=== PATIENT | male | born 1945 | race American Indian/Alaskan Native ===

== ENCOUNTER 2018-11-25 14:45 | Emergency (ER) | payer OTHER ==
[~2018-11-25] VITALS: Ht 177.8 cm; Wt 77.1 kg
[~2018-11-25 14:45] MED LIST: KEFLEX500 MG PO; NORCO 5-325 TA1 EACH PO
== END 2018-11-25 17:00 | disposition home or self-care (01) ==
LOC: ED 14:45
PROC: 0HQ0XZZ Repair Scalp Skin, External Approach (ICD-10-PCS; principal; 2018-11-25)
DX: S01.01XA Laceration without foreign body of scalp, initial encounter (principal); V19.9XXA Pedal cyclist (driver) (passenger) injured in unspecified traffic accident, initial encounter
CPT/HCPCS: 12002; 99282-25

== ENCOUNTER 2018-12-11 15:29 | Emergency (ER) | payer OTHER ==
[~2018-12-11] VITALS: Ht 177.8 cm; Wt 79.4 kg
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
== END 2018-12-11 16:07 | disposition home or self-care (01) ==
LOC: ED 15:29
DX: S01.01XD Laceration without foreign body of scalp, subsequent encounter (principal); Z90.49 Acquired absence of other specified parts of digestive tract
CPT/HCPCS: 99281

== ENCOUNTER 2019-12-23 18:43 | Inpatient (IN) | payer MEDICARE, MEDICAID, OTHER ==
[~2019-12-23] VITALS: Ht 177.8 cm; Wt 85.9 kg
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
--- OUTSIDE RECORDS SUMMARY | ~2019-12-23 | XMS | Encounter Summary ---
Demographics + + + | Address | [address] | | | [place] [address] | + + + | Home Phone | | + + + | Preferred Language | Unknown | + + + | Marital Status | Single | + + + | Quaker Affiliation | 1041 | + + + | Race | Unknown | + + + | Ethnic Group | Unknown | + + + Author + + + | Author | [facility] | | | and [place] | + + + | Organization | [facility] | | | and [place] | + + + | Address | Unknown | + + + | Phone | Unavailable | + + + Support + + +---------+ + | Name | Relationship | Address | Phone | + + +---------+ + | Jyoti Fay | ECON | Unknown | | + + +---------+ + Care Team Providers + +------+ + | Care Fiscal Accounting Clerk Name | Role | Phone | + +------+ + | Tomasz Vu MD | PCP | | + +------+ + Reason for Visit +--------+ + | Reason | Comments | +--------+ + | Other | plan of care | +--------+ + Encounter Details +--------+ + + + + | Date | Type | Department | Care Team | Description | +--------+ + + + + | 12/06/ | Telephone | [facility] | Andrew Gamboa, | Other (plan of care) | | 2020 | | CARDIOLOGY [address] | MD [address] | | | | | [place], | [place], | | | | | [place] [address] | [place] [address] | | | | | [phone] | [phone] | | | | | | | | +--------+ + + + + Social History + +-------+ +--------+------+ | Tobacco Use | Types | Packs/Day | Years | Date | | | | | Used | | + +-------+ +--------+------+ | Smoker, Current | | | | | | Status Unknown | | | | | + +-------+ +--------+------+ + + + | Sex Assigned at | Date Recorded | | | | + + + | Male | | + + + + + + + | Job Start Date | Occupation | Industry | + + + + | Not on file | Not on file | Not on file | + + + + + + + + | Travel History | Travel Start | Travel End | + + + + + + | No recent travel history available. | + + documented as of this encounter Functional Status + + + + | Functional Status | Response | Date of Assessment | + + + + | Are you deaf or do you have serious | No | 12/04/2019 | | difficulty hearing? | | | + + + + | Are you blind or do you have serious | No | 12/04/2019 | | difficulty seeing, even when wearing | | | | glasses? | | | + + + + | Do you have serious difficulty walking or | No | 12/04/2019 | | climbing stairs? (5 years old or older) | | | + + + + | Do you have difficulty dressing or bathing? | No | 12/04/2019 | | (5 years old or older) | | | + + + + | Because of a physical, mental, or emotional | No | 12/04/2019 | | condition, do you have difficulty doing | | | | errands alone such as visiting a doctor's | | | | office or shopping? [15 years old or | | | | older)] | | | + + + + + + + + | Cognitive Status | Response | Date of Assessment | + + + + | Because of a physical, mental, or emotional | No | 12/04/2019 | | condition, do you have serious difficulty | | | | concentrating, remembering, or making | | | | decisions? (5 years old or older) | | | + + + + documented as of this encounter Plan of Treatment +--------+ + + + + | Date | Type | Specialty | Care Team | Description | +--------+ + + + + | 12/30/ | Hospital | Radiology | Colin Diallo, | Cardiomyopathy, | | 2019 | Encounter | | MD Nash [address] | unspecified type | | | | | [address] [place], | ([facility]); [place], | | | | | [place] [address] | unspecified syncope | | | | | [phone] | type; Atrial | | | | | | flutter, unspecified | | | | | | type ([facility]) | +--------+ + + + + | 12/30/ | Surgery | Radiology | Colin Diallo, | CV EP ABLATION AF | 2019 | | | MD Nash [address] | | | | | | [address] [place], | | | | | | [place] [address] | | | | | | [phone] | | | | | | | | +--------+ + + + + | 01/14/ | Virtual | Cardiology | Andrew Gamboa, | | | 2019 | Office | | MD Richie Leone | | | | Visit | | [place], | | | | | | [place] [address] | | | | | | [phone] | | | | | | | | +--------+ + + + + documented as of this encounter Visit Diagnoses Not on filedocumented in this encounter"
--- OUTSIDE RECORDS SUMMARY | ~2019-12-23 | XMS | Encounter Summary ---
Demographics + + + | Address | [address] | | | [place] [address] | + + + | Home Phone | | + + + | Preferred Language | Unknown | + + + | Marital Status | Single | + + + | Orthodox Affiliation | 1041 | + + + | Race | Unknown | + + + | Ethnic Group | Unknown | + + + Author + + + | Author | [facility] | | | and [place] | + + + | Organization | [facility] | | | and [place] [...] Team Providers + +------+ + | Care Steam Pressure Chamber Operator Name | Role | Phone | + +------+ + | Tomasz Vu MD | PCP | | + +------+ + Reason for Visit + + + | Reason | Comments | + + + | Appointment | Consent | + + + Encounter Details +--------+ + + + + | Date | Type | Department | Care Team | Description | +--------+ + + + + | 12/02/ | Telephone | [facility] | Colin Diallo, | Appointment | | 2019 | | [facility] | [address] | (Consent) | | | | [address] | [address] [place], | | | | | [address] [place] | [place] [address] | | | | | [address] | [phone] | | | | | [phone] | | | +--------+ + + + [...] | | 2019 | Encounter | | [address] | unspecified type | | | | | [address] [place], | ([facility]); [place], | | | | | [place] [address] | unspecified syncope | | | | | [phone] | type; Atrial | | | | | | flutter, unspecified | | | | | | type ([facility]) | +--------+ + + + + | 12/30/ | Surgery | Radiology | Colin Diallo, | CV EP ABLATION AF | | 2019 | | | [address] | | | | | | [address] [place], | | | | | | [place] [address] | | | | | | [phone] | | | | | | | | +--------+ + + + + | 01/14/ | Virtual | Cardiology | Andrew Gamboa, | | | 2019 | Office | | MD Richie Leone | | | | Visit | | [place], | | | | | | [place] [address] | | | | | | [phone] | | | | | | | | +--------+ + + + + documented as of this encounter Visit Diagnoses Not on filedocumented in this encounter"
--- OUTSIDE RECORDS SUMMARY | ~2019-12-23 | XMS | Encounter Summary ---
Demographics + + + | Address | [address] | | | [place] [address] | + + + | Home Phone | | + + + | Preferred Language | Unknown | + + + | Marital Status | Single | + + + | Presybeterian Affiliation | 1041 | + + + | Race | Unknown | + + + | Ethnic Group | Unknown | + + + Author + + + | Author | [facility] | | | and [place] | + + + | Organization | [facility] | | | and [place] [...] Team Providers + +------+ + | Care Supervisor Braiding Name | Role | Phone | + +------+ + | Tomasz Vu MD | PCP | | + +------+ + Reason for Visit +---------+ + | Reason | Comments | +---------+ + | Dysuria | | +---------+ + Encounter Details +--------+ + + + + | Date | Type | Department | Care Team | Description | +--------+ + + + + | 12/19/ | Telephone | [facility] | Karla Becerra M, | Dysuria | | 2019 | | [facility] | RADIO REPAIRER [address] | | | | | [address] | [address] | | | | | [place] [address] [facility] | [place] [address] | | | | | [place], [place] | [phone] | | | | | [address] | | | | | | [phone] | | | +--------+ + + + + Social History + + + +--------+------+ | Tobacco Use | Types | Packs/Day | Years | Date | | | | | Used | | + + + +--------+------+ | Never Smoker | Cigarettes | | | | + + + +--------+------+ + +---+---+---+ | Smokeless Tobacco: | | | | | Never Used | | | | + +---+---+---+ + + +---------+ + | Alcohol Use | Drinks/Week | oz/Week | Comments | + + +---------+ + | Not Currently | | | | + + +---------+ + + +--------+ + | Physical Activity | Answer | Date Recorded | + +--------+ + | On average, how many days per week do you | 0 days | 12/18/2019 | | engage in moderate to strenuous exercise | | | | (like walking fast, running, jogging, | | | | dancing, swimming, biking, or other | | | | activities that cause a light or heavy | | | | sweat)? | | | + +--------+ + | On average, how many minutes do you engage | 0 min | 12/18/2019 | | in exercise at this level? | | | + +--------+ + + + + | Sex Assigned at | Date Recorded | | | | + + + | Male | 12/16/2019 9:57 AM PDT | + + + + + + [...] | 2019 | Encounter | | [address] | unspecified type | | | | | [address] [place], | ([facility]); [place], | | | | | [place] [address] | unspecified syncope | | | | | [phone] | type; Atrial | | | | | | flutter, unspecified | | | | | | type ([facility]) | +--------+ + + + + | 12/30/ | Surgery | Radiology | Colin Diallo, | CV EP ABLATION AF | 2019 | | | [address] | | | | | | [address] [place], | | | | | | [place] [address] | | | | | | [phone] | | | | | | | | +--------+ + + + + | 01/14/ | Virtual | Cardiology | Andrew Gamboa, | | | 2019 | Office | | [address] | | | | Visit | | [place], | | | | | | [place] [address] | | | | | | [phone] | | | | | | | | +--------+ + + + + documented as of this encounter Visit Diagnoses Not on filedocumented in this encounter"
--- OUTSIDE RECORDS SUMMARY | ~2019-12-23 | XMS | Encounter Summary ---
Demographics + + + | Address | [address] | | | [place] [address] | + + + | Home Phone | | + + + | Preferred Language | Unknown | + + + | Marital Status | Single | + + + | Sabianism Affiliation | 1041 | + + + | Race | Unknown | + + + | Ethnic Group | Unknown | + + + Author + + + | Author | [facility] | | | and [place] | + + + | Organization | [facility] | | | and [place] [...] Team Providers + +------+ + | Care Audio Production Instructor Name | Role | Phone | + +------+ + | Tomasz Vu MD | PCP | | + +------+ + Reason for Referral Evaluate & Treat (Routine) +--------+ + + + + + | Status | Reason | Specialty | Diagnoses / | Referred By | Referred To | | | | | Procedures | Contact | Contact | +--------+ + + + + + | Closed | Specialty | Cardiology | Diagnoses | Bee, | Yoel, | | | Services | | Typical | MD Andrew | Colin Benitez MD | | | Required | | atrial | [address] | [address] | | | | | flutter | [address] | [address] | | | | | (HCC) | [place], | [address], | | | | | Procedures | [place] [address] | [place] [address] | | | | | 12/21> DOS | Phone: | Phone: | | | | | 12/17> PEND | [phone] | [phone] | | | | | [facility] - URGENT | Fax: | Fax: | | | | | REFERRAL TO | [phone] | [phone] | | | | | YOEL, | | | | | | | COLIN | | | | | | | ELECTROPHYSI | | | | | | | OLOGIST FOR | | | | | | | OV possible | | | | | | | ablation | | | +--------+ + + + + + Encounter Details +--------+ + + + + | Date | Type | Department | Care Team | Description | +--------+ + + + + | 12/01/ | Orders Only | [facility] [place] | Andrew Gamboa, | Typical atrial | | 2020 | | CARDIOLOGY [address] | MD [address] [place] | flutter (HCC) | | | | [place], | [place], | (Primary Dx) | | | | [place] [address] | [place] [address] | | | | | [phone] | | | | | | | [...] | 2019 | Encounter | | [address] | unspecified type | | | | | [address] [place], | ([facility]); [place], | | | | | [place] [address] | unspecified syncope | | | | | [phone] | type; Atrial | | | | | | flutter, unspecified | | | | | | type ([facility]) | +--------+ + + + + | 12/30/ | Surgery | Radiology | Colin Diallo, | CV EP ABLATION AF | 2019 | | | [address] | | | | | | [address] [place], | | | | | | [place] [address] | | | | | | [phone] | | | | | | | | +--------+ + + + + | 01/14/ | Virtual | Cardiology | Andrew Gamboa, | | 2019 | Office | | MD Richie Leone | | | | Visit | | [place], | | | | | | [place] [address] | | | | | | [phone] | | | | | | | | +--------+ + + + + + + +--------+ + + | Name | Type | Priori | Associated Diagnoses | Order Schedule | | | | ty | | | + + +--------+ + + | External Referral to | Outpatient | Routin | Typical atrial | Ordered: 12/02/2019 | | [facility] | Referral | e | flutter (HCC) | | | [place] | | | | | + + +--------+ + + documented as of this encounter Visit Diagnoses + + | Diagnosis | + + | Typical atrial flutter (HCC) - Primary Atrial flutter | + + documented in this encounter"
--- OUTSIDE RECORDS SUMMARY | ~2019-12-23 | XMS | Encounter Summary ---
Demographics + + + | Address | [address] | | | [place] [address] | + + + | Home Phone | | + + + | Preferred Language | Unknown | + + + | Marital Status | Single | + + + | Mosque Affiliation | 1041 | + + + | Race | Unknown | + + + | Ethnic Group | Unknown | + + + Author + + + | Author | [facility] | | | and [place] | + + + | Organization | [facility] | | | and [place] [...] Team Providers + +------+ + | Care Scaffold Worker Name | Role | Phone | + [...] + | 12/02/ | Telephone | [facility] | Colin Diallo, | Appointment | | 2019 | | [facility] | [address] | (Consent) | | | | [address] | [address] [place], | | | | | [address] [place] [place] | [place] [address] | | | | | [address] | [phone] | | | | | [phone] | | | +--------+ + + + [...] | | | | | [address] [place], | ([facility]); [place], | | | | | [place] [address] | unspecified syncope | | | | | [phone] | type; Atrial | | | | | | flutter, unspecified | | | | | | type ([facility]) | +--------+ + + + + | 12/30/ | Surgery | Radiology | Colin Diallo, | CV EP ABLATION AF | | 2019 | | | [address] | | | | | | [address] [place], | | | | | | [place] [address] | | | | | | [phone] | | | | | | | | +--------+ + + + + | 01/14/ | Virtual | Cardiology | Andrew Gamboa, | | | 2019 | Office | | MD Richie Leone | | | | Visit | | [place], | | | | | | [place] [address] | | | | | | [phone] | | | | | | | | +--------+ + + + + documented as of this encounter Visit Diagnoses Not on filedocumented in this encounter"
--- OUTSIDE RECORDS SUMMARY | ~2019-12-23 | XMS | Encounter Summary ---
Demographics + + + | Address | [address] | | | [place] [address] | + + + | Home Phone | | + + + | Preferred Language | Unknown | + + + | Marital Status | Single | + + + | Hoahaoism Affiliation | 1041 | + + + | Race | Unknown | + + + | Ethnic Group | Unknown | + + + Author + + + | Author | [facility] | | | and [place] | + + + | Organization | [facility] | | | and [place] | [...] Team Providers + +------+ + | Care Screen Writer Name | Role | Phone | + +------+ + | Tomasz Vu MD | PCP | | + +------+ + Encounter Details +--------+ + + + + | Date | Type | Department | Care Team | Description | +--------+ + + + + | 12/03/ | Imaging | [facility] | Provider, | | | 2019 | Exam | [facility] | MD [address] | | | | | IMAGING [address] | [address] | | | | | [address] | [place] [address] | | | | | [place] [address] | | | | | | [phone] | | | +--------+ + + + + Social History + +-------+ +--------+------+ | Tobacco Use | Types | Packs/Day | Years | Date | | | | | Used | | + +-------+ +--------+------+ | Never Assessed | | | | | + +-------+ [...] | Colin Diallo, | Cardiomyopathy, | | 2020 | Encounter | | [address] | unspecified type | | | | | [address] | ([facility]); [place], | | | | | [place] [address] | unspecified syncope | | | | | [phone] | type; Atrial | | | | | | flutter, unspecified | | | | | | type (HCC) | +--------+ + + + + | 12/30/ | Surgery | Radiology | Colin Diallo, | CV EP ABLATION AF | | 2019 | | | [address] | | | | | | [address] [place], | | | | | | [place] [address] | | | | | | [phone] | | | | | | | | +--------+ + + + + | 01/14/ | Virtual | Cardiology | Andrew Gamboa, | | | 2019 | Office | | [facility] | | | | Visit | | [place], | | | | | | [place] [address] | | | | | | [phone] | | | | | | | | +--------+ + + + + documented as of this encounter Procedures + +--------+ + + + | Procedure Name | Priori | Date/Time | Associated Diagnosis | Comments | | | ty | | | | + +--------+ + + + | XR CHEST 1 VIEW | Routin | 12/01/2019 | | Results for this | | | e | 1:30 PM | | procedure are in the | | | | PDT | | results section. | + +--------+ + + + documented in this encounter Results XR Chest 1 Vw (12/01/2019 1:30 PM PDT) + + | Specimen | + + | | + + + + + | Narrative | Performed At | + + + | External films for comparison only | [facility] | | | | | No results will be in the chart. | | + + + + +---------+ + + | Performing | Address | City/State/Zipcode | Phone Number | | Organization | | | | + +---------+ + + | [facility] | | | | + +---------+ + + documented in this encounter Visit Diagnoses Not on filedocumented in this encounter"
--- OUTSIDE RECORDS SUMMARY | ~2019-12-23 | XMS | Encounter Summary ---
Demographics + + + | Address | [address] | | | [place] [address] | + + + | Home Phone | | + + + | Preferred Language | Unknown | + + + | Marital Status | Single | + + + | Adventist Affiliation | 1041 | + + + | Race | Unknown | + + + | Ethnic Group | Unknown | + + + Author + + + | Author | [facility] | | | and [place] | + + + | Organization | [facility] | | | and [place] [...] Team Providers + +------+ + | Care Recruitment Assistant Name | Role | Phone | + +------+ + | Tomasz Vu MD | PCP | | + +------+ + Encounter Details +--------+ + + + + | Date | Type | Department | Care Team | Description | +--------+ + + + + | 12/03/ | [facility] | [facility] | Stephanie Ashby, PT | | | 2020 | Encounter | MED CTR ACUTE | | | | | | PHYSICAL THERAPY | | | | | | [address] | | | | | | [place] [address] | | | | | | [phone] | | | +--------+ + + + [...] + + documented as of this encounter Medications at Time of Discharge + + + +---------+ + + | Medication | Sig | Dispensed | Refills | Start | End Date | | | | | | Date | | + + + +---------+ + + | amiodarone | 2 tablets twice a | 100 | 0 | 12/04/19 | | | (PACERONE) 200 mg | day for 6 days then | tablet | | 20 | | | tablet | reduce dose to 1 | | | | | | | tablet once a day by | | | | | | | mouth | | | | | + + + +---------+ + + | apixaban (ELIQUIS) | Take 1 tablet by | 60 | 0 | 12/04/19 | | | 5 mg | mouth 2 times daily. | tablet | | 20 | | | tabletIndications: | Indications: Atrial | | | | | | Atrial Fibrillation | Fibrillation | | | | | + + + +---------+ + + | lisinopril | Take 1 tablet by | 60 | 0 | 12/04/19 | | | (PRINIVIL, ZESTRIL) | mouth 2 times daily | tablet | | 20 | | | 5 mg tablet | (at breakfast and | | | | | | | bedtime). | | | | | + + + +---------+ + + | UNCODED DME | Blood pressure kit | 1 each | 0 | 12/04/19 | | | | for home monitoring | | | 20 | | | | check BP twice a day | | | | | | | and prn | | | | | + + + +---------+ + + | UNCODED DME | Finger Oximeter for | 1 each | 0 | 12/04/19 | | | | home use check twice | | | 20 | | | | a day and prn | | | | | + + + +---------+ + + | aspirin 81 MG EC | Take 1 tablet by | 30 | 0 | 12/05/19 | | | tablet | mouth Daily. | tablet | | 20 | 0 | + + + +---------+ + + | atorvaSTATin | Take 1 tablet by | 30 | 0 | 12/04/19 | | | (LIPITOR) 20 mg | mouth nightly. | tablet | | 20 | 0 | | tablet | | | | | | + + + +---------+ + + documented as of this encounter Plan of Treatment +--------+ + + + + | Date | Type | Specialty | Care Team | Description | +--------+ + + + + | 12/30/ | Hospital | Radiology | Colin Diallo, | Cardiomyopathy, | | 2019 | Encounter | | MD Nash [address] | unspecified type | | | | | [address] [place], [place] [address], | ([facility]); Syncope, | | | | | [place] [address] | unspecified syncope | | | | | [phone] | type; Atrial | | | | | | flutter, unspecified | | | | | | type ([facility]) | +--------+ + + + + | 12/30/ | Surgery | Radiology | Colin Diallo, | CV EP ABLATION AF | | 2019 | | | MD Nash [address] | | | | | | [address] [place], | | | | | | [place] [address] | | | | | | [phone] | | | | | | | | +--------+ + + + + | 01/14/ | Virtual | Cardiology | Andrew Gamboa, | | | 2019 | Office | | MD Richie Leone | | | | Visit | | [place], | | | | | | [place] [address] | | | | | | [phone] | | | | | | | | +--------+ + + + + documented as of this encounter Visit Diagnoses Not on filedocumented in this encounter"
--- OUTSIDE RECORDS SUMMARY | ~2019-12-23 | XMS | Encounter Summary ---
Demographics + + + | Address | [address] | | | [place] [address] | + + + | Home Phone | | + + + | Preferred Language | Unknown | + + + | Marital Status | Single | + + + | Adventist Affiliation | 1041 | + + + | Race | Unknown | + + + | Ethnic Group | Unknown | + + + Author + + + | Author | [facility] | | | and [place] | + + + | Organization | [facility] | | | and [place] [...] Team Providers + +------+ + | Care Qa Internship Name | Role | Phone | + [...] | 12/06/ | Telephone | [facility] [place] | Andrew Gamboa, | Other (plan of care) | | 2020 | | CARDIOLOGY [address] | MD [address] [place] | | | | | [place], | [place], | | | | | [place] [address] | [place] [address] | | | | | [phone] | [phone] | | | | | | | [...] 2019 | Encounter | | MD Nash [address] | unspecified type | | | | | [address] [place], | ([facility]); [place], | | | | | [place] [address] | unspecified syncope | | | | | [phone] | type; Atrial | | | | | | flutter, unspecified | | | | | | type ([facility]) | +--------+ + + + + | 12/30/ | Surgery | Radiology | Colin Diallo, | CV EP ABLATION AF | 2019 | | | MD Nash [address] | | | | | | [address] [place], | | | | | | [place] [address] | | | | | | [phone] | | | | | | | | +--------+ + + + + | 01/14/ | Virtual | Cardiology | Andrew Gamboa, | | | 2019 | Office | | MD [address] | | | | Visit | | [place], | | | | | | [place] [address] | | | | | | [phone] | | | | | | | | +--------+ + + + + documented as of this encounter Visit Diagnoses Not on filedocumented in this encounter"
--- OUTSIDE RECORDS SUMMARY | ~2019-12-23 | XMS | Encounter Summary ---
Demographics + + + | Address | [address] | | | [place] [address] | + + + | Home Phone | | + + + | Preferred Language | Unknown | + + + | Marital Status | Single | + + + | Zoroastrian Affiliation | 1041 | + + + | Race | Unknown | + + + | Ethnic Group | Unknown | + + + Author + + + | Author | [facility] | | | and [place] | + + + | Organization | [facility] | | | and [place] [...] Team Providers + +------+ + | Care Barrel And Receiver Aligner Name | Role | Phone | + +------+ + | Tomasz Vu MD | PCP | | + +------+ + Reason for Visit + + + | Reason | Comments | + + + | Hospital Follow-up | | + + + | Atrial Flutter | | + + + Evaluate & Treat (Routine) +--------+ + + + + + | Status | Reason | Specialty | Diagnoses / | Referred By | Referred To | | | | | Procedures | Contact | Contact | +--------+ + + + + + | Closed | Specialty | Cardiology | Diagnoses | Joseph, | Bee | | | Services | | Acute | Heath Fang MD | MD Andrew | | | Required | | systolic | [address] | | | | | congestive | [address] | [address] | | | | | heart | [place], | [place], | | | | | failure | [place] [address] | [place] [address] | | | | | (HCC) | Phone: | Phone: | | | | | | [phone] | [phone] | | | | | | Fax: | Fax: | | | | | | [phone] | [phone] | +--------+ + + + + + Encounter Details +--------+ + + + + | Date | Type | Department | Care Team | Description | +--------+ + + + + | 12/15/ | Virtual | [facility] [place] | Andrew Gamboa, | Typical atrial | | 2020 | Office | CARDIOLOGY [address] | MD [address] | flutter (HCC) | | | Visit | [place], | [place], | (Primary Dx) | | | | [place] [address] | [place] [address] | | | | | [phone] | | | | | | | [...] | | + + +---------+ + + + + | Sex Assigned [...] | 2019 | Encounter | | [address] | unspecified type | | | | | [address] [place] | ([facility]); [place], | | | | | [place] [address] | unspecified syncope | | | | | [phone] | type; Atrial | | | | | | flutter, unspecified | | | | | | type ([facility]) | +--------+ + + + + | 12/30/ | Surgery | Radiology | Colin Diallo, | CV EP ABLATION AF | 2019 | | | [address] | | | | | | [address] [place], | | | | | | [place] [address] | | | | | | [phone] | | | | | | | | +--------+ + + + + | 01/14/ | Virtual | Cardiology | Andrew Gamboa, | | | 2019 | Office | | [address] [place] | | | | Visit | | [place], | | | | | | [place] [address] | | | | | | [phone] | | | | | | | | +--------+ + + + + + +------+--------+ + + | Name | Type | Priori | Associated Diagnoses | Order Schedule | | | | ty | | | + +------+--------+ + + | ECG 12 lead | ECG | Routin | Typical atrial | Ordered: 12/16/2019 | | | | e | flutter (HCC) | | + +------+--------+ + + documented as of this encounter Visit Diagnoses + + | Diagnosis | + + | Typical atrial flutter (HCC) - Primary Atrial flutter | + + documented in this encounter"
--- OUTSIDE RECORDS SUMMARY | ~2019-12-23 | XMS | Encounter Summary ---
Demographics + + + | Address | [address] | | | [place] [address] | + + + | Home Phone | | + + + | Preferred Language | Unknown | + + + | Marital Status | Single | + + + | Protestant Affiliation | 1041 | + + + | Race | Unknown | + + + | Ethnic Group | Unknown | + + + Author + + + | Author | [facility] | | | and [place] | + + + | Organization | [facility] | | | and [...] Team Providers + +------+ + | Care Property Management Assistant Name | Role | Phone | + +------+ + | Tomasz Vu MD | PCP | | + +------+ + Encounter Details +--------+ + + + + | Date | Type | Department | Care Team | Description | +--------+ + + + + | 12/01/ | Orders Only | [facility] | Ana Nino, | Atrial flutter, | | 2019 | | MED CTR OR PRE OP | RN | unspecified type | | | | [address] [place] | | ([facility]) | | | | [place] [address] | | | | | | [phone] | | | +--------+ + + + [...] | | 2020 | Encounter | | MD [address] | unspecified type | | | | | [address] [place], | ([facility]); [place], | | | | | [place] [address] | unspecified syncope | | | | | [phone] | type; Atrial | | | | | | flutter, unspecified | | | | | | type ([facility]) | +--------+ + + + + | 12/30/ | Surgery | Radiology | Colin Diallo, | CV EP ABLATION AF | | 2019 | | | [address] | | | | | | [address] [place], | | | | | | [place] [address] | | | | | | [phone] | | | | | | | | +--------+ + + + + | 01/14/ | Virtual | Cardiology | Andrew Gamboa, | | 2019 | Office | | MD [address] [place] | | | | Visit | | [place], | | | | | | [place] [address] | | | | | | [phone] | | | | | | | | +--------+ + + + + documented as of this encounter Results EP CARDIOVERSION (12/02/2019 1:45 PM PDT) + + + | Narrative | Performed At | + + + | Andrew Gamboa MD 12/02/2019 1:45 PM CARDIOVERSION | [facility] | | REPORT PATIENT NAME/: Esa Leigh, (1945) | [facility] | | DATE OF PROCEDURE: 12/02/2019 | [facility] | | RESIDENTIAL PROPERTY CONSULTANT: Andrew Gamboa MD Procedures | - IMAGING | | Performed: 1. Deep sedation. 2. Direct current external | | | cardioversion. Indication: Symptomatic persistent atrial flutter | | | OPERATIVE TECHNIQUE: The patient was attached to hemodynamic | | | monitoring. Defibrillator pads were placed in the AP position. | | | Nursing and Respiratory Therapy were present. After informed | | | consent was obtained the patient was sedated by the anesthesia | | | service . Once deep sedation was achieved, synchronized, biphasic | | | DC cardioversion was performed with successful synchronized 150 J. | | | There was succesful conversion to sinus rhythm. The patient was | | | then monitored until fully alert and left the procedure area in | | | stable condition. IMPRESSION: Succesful DC | | | cardioversion. No apparent complications Electronically | | | signed by: Andrew Gamboa MD on 12/02/2019 at 1:45 PM | | + + + + + + + + | Performing | Address | City/State/Zipcode | Phone Number | | Organization | | | | + + + + + | [facility] | [address] | [place] | [phone] | | [facility] | | [address] | | | - IMAGING | | | | + + + + + documented in this encounter Visit Diagnoses + + | Diagnosis | + + | Atrial flutter, unspecified type (HCC) | + + documented in this encounter"
--- OUTSIDE RECORDS SUMMARY | ~2019-12-23 | XMS | Encounter Summary ---
Demographics + + + | Address | [address] | | | [place] [address] | + + + | Home Phone | | + + + | Preferred Language | Unknown | + + + | Marital Status | Single | + + + | Yarsani Affiliation | 1041 | + + + | Race | Unknown | + + + | Ethnic Group | Unknown | + + + Author + + + | Author | [facility] | | | and [place] | + + + | Organization | [facility] | | | and [place] | + [...] Team Providers + +------+ + | Care Tight Rope Walker Name | Role | Phone | + +------+ + | Tomasz Vu MD | PCP | | + +------+ + Encounter Details +--------+ + + + + | Date | Type | Department | Care Team | Description | +--------+ + + + + | 12/01/ | Anesthesia | [facility] | Kem Kumar | | | 2020 | Event | [facility] ECHO [address] | MD Sam [address] | | | | | [place] | [address] [place] | | | | | [place] [address] | [address] | | | | | [phone] | | | | | | | Ivan Gatica | | | | | | MD Conchis [address] | | | | | | [address] [facility] | | | | | | [place] [address] | | | | | | | | | | | | | | +--------+ + + + + Anesthesia Record + + + + + | Procedure Name | Responsible | Anesthesia Start | Anesthesia Stop Time | | | Anesthesiologist | Time | | + + + + + | ECHO TRANSESOPHAGEAL | Kem Kumar, | 12/02/19 1313 | 12/02/19 1334 | | (ANDI) | | | | + + + + + +----+---+ + + | Da | T | Event | Comment | | te | i | | | | | m | | | | | e | | | +----+---+ + + | 04 | 1 | | | | /0 | 3 | | | | 8/ | 1 | | | | 20 | 3 | | | | 20 | | | | +----+---+ + + | | 1 | An Checkout | Pre-use anesthesia machine/equipment checkout. | | | 3 | | | | | 1 | | | | | 3 | | | +----+---+ + + | | 1 | An Start | Reassessment prior to anesthesia induction/procedure. | | | 3 | | | | | 1 | | | | | 3 | | | +----+---+ + + | | 1 | AN | Per surgeon request | | | 3 | Antibiotic | | | | 1 | declined | | | | 8 | | | +----+---+ + + | | 1 | Pre-Procedu | | | | 3 | ral Timeout | | | | 1 | Completed | | | | 8 | | | +----+---+ + + | | 1 | An | Monitors applied, supplemental O2 place, patient positioned, time | | | 3 | Induction | out taken, IV induction to the point of the patient being | | | 2 | | unconscious and un responsive, breathing spontaneously. | | | 0 | | | +----+---+ + + | | 1 | Breathing | | | | 3 | Spontaneous | | | | 2 | ly | | | | 8 | | | +----+---+ + + | | 1 | An Stop | Patient handed off to recovery nurse. | | | 3 | | | | | 4 | | | +----+---+ + + +------+ | Meds | +------+ + +--------+ | Name | Total | + +--------+ | lidocaine 2% | 40 mg | + +--------+ | propofol | 100 mg | + +--------+ | sodium chloride 0.9% (NS) | 200 mL | | infusion | | + +--------+ + + | Name | + + | O2 Flow Rate (L/Min) | + + + + | No blood administrations on file. | + + +--------+ + + + | Type | Details | Placement | Removal | +--------+ + + + | Periph | 12/01/19; Left; Posterior | 12/01/19 0000 by Lulu | 12/04/19 1535 by | | chloe | (dorsal); Forearm; | Emmanuel Jack RN | Efrain Quintero RN | | IV | vuws-tlx-zobwue catheter system; | | | | | 20 gauge; 12/04/19; 1535 | | | +--------+ + + + | Periph | 12/01/19; Right; Posterior | 12/01/19 0000 by Lulu | 12/04/19 1535 by | | eral | (dorsal); Forearm; | Emmanuel Jack RN | Efrain Quintero RN | | IV | sgeu-qti-bwhhjp catheter system; | | | | | 18 gauge; expected removal post | | | | | discharge; 12/04/19; 1535 | | | +--------+ + + + documented in this encounter Social History + +-------+ +--------+------+ | Tobacco [...] | 2019 | Encounter | | MD Charity DURAN | unspecified type | | | | | [place], | ([facility]); [place], | | | | | [place] [address] | unspecified syncope | | | | | [phone] | type; Atrial | | | | | | flutter, unspecified | | | | | | type ([facility]) | +--------+ + + + + | 12/30/ | Surgery | Radiology | Colin Diallo, | CV EP ABLATION AF | 2019 | | | MD Charity [place]PLEE | | | | | | [place], | | | | | | [place] [address] | | | | | | [phone] | | | | | | | | +--------+ + + + + | 01/14/ | Virtual | Cardiology | Andrew Gamboa, | | | 2020 | Office | | MD [address] [place] | | | | Visit | | [place], | | | | | | [place] [address] | | | | | | [phone] | | | | | | | | +--------+ + + + + documented as of this encounter Visit Diagnoses Not on filedocumented in this encounter Administered Medications + +--------+ +-------+------+------+ | Medication Order | MAR | Action | Dose | Rate | Site | | | Action | Date | | | | + +--------+ +-------+------+------+ | lidocaine (PF) 2% injection | Given | 12/02/19 | 40 mg | | | | Intravenous, PRN, Starting Wed | | 20 1:17 | | | | | 12/02/19 at 1317, Anesthesia | | PM PDT | | | | | Intra-op | | | | | | + +--------+ +-------+------+------+ +---+---+ | | | +---+---+ + +-------+ +-------+---+---+ | propofol (DIPRIVAN) injection | Given | 12/02/19 | 50 mg | | | | Intravenous, PRN, Starting Wed | | 20 1:25 | | | | | 12/02/19 at 1321, Anesthesia | | PM PDT | | | | | Intra-op | | | | | | + +-------+ +-------+---+---+ +-------+ +-------+---+---+ | Given | 12/02/19 | 50 mg | | | | | 20 1:21 | | | | | | PM PDT | | | | +-------+ +-------+---+---+ +---+---+ | | | +---+---+ + +---------+ +---+---+---+ | sodium chloride 0.9% (NS) | New Bag | 12/02/19 | | | | | infusion at 125 mL/hr, | | 20 1:03 | | | | | Intravenous, CONTINUOUS, Starting | | PM PDT | | | | | 12/02/19 at 1215, For | | | | | | | procedure only, not to exceed 1 | | | | | | | liter., Pre-op | | | | | | + +---------+ +---+---+---+ +---+---+ | | | +---+---+ documented in this encounter"
--- OUTSIDE RECORDS SUMMARY | ~2019-12-23 | XMS | Encounter Summary ---
Demographics + + + | Address | [address] | | | [place] [address] | + + + | Home Phone | | + + + | Preferred Language | Unknown | + + + | Marital Status | Single | + + + | Oriental Orthodox Affiliation | 1041 | + + + | Race | Unknown | + + + | Ethnic Group | Unknown | + + + Author + + + | Author | [facility] | | | and [place] | + + + | Organization | [facility] | | | and [place] [...] Team Providers + +------+ + | Care Blueprint Blocker Name | Role | Phone | + +------+ + | Tomasz Vu MD | PCP | | + +------+ + Reason for Referral Diagnostic/Screening (Routine) +--------+--------+ + + + + | Status | Reason | Specialty | Diagnoses / | Referred By | Referred To | | | | | Procedures | Contact | Contact | +--------+--------+ + + + + | Closed | | Cardiology | Diagnoses | Bee, | Bee, | | | | | Atrial | MD Andrew | MD Andrew | | | | | flutter, | [address] | | | | | unspecified | [address] | [address] | | | | | type (HCC) | [place], | [place], | | | | | Procedures | [place] [address] | [place] [address] | | | | | EP | Phone: | Phone: | | | | | Cardioversio | [phone] | [phone] | | | | | n [place] | Fax: | Fax: | | | | | CARDIOVERSIO | [phone] | [phone] | | | | | N ELECTIVE | | | | | | | ARRHYTHMIA | | | | | | | INTERNAL SPX | | | | | | | [place] | | | | | | | ANESTH,CARDI | | | | | | | AC CATH | | | | | | | W/CORON ART | | | | | | | & VENT Done | | | | | | | on 12/02/19 - | | | | | | | patient | | | | | | | admitted | | | +--------+--------+ + + + + Diagnostic/Screening (Routine) +--------+--------+ + + + + | Status | Reason | Specialty | Diagnoses / | Referred By | Referred To | | | | | Procedures | Contact | Contact | +--------+--------+ + + + + | Closed | | Radiology | Diagnoses | [place], | [facility] | | | | | Atrial | MD Andrew | [address] | | | | | flutter, | [address] | [place], | | | | | unspecified | [address] | [place] | | | | | type (HCC) | [place], | [address] | | | | | Procedures | [place] [address] | Phone: | | | | | ECHO | Phone: | [phone] | | | | | Transesophag | [phone] | Fax: | | | | | eal (ANDI) | Fax: | [phone] | | | | | | [phone] | | +--------+--------+ + + + + Encounter Details +--------+ + + + + | Date | Type | Department | Care Team | Description | +--------+ + + + + | 12/01/ | Orders Only | [facility] [place] | Andrew Gamboa, | Atrial flutter, | | 2020 | | CARDIOLOGY [address] | [address] [place] [address] | unspecified type | | | | [place], | [place], | (HCC) (Primary Dx) | | | | [place] [address] | [place] [address] | | | | | [phone] | | | | | | | [...] | | | [address] [place], | ([facility]); [place], | | | | | [place] [address] | unspecified syncope | | | | | [phone] | type; Atrial | | | | | | flutter, unspecified | | | | | | type ([facility]) | +--------+ + + + + | 12/30/ | Surgery | Radiology | Colin Diallo, | CV EP ABLATION AF | | 2019 | | | [address] | | | | | | [address] [place], | | | | | | [place] [address] | | | | | | [phone] | | | | | | | | +--------+ + + + + | 01/14/ | Virtual | Cardiology | Andrew Gamboa, | | | 2019 | Office | | [address] | | | | Visit | | [place], | | | | | | [place] [address] | | | | | | [phone] | | | | | | | | +--------+ + + + + documented as of this encounter Results EP CARDIOVERSION (12/02/2019 1:45 PM PDT) + + + | Narrative | Performed At | + + + | Andrew Gamboa MD 12/02/2019 1:45 PM CARDIOVERSION | [facility] | | REPORT PATIENT NAME/: Esa Leigh, (1945) | [facility] | | DATE OF PROCEDURE: 12/02/2019 | [facility] | | RETANNER: Andrew Gamboa MD Procedures | - IMAGING [...] | + + + + + | [facility] | [address] | [place], [place] | [phone] | | [facility] | | [address] | | | - IMAGING | | | | + + + + + ECHO Transesophageal (ANDI) (12/02/2019 1:31 PM PDT) + +-------+ + + + | Component | Value | Ref Range | Performed | Pathologist | | | | | At | Signature | + +-------+ + + + | Vitals | 177.8 | | [facility] | | | Height | | | | | + +-------+ + + + | Vitals | 71.40 | | [facility] | | | Weight | | | | | + +-------+ + + + | LVEF-TTE | 35 | % | [facility] | | | TRANSTHORAC | | | | | | IC ECHO | | | | | + +-------+ + + + + + | Specimen | + + | | + + + + + | Narrative | Performed At | + + + | 1. Mild left | [facility] | | atrial dilatation.2. Normal left atrial appendage without thrombus | | | seen.3. Normal left ventricular size and wall thickness with a | | | moderate global hypokinesis of the left ventricle. Overall, left | | | ventricular significant is moderately decreased. LVEF 30 to 35%.4. 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 | | + + + + +---------+ + + | Performing | Address | City/State/Zipcode | Phone Number | | Organization | | | | + +---------+ + + | [facility] | | | | + +---------+ + + documented in this encounter Visit Diagnoses + + | Diagnosis | + + | Atrial flutter, unspecified type (HCC) - Primary | + + documented in this encounter"
--- OUTSIDE RECORDS SUMMARY | ~2019-12-23 | XMS | Encounter Summary ---
Demographics + + + | Address | [address] | | | [place] [address] | + + + | Home Phone | | + + + | Preferred Language | Unknown | + + + | Marital Status | Single | + + + | Hindu Affiliation | 1041 | + + + | Race | Unknown | + + + | Ethnic Group | Unknown | + + + Author + + + | Author | [facility] | | | and [place] | + + + | Organization | [facility] | | | and [place] [...] Team Providers + +------+ + | Care Roller Man Name | Role | Phone | + [...] | | | | | congestive | [address] | [address] | | | | | heart | [place], | [place], | | | | | failure | [place] [address] | [place] [address] | | | | | (HCC) | Phone: | Phone: | | | | | | [phone] | [phone] | | | | | | Fax: | Fax: | | | | | | [phone] | [phone] | +--------+ + + + + + Encounter Details +--------+ + + + + | Date | Type | Department | Care Team | Description | +--------+ + + + + | 12/15/ | Virtual | [facility] [place] | Andrew Gamboa, | Typical atrial | | 2020 | Office | CARDIOLOGY [address] | MD [address] | flutter (HCC) | | | Visit | [address] [place], | [place], | (Primary Dx) | | | | [place] [address] | [place] [address] | | | | | [phone] | | | | | | | [...] | 2019 | Encounter | | [address] | unspecified type | | | | | [address] | ([facility]); [place]ope, | | | | | [place] [address] | unspecified syncope | | | | | [phone] | type; Atrial | | | | | | flutter, unspecified | | | | | | type ([facility]) | +--------+ + + + + | 12/30/ | Surgery | Radiology | Colin Diallo, | CV EP ABLATION AF | 2019 | | | [address] | | | | | | [address] [place], | | | | | | [place] [address] | | | | | | [phone] | | | | | | | | +--------+ + + + + | 01/14/ | Virtual | Cardiology | Andrew Gamboa, | | | 2019 | Office | | [address] | | | | Visit | | [place], | | | | | | [place] [address] | | | | | | [phone] | | | | | | | [...]
--- OUTSIDE RECORDS SUMMARY | ~2019-12-23 | XMS | Encounter Summary ---
Demographics + + + | Address | [address] | | | [place] [address] | + + + | Home Phone | | + + + | Preferred Language | Unknown | + + + | Marital Status | Single | + + + | Religion Affiliation | 1041 | + + + | Race | Unknown | + + + | Ethnic Group | Unknown | + + + Author + + + | Author | [facility] | | | and [place] | + + + | Organization | [facility] | | | and [...] Team Providers + +------+ + | Care Burring Machine Operator Name | Role | Phone | [...] | atrial | [address] | [address] | | | | | flutter | [address] | [address] | | | | | (HCC) | [place], | [address], | | | | | Procedures | [place] [address] | [place] [address] | | | | | 12/21> DOS | Phone: | Phone: | | | | | 12/17> PEND | [phone] | [phone] | | | | | [facility] - URGENT | Fax: | Fax: | | | | | REFERRAL TO | [phone] | [phone] | | | | | [facility], | [...] CARDIOLOGY [address] | MD [address] [place] | flutter (HCC) | | | | [place], | [place], | (Primary Dx) | | | | [place] [address] | [place] [address] | | | | | [phone] | | | | | | | [...] | 2019 | Encounter | | [address] | unspecified type | | | | | [address] [place], | ([facility]); [place], | | | | | [place] [address] | unspecified syncope | | | | | [phone] | type; Atrial | | | | | | flutter, unspecified | | | | | | type ([facility]) | +--------+ + + + + | 12/30/ | Surgery | Radiology | Colin Diallo, | CV EP ABLATION AF | 2019 | | | [address] | | | | | | [address] [place], | | | | | | [place] [address] | | | | | | [phone] | | | | | | | | +--------+ + + + + | 01/14/ | Virtual | Cardiology | Andrew Gamboa, | | 2019 | Office | | MD [address]ie [address] | | | | Visit | | [place], | | | | | | [place] [address] | | | | | | [phone] | | | | | | | [...]
--- OUTSIDE RECORDS SUMMARY | ~2019-12-23 | XMS | Encounter Summary ---
Demographics + + + | Address | [address] | | | [place] [address] | + + + | Home Phone | | + + + | Preferred Language | Unknown | + + + | Marital Status | Single | + + + | Druze Affiliation | 1041 | + + + | Race | Unknown | + + + | Ethnic Group | Unknown | + + + Author + + + | Author | [facility] | | | and [place] | + + + | Organization | [facility] | | | and [...] Team Providers + +------+ + | Care Asset Liability Analyst Name | Role | Phone | + +------+ + | Tomasz Vu MD | PCP | | + +------+ + Encounter Details +--------+ + + + + | Date | Type | Department | Care Team | Description | +--------+ + + + + | [facility] | Andrew Gamboa, | Typical atrial | | 2019 | Encounter | [facility] | MD Richie Leone | flutter (HCC); Acute | | | | [address] | [place], | systolic congestive | | | | [place], [place] | [place] [address] | heart failure (HCC) | | | | [address] | [phone] | | | | | [phone] | | | +--------+ + + + + Social History + + + +--------+------+ | Tobacco Use | Types | Packs/Day | Years | Date | | | | | Used | | + + + +--------+------+ | Current Every Day | Cigarettes | | | | | Smoker | | | | | + + + +--------+------+ + + + | Sex Assigned [...] + + documented as of this encounter Last Filed Vital Signs + + + + + | Vital Sign | Reading | Time Taken | Comments | + + + + + | Blood Pressure | 131/81 | 12/14/2019 10:45 AM | | | | | PDT | | + + + + + | Pulse | 97 | 12/14/2019 10:45 AM | | | | | PDT | | + + + + + | Temperature | 36.7 C (98.1 F) | 12/14/2019 8:06 AM | | | | | PDT | | + + + + + | Respiratory Rate | 19 | 12/14/2019 10:45 AM | | | | | PDT | | + + + + + | Oxygen Saturation | 100% | 12/14/2019 10:45 AM | | | | | PDT | | + + + + + | Inhaled Oxygen | - | - | | | Concentration | | | | + + + + + | Weight | 84.2 kg (185 lb 10 | 12/14/2019 8:06 AM | | | | oz) | PDT | | + + + + + | Height | 177.8 cm (5' 10") | 12/14/2019 8:06 AM | | | | | PDT | | + + + + + | Body Mass Index | 26.63 | 12/14/2019 8:06 AM | | | | | PDT | | + + + + + documented in this encounter Functional Status + + + [...] + + documented as of this encounter Discharge Instructions Instructions Ana Nino RN - 12/14/2019 Home Care Instructions after Cardiac Catheterization Radial Approach Care of the puncture site: You May Shower the day after your procedure, but leave the Tegaderm dressing in place for 2 -3 days if possible. (if the dressing gets soaked and becomes loose or dislodged - simply d ry the site and apply a Bandaid). For the Next 3 days: Gently clean the site using soap and water while in the shower. Dry thoroughly DO NOT rub the site DO NOT use lotions or powders in the area. Cover site with a bandaid. Make sure to cover the entire area. A square adhesive steward id works well. DO NOT use a hot tub, bath tub, or swimming pool until the site is completely healed. Keep the site clean and dry to prevent infection. (May cover with a Bandaid if desired) . Inspect the site daily for redness, swelling, drainage, or streaks going toward your elb ow or upper arm. Activity: Do not let anyone take your blood pressure on that arm for 3 days. Keep your arm elevated overnight and while at rest for 2-3 days to prevent swelling. No vigorous or strenuous activities for one week. Do NOT lift more than 10 pounds for 4 days or until the wound has healed. What to expect: Soreness or tenderness at the site may last 1-2 weeks. Bruising at the site may take 2-3 weeks to resolve. What to do for minor pain: You may use Tylenol as needed for pain and as directed on the label. You may also use cold packs or warm packs to the site for 20 minutes every 2 hours if ne eded. Call 911 for emergency help if... Bleeding or sudden swelling at the site. Apply direct pressure and raise your arm above th e level of your heart. If the bleeding does not stop after 5 minutes of placing constant pr essure on the site call for help. Call your doctor right away if you notice: Any signs of infection - redness, swelling or drainage at the site. Sever pain at the site. Recovery After Procedural Sedation You have been given medicine by vein to make you sleep during your surgery. This may have i ncluded both a pain medicine and sleeping medicine. Most of the effects have worn off. But y ou may still have some drowsiness for the next 6 to 8 hours. Home care Follow these guidelines when you get home: For the next 8 hours, you should be watched by a responsible adult. This person should m fermin sure your condition is not getting worse. Don't drink any alcoholfor the next [address], operate dangerous machinery, or make important business or personal decisio nsduring the next 24 hours. Note: Your healthcare provider may tell you not to take any medicine by mouth for pain or s leep in the next 4 hours. These medicines may react with the medicines you were given in the hospital. This could cause a much stronger response than usual. Follow-up care Follow up with your healthcare provider if you are not alert and back to your usual level o f activity within 12 hours. When to seek medical advice Call your healthcare provider right away if any of these occur: Drowsiness gets worse Weakness or dizziness gets worse Repeated vomiting You can't be awakened documented in this encounter Medications at Time of Discharge [...] 2019 | Encounter | | MD Nash [address] | unspecified type | | | | | [address] [place], | ([facility]); Syncope, | | | | | [place] [address] | unspecified syncope | | | | | [phone] | type; Atrial | | | | | | flutter, unspecified | | | | | | type ([facility]) | +--------+ + + + + | 12/30/ | Surgery | Radiology | Colin Diallo, | CV EP ABLATION AF | 2019 | | | MD Nash [address] | | | | | | [address] [place], | | | | | | [place] [address] | | | | | | [phone] | | | | | | | | +--------+ + + + + | 01/14/ Virtual | Cardiology | IsmaAndrew dawn, | | | 2019 | Office | | MD Richie Leone | | | | Visit | | [place], | | | | | | [place] [address] | | | | | | [phone] | | | | | | | | +--------+ + + + + documented as of this encounter Procedures + +--------+ + + + | Procedure Name | Priori | Date/Time | Associated Diagnosis | Comments | | | ty | | | | + +--------+ + + + | CV CARDIAC PROCEDURE | Routin | 12/14/2019 | | Results for this | | | e | 9:45 AM | | procedure are in the | | | | PDT | | results section. | + +--------+ + + + | CV CARDIAC PROCEDURE | Routin | 12/14/2019 | | Results for this | | | e | 9:45 AM | | procedure are in the | | | | PDT | | results section. | + +--------+ + + + | CV CARDIAC PROCEDURE | Routin | 12/14/2019 | | Results for this | | | e | 9:45 AM | | procedure are in the | | | | PDT | | results section. | + +--------+ + + + documented in this encounter Results CV CARDIAC PROCEDURE (12/14/2019 9:45 AM PDT) + +-------+ + + + | Component | Value | Ref Range | Performed | Pathologist | | | | | At | Signature | + +-------+ + + + | LVEF-LVGRAM | 35 | % | [facility] | | | CARDIAC | | | | | | CATH | | | | | + +-------+ + + + + + | Specimen | + + | | + + + + ---+ | Narrative | Performed A t | + + ---+ | CARDIAC | [facility] | | CATHETERIZATION and CORONARY ANGIOGRAPHY PATIENT NAME/: Esa | | | Reese, (1945) OF | | | PROCEDURE: 12/14/2019 OUTSIDE SALES ACCOUNT MANAGER: Andrew Gamboa MD | | | PROCEDURES PERFORMED:Coronary AngiographyLeft Heart | | | CatheterizationLeft Ventriculography Indications: CHF DESCRIPTION OF | | | PROCEDURE: Informed consent was obtained from the patient, and a | | | time-out was performed to verify the patient's identification and | | | planned procedure. The patient's right wrist was then prepped and | | | draped in the usual sterile fashion, and anesthetized with 0.5 mL of | | | buffered 1% lidocaine. For arterial access modified Seldinger | | | technique was used to place a 6 Fr. sheath in the right radial artery | | | (a normal Jsese's test was performed prior to the procedure). Right | | | heart catheterization was not performed on this patient. After | | | crossing the aortic valve, left ventriculography was performed in the | | | VILLALOBOS projection. Selective coronary angiogram was then performed in | | | several sagittal and oblique projections. Apoorva Barnett, 3 DR, JR4 | | | diagnostic catheters were used for this procedure. The patient | | | received a total of 2 mg of Versed and 0 Mcg of fentanyl intravenously | | | for conscious sedation during the procedure. A total of 95 mL | | | Omnipaque 350 contrast was utilized. During procedure a total of 400 | | | mcg nitroglycerin, and 1200 mcg nicardipine were given via the radial | | | sheath, and 4000 units heparin was given intravenously. The | | | procedure had no immediate complications. At the conclusion of the | | | procedure, the sheath was removed and hemostasis obtained with a TR | | | hemostatic band. I reviewed the patient's pre-sedation assessment and | | | vital signs, supervised and directed the administration of moderate | | | sedation with continuous [id number] attendance. My intra-service | | | time was 45 minutes. See the procedure log for more details. | | | FINDINGS: Hemodynamics: Ao -91/57 mm Hg with a mean of 70 mm HgLV | | | -102/2 mm HgLVEDP -5 mm Hg Left ventriculography: The left ventricle | | | was Mildly dilated. LVEF is calculated at 30-35%. There is no | | | mitral valve regurgitation noted. Left main artery: The left main | | | artery is a large caliber vessel that bifurcates into the left | | | anterior descending artery and left circumflex artery. Left main | | | artery has is free of disease. Left anterior descending artery: The | | | left anterior descending artery is a large caliber vessel that wraps | | | around the apex and gives rise to 2 diagonal branches. The vessel has | | | mild diffuse disease. It gives rise to 3 diagonal branches. Left | | | circumflex artery: The left circumflex artery is a large caliber | | | vessel that is non dominant. The vessel has mild diffuse disease. | | | It gives rise to 3 OM branches. Right coronary artery: The right | | | coronary artery is a large caliber vessel that is dominant. The | | | vessel has mild diffuse disease. It gives rise to a PDA and | | | Posterior lateral branches. CONCLUSIONS:1. Mild coronary artery | | | disease as detailed above2. There is a right dominate circulation.3. | | | Moderately reduced LV systolic function with an EF of 30-35%4. | | | Systemic blood pressure is normal.5. There was successful hemostasis | | | with a TR hemostatic band. PLAN:1. Risk factor modification and | | | Medical management. Electronically signed by: Andrew Gamboa MD on | | | 12/14/2019 at 10:16 AM PRIMARY CARE PROVIDER:Tomasz Vu MD | | | For additional detail as to the procedures performed and the equipment | | | that was utilized, please refer to the Procedure Log. | | |FINDINGS: | | | | | |Hemodynamics: | | | | | |Ao -91/57 mm Hg with a mean of 70 mm Hg | | |LV -102/2 mm Hg | | |LVEDP -5 mm Hg | | | | | |Left ventriculography: The left ventricle was Mildly dilated. LVEF is | | |calculated at 30-35%. There is no mitral valve regurgitation noted. | | | | | |Left main artery: The left main artery is a large caliber vessel that | | |bifurcates into the left anterior descending artery and left circumflex | | |artery. Left main artery has is free of disease. | | | | | |Left anterior descending artery: The left anterior descending artery is a | | |large caliber vessel that wraps around the apex and gives rise to 2 | | |diagonal branches. The vessel has mild diffuse disease. It gives rise to | | |3 diagonal branches. | | | | | |Left circumflex artery: The left circumflex artery is a large caliber | | |vessel that is non dominant. The vessel has mild diffuse disease. It | | |gives rise to 3 OM branches. | | | | | | | | |Right coronary artery: The right coronary artery is a large caliber | | |vessel that is dominant. The vessel has mild diffuse disease. It gives | | |rise to a PDA and Posterior lateral branches. | | | | | | | | |CONCLUSIONS: | | |1. Mild coronary artery disease as detailed above | | |2. There is a right dominate circulation. | | |3. Moderately reduced LV systolic function with an EF of 30-35% | | |4. Systemic blood pressure is normal. | | |5. There was successful hemostasis with a TR hemostatic band. | | | | | | | | |PLAN: | | |1. Risk factor modification and Medical management. | | | | | | | | | | | | | | | | | | | | | | | | | | |PRIMARY CARE PROVIDER: | | |Tomasz Vu MD | | | | | | | | | | | | | | |For additional detail as to the procedures performed and the equipment | | |that was utilized, please refer to the Procedure Log. | | | | | + + ---+ + +---------+ + + | Performing | Address | City[facility] | Phone Number | | Organization | | | | + +---------+ + + | [facility] | | | | + +---------+ + + documented in this encounter Visit Diagnoses + + | Diagnosis | + + | Typical atrial flutter (HCC) Atrial flutter | + + | Acute systolic congestive heart failure (HCC) Acute systolic heart failure | + + documented in this encounter Administered Medications + +--------+---------+------+------+------+ | Medication Order | MAR | Action | Dose | Rate | Site | | | Action | Date | | | | + +--------+---------+------+------+------+ + +---+ | acetaminophen (TYLENOL) tablet | | | 650 mg 650 mg, Oral, EVERY 6 | | | HOURS PRN, Pain, Fever, Starting | | | 12/14/19 at 1006, | | | Post-op/Phase II | | + +---+ | | | + +---+ | lidocaine 1%-EPINEPHrine | | | 1:100,000 injection 5 mL 5 mL, | | | Infiltration, ONCE PRN, for | | | oozing at cardiac cath site, | | | Starting 12/14/19 at 1006, For | | | 1 dose, For continued oozing | | | after sheath removal despite | | | pressure dressing and manual | | | pressure. Inject to affected area | | | x 1 followed by 10 minutes of | | | manual compression., | | | Post-op/Phase II | | + +---+ | | | + +---+ | nitroglycerin (NITROSTAT) SL | | | tablet 0.4 mg 0.4 mg, | | | Sublingual, EVERY 5 MIN PRN, | | | Chest pain, Starting 12/14/19 | | | at 1006, May give up to 3 doses. | | | Notify physician after 2nd dose | | | given. Hold for SBP<100, | | | Post-op/Phase II | | + +---+ | | | + +---+ | ondansetron (ZOFRAN) injection | | | 4-8 mg 4-8 mg, Intravenous, | | | EVERY 6 HOURS PRN, Nausea, | | | Vomiting, Starting 12/14/19 at | | | 1006, Post-op/Phase II | | + +---+ | | | + +---+ | sodium chloride 0.9% (NS) | | | infusion at 125 mL/hr, | | | Intravenous, CONTINUOUS, Starting | | | Sat12/14/19 at 0900, For | | | procedure only, not to exceed 1 | | | liter., Pre-op | | + +---+ | | | + +---+ documented in this encounter
--- OUTSIDE RECORDS SUMMARY | ~2019-12-23 | XMS | Clinical Summary ---
Demographics + + + | Address | [address] | | | [place] [address] | + + + | Home Phone | | + + + | Preferred Language | Unknown | + + + | Marital Status | Single | + + + | Holiness Affiliation | 1041 | + + + | Race | Unknown | + + + | Ethnic Group | Unknown | + + + Author + + + | Author | [facility] | | | and [place] | + + + | Organization | [facility] | | | and [place] [...] Team Providers + +------+ + | Care Rf Technician Name | Role | Phone | + +------+ + | Tomasz Vu MD | PCP | | + +------+ + Allergies No Known Allergies Medications + + + +---------+------+------+-------+ | Medication | Sig | Dispensed | Refills | Star | End | Statu | | | | | | t | Date | s | | | | | | Date | | | + + + +---------+------+------+-------+ | UNCODED DME | Blood pressure kit | 1 each | 0 | 04/1 | | Activ | | | for home monitoring | | | 0/20 | | e | | | check BP twice a day | | | 20 | | | | | and prn | | | | | | + + + +---------+------+------+-------+ | UNCODED DME | Finger Oximeter for | 1 each | 0 | 04/1 | | Activ | | | home use check twice | | | 0/20 | | e | | | a day and prn | | | 20 | | | + + + +---------+------+------+-------+ | amiodarone | 2 tablets twice a | 100 | 0 | 04/1 | | Activ | | (PACERONE) 200 mg | day for 6 days then | tablet | | 0/20 | | e | | tablet | reduce dose to 1 | | | 20 | | | | | tablet once a day by | | | | | | | | mouth | | | | | | + + + +---------+------+------+-------+ | apixaban (ELIQUIS) | Take 1 tablet by | 60 | 0 | 04/1 | | Activ | | 5 mg | mouth 2 times daily. | tablet | | 0/20 | | e | | tabletIndications: | Indications: Atrial | | | 20 | | | | Atrial Fibrillation | Fibrillation | | | | | | + + + +---------+------+------+-------+ | lisinopril | Take 1 tablet by | 60 | 0 | 04/1 | | Activ | | (PRINIVIL, ZESTRIL) | mouth 2 times daily | tablet | | 0/20 | | e | | 5 mg tablet | (at breakfast and | | | 20 | | | | | bedtime). | | | | | | + + + +---------+------+------+-------+ | potassium chloride | Take 1 tablet by | 90 | 3 | 04/2 | | Activ | | (KLOR-CON) 10 mEq | mouth Daily. | tablet | | 3/20 | | e | | CR tablet | | | | 20 | | | + + + +---------+------+------+-------+ | furosemide (LASIX) | Take 1 tablet by | 180 | 3 | 04/2 | | Activ | | 40 mg tablet | mouth 2 times daily. | tablet | | 3/20 | | e | | | | | | 20 | | | + + + +---------+------+------+-------+ | carvedilol (COREG) | Take 1 tablet by | 180 | 3 | 04/2 | | Activ | | 3.125 mg tablet | mouth 2 times daily | tablet | | 3/20 | | e | | | (with breakfast & | | | 20 | | | | | dinner). | | | | | | + + + +---------+------+------+-------+ | atorvaSTATin | Take 1 tablet by | 90 | 3 | 04/2 | 04/2 | Activ | | (LIPITOR) 20 mg | mouth Daily. | tablet | | 3/20 | 3/20 | e | | tablet | | | | 20 | 21 | | + + + +---------+------+------+-------+ | amiodarone | 2 tablets twice a | 100 | 0 | 04/1 | 04/1 | Disco | | (PACERONE) 200 mg | day for 6 days then | tablet | | 0/20 | 0/20 | ntinu | | tablet | reduce dose to 1 | | | 20 | 20 | ed | | | tablet once a day by | | | | | (Reor | | | mouth | | | | | candy) | + + + +---------+------+------+-------+ | apixaban (ELIQUIS) | Take 1 tablet by | 60 | 0 | 04/1 | 04/1 | Disco | | 5 mg | mouth 2 times daily. | tablet | | 0/20 | 0/20 | ntinu | | tabletIndications: | Indications: Atrial | | | 20 | 20 | ed | | Atrial Fibrillation | Fibrillation | | | | | | + + + +---------+------+------+-------+ | aspirin 81 MG EC | Take 1 tablet by | 30 | 0 | 04/1 | 04/1 | Disco | | tablet | mouth Daily. | tablet | | 1/20 | 0/20 | ntinu | | | | | | 20 | 20 | ed | + + + +---------+------+------+-------+ | atorvaSTATin | Take 1 tablet by | 30 | 0 | 04/1 | 04/1 | Disco | | (LIPITOR) 20 mg | mouth nightly. | tablet | | 0/20 | 0/20 | ntinu | | tablet | | | | 20 | 20 | ed | + + + +---------+------+------+-------+ | lisinopril | Take 1 tablet by | 60 | 0 | 04/1 | 04/1 | Disco | | (PRINIVIL, ZESTRIL) | mouth 2 times daily | tablet | | 0/20 | 0/20 | ntinu | | 5 mg tablet | (at breakfast and | | | 20 | 20 | ed | | | bedtime). | | | | | | + + + +---------+------+------+-------+ | aspirin 81 MG EC | Take 1 tablet by | 30 | 0 | / | 04/2 | Disco | | tablet | mouth Daily. | tablet | | 1/20 | 4/20 | ntinu | | | | | | 20 | 20 | ed | | | | | | | | (Ther | | | | | | | | apy | | | | | | | | compl | | | | | | | | eted) | + + + +---------+------+------+-------+ | atorvaSTATin | Take 1 tablet by | 30 | 0 | 04/1 | 04/2 | Disco | | (LIPITOR) 20 mg | mouth nightly. | tablet | | 0/20 | 2/20 | ntinu | | tablet | | | | 20 | 20 | ed | | | | | | | | (Susan | | | | | | | | ent | | | | | | | | Not | | | | | | | | Takin | | | | | | | | g) | + + + +---------+------+------+-------+ Active Problems + + + | Problem | Noted Date | + + + | Atrial flutter | 12/01/2019 | + + + + + | Last Assessment & Plan: I discussed management options with | | the patient and his daughter, including continuation of | | amiodarone and medical management, or ablation. The patient | | states that he wishes to have more definitive management with the | | hope of getting off amiodarone in the future, which I believe is | | reasonable. Plan for atrial flutter ablation. Risks, benefits, | | alternatives were discussed. Transesophageal echo will not be | | necessary. Hold Eliquis the morning of the procedure for device | | implant as detailed below. | + + + + + | CHF (congestive heart failure) | 12/01/2019 | + + + + + | Overview: Left heart catheterization on 12/14/19 shows mild | | coronary artery disease as detailed above, there is a right | | dominate circulation, moderately reduced LV systolic function | | with an EF of 30-35%, systemic blood pressure is normal, there | | was successful hemostasis with a TR hemostatic band. Last | | Assessment & Plan: Given the patient's unexplained syncope in | | the presence of left bundle branch block with significant | | cardiomyopathy, biventricular ICD would be recommended. I | | discussed this option in depth with the patient and his daughter, | | and they wish to proceed. We will plan for biventricular ICD | | implant at the time of atrial flutter ablation. Continue | | maximally tolerated medical management as per the patient's | | bunch maker, Dr. Gamboa. The patient has not been on | | maximally tolerated medical therapy for 3 months, but given his | | unexplained syncope, device implant would be recommended. | + + + + + | Methamphetamine use | 12/01/2019 | + + + + + | Last Assessment & Plan: The patient is currently abstaining | | from methamphetamine. Strongly recommend avoid methamphetamine. | + + Encounters +--------+ + + + + | Date | Type | Specialty | Care Team | Description | +--------+ + + + + | 12/19/ | Telephone | Cardiology | Karla Becerra, | Dysuria | | 2020 | | | CARD CLOTHIER | | +--------+ + + + + | 12/17/ | Virtual | Cardiology | Colin Diallo, | Typical atrial | | 2019 | Office | | MD | flutter (HCC); Acute | | | Visit | | | systolic congestive | | | | | | heart failure | | | | | | (HCC); | | | | | | Methamphetamine use | | | | | | (HCC) | +--------+ + + + + | 12/16/ | Virtual | Cardiology | Andrew Gamboa, | Acute systolic | | 2019 | Office | | MD | congestive heart | | | Visit | | | failure (HCC) | | | | | | (Primary Dx) | +--------+ + + + + | 12/15/ | Virtual | Cardiology | Andrew Gamboa, | Typical atrial | | 2019 | Office | | MD | flutter ([facility]) | | | Visit | | | (Primary Dx) | +--------+ + + + + | 12/15/ | Telephone | Cardiology | Andrew Gamboa, | Other (appointment) | | 2019 | | | MD | | +--------+ + + + + | 12/14/ | Telephone | Cardiology | Colin Diallo, | Appointment (Virtual | | 2019 | | | MD | Facetime) | +--------+ + + + + | 12/13/ | Surgery | Radiology | Andrew Gamboa, | CV LHC | | 2019 | | | MD | | +--------+ + + + + | 12/13/ | Hospital | Radiology | Andrew Gamboa, | Typical atrial | 2019 | Encounter | | MD | flutter (HCC); Acute | | | | | | systolic congestive | | | | | | heart failure (HCC) | +--------+ + + + + | 12/06/ | Telephone | Cardiology | Andrew Gamboa, | Other (plan of care) | | 2019 | | | MD | | +--------+ + + + + | 12/03/ | Imaging | Radiology | Lisa, | | | 2019 | Exam | | MD Singh | | +--------+ + + + + | 12/03/ | Hospital | Rehabilitation | Stephanie Ashby PT | | | 2019 | Encounter | | | | +--------+ + + + + | 12/03/ | Telephone | Cardiology | Andrew Gamboa, | Other (Order for | | 2019 | | | | Shine bah sent) | +--------+ + + + + | 12/02/ | Imaging | Radiology | Lisa, | | | 2019 | Exam | | MD Singh | | +--------+ + + + + | 12/02/ | Telephone | Cardiology | Colin Diallo, | Appointment | | 2019 | | | MD | (Consent) | +--------+ + + + + | 12/01/ | Anesthesia | Radiology | Kem Kumar | | | 2019 | Event | | MD En [address] | | | | | | MD Conchis | | +--------+ + + + + | 12/01/ | Orders Only | Cardiology | Andrew Gamboa, | Typical atrial | | 2019 | | | MD | flutter (HCC) | | | | | | (Primary Dx) | +--------+ + + + + | 12/01/ | Orders Only | | Ana Nino, | Atrial flutter, | | 2019 | | | RN | unspecified type | | | | | | (HCC) | +--------+ + + + + | 12/01/ | Orders Only | Cardiology | Andrew Gamboa, | Atrial flutter, | | 2019 | | | MD | unspecified type | | | | | | ([facility]) (Primary Dx) | +--------+ + + + + | 11/30/ | Hospital | | Ovidio Ansari, | Atrial flutter, | | 2019 - | Encounter | | MD Heath Ruiz, | unspecified type | | | | | MD | ([facility]); Typical | | 12/03/ | | | | atrial flutter | | 2019 | | | | ([facility]); Acute | | | | | | systolic congestive | | | | | | heart failure ([facility]) | +--------+ + + + + | 11/30/ | Intake | | | N/A | | 2019 | | | | | +--------+ + + + + from Last 3 Months Immunizations + + + + | Name | Administration Dates | Next Due | + + + + | INFLUENZA PF | 09/10/2019 | | | QUAD(PED/ADOL/ADULT) | | | | ,PSKT or VIAL | | | + + + + | TDAP, (ADOL/ADULT) | 09/10/2019 | | + + + + Family History + + +------+ + | Medical History | Relation | Name | Comments | + + +------+ + | Heart disease | Brother | | | + + +------+ + | Heart disease | Father | | | + + +------+ + | Heart disease | Mother | | | + + +------+ + + +------+ + + | Relation | Name | Status | Comments | + +------+ + + | Brother | | | | + +------+ + + | Father | | | | + +------+ + + | Mother | | | | + +------+ + + Social History + + + [...] recent travel history available. | + + Last Filed Vital Signs + + + + + | Vital Sign | Reading | Time Taken | Comments | + + + + + | Blood Pressure | 139/69 | 12/17/2019 3:02 PM | pt took blood | | | | PDT | pressure with home | | | | | monitor | + + + + + | Pulse | 91 | 12/17/2019 3:02 PM | | | | | PDT | [...] + + + + | Weight | 74.6 kg (164 lb 8 | 12/17/2019 3:02 PM | | | | oz) | PDT | | + + + + + | Height | 177.8 cm (5' 10") | 12/18/2019 10:15 AM | | | | | PDT | | + + + + + | Body Mass Index | 23.6 | 12/17/2019 3:02 PM | | | | | PDT | | + + + + + Plan of Treatment +--------+ + + + + | Date | Type | Specialty | Care Team | Description | +--------+ + + + + | 12/30/ | Hospital | Radiology | Colin Diallo, | Cardiomyopathy, | | 2019 | Encounter | | [address] | unspecified type | | | | | [address] [place], | ([facility]); Syncope, | | | | | [place] [address] | unspecified syncope | | | | | [phone] | type; Atrial | | | | | | flutter, unspecified | | | | | | type ([facility]) | +--------+ + + + + | 12/30/ | Surgery | Radiology | Colin Diallo, | CV EP ABLATION AF | | 2019 | | | [address] | | | | | | [address] [place], | | | | | | [place] [address] | | | | | | [phone] | | | | | | | | +--------+ + + + + | 01/14/ | Virtual | Cardiology | Andrew Gamboa, | | | 2019 | Office | | MD Richie Leone | | | | Visit | | [place], | | | | | | [place] [address] | | | | | | [phone] | | | | | | | | +--------+ + + + + + + + + + | Health Maintenance | Due Date | Last Done | Comments | + + + + + | Hepatitis C | | | | | Screening | 6 | | | + + + + + | Colorectal Cancer | | | | | Screening | 6 | | | | (Colonoscopy) | | | | + + + + + | Vaccine: Zoster (1 | | | | | of 2) | 6 | | | + + + + + | Vaccine: | | | | | Pneumococcal 65+ (1 | 1 | | | | of 2 - PCV13) | | | | + + + + + | Adult Annual | | | | | Wellness Visit | 0 | | | + + + + + | Vaccine: | | 09/10/2019 | | | Dtap/Tdap/Td (2 - | 0 | | | | Td) | | | | + + + + + | Vaccine: Influenza | Completed | 09/10/2019 | | + + + + + Procedures + +--------+ + + + | [...] | + +--------+ + + + | B TYPE NATRIURETIC | Routin | 12/04/2019 | | Results for this | | PEPTIDE | e | 3:40 AM | | procedure are in the | | | | PDT | | results section. | + +--------+ + + + | MAGNESIUM | Routin | 12/04/2019 | | Results for this | | | e | 3:40 AM | | procedure are in the | | | | PDT | | results section. | + +--------+ + + + | BASIC METABOLIC | Routin | 12/04/2019 | | Results for this | | PANEL | e | 3:40 AM | | procedure are in the | | | | PDT | | results section. | + +--------+ + + + | NM NUCLEAR STRESS | Routin | 12/03/2019 | | Results for this | | TEST (PHARMACOLOGIC | e | 11:30 AM | | procedure are in the | | - VASODILATOR) | | PDT | | results section. | + +--------+ + + + | B TYPE NATRIURETIC | Routin | 12/03/2019 | | Results for this | | PEPTIDE | e | 3:30 AM | | procedure are in the | | | | PDT | | results section. | + +--------+ + + + | MAGNESIUM | Routin | 12/03/2019 | | Results for this | | | e | 3:30 AM | | procedure are in the | | | | PDT | | results section. | + +--------+ + + + | BASIC METABOLIC | Routin | 12/03/2019 | | Results for this | | PANEL | e | 3:30 AM | | procedure are in the | | | | PDT | | results section. | + +--------+ + + + | CBC NO DIFFERENTIAL | Routin | 12/03/2019 | | Results for this | | | e | 3:30 AM | | procedure are in the | | | | PDT | | results section. | + +--------+ + + + | ECG 12 LEAD | Routin | 12/02/2019 | | Results for this | | | e | 2:50 PM | | procedure are in the | | | | PDT | | results section. | + +--------+ + + + | EP CARDIOVERSION | Routin | 12/02/2019 | Atrial flutter, | Results for this | | | e | 1:45 PM | unspecified type | procedure are in the | | | | PDT | ([facility]) | results section. | + +--------+ + + + | ECHO TRANSESOPHAGEAL | Routin | 12/02/2019 | Atrial flutter, | Results for this | | (ANDI) | e | 1:31 PM | unspecified type | procedure are in the | | | | PDT | (HCC) | results section. | + +--------+ + + + | ECG 12 LEAD | Routin | 12/02/2019 | | Results for this | | | e | 12:34 PM | | procedure are in the | | | | PDT | | results section. | + +--------+ + + + | ECHO COMPLETE W | Routin | 12/02/2019 | | Results for this | | CONTRAST | e | 8:01 AM | | procedure are in the | | | | PDT | | results section. | + +--------+ + + + | ECG 12 LEAD | STAT | 12/02/2019 | | Results for this | | | | 5:44 AM | | procedure are in the | | | | PDT | | results section. | + +--------+ + + + | TROPONIN I | Add-On | 12/02/2019 | | Results for this | | | | 3:41 AM | | procedure are in the | | | | PDT | | results section. | + +--------+ + + + | B TYPE NATRIURETIC | Add-On | 12/02/2019 | | Results for this | | PEPTIDE | | 3:41 AM | | procedure are in the | | | | PDT | | results section. | + +--------+ + + + | MAGNESIUM | Routin | 12/02/2019 | | Results for this | | | e | 3:41 AM | | procedure are in the | | | | PDT | | results section. | + +--------+ + + + | BASIC METABOLIC | Routin | 12/02/2019 | | Results for this | | PANEL | e | 3:41 AM | | procedure are in the | | | | PDT | | results section. | + +--------+ + + + | CBC NO DIFFERENTIAL | Routin | 12/02/2019 | | Results for this | | | e | 3:41 AM | | procedure are in the | | | | PDT | | results section. | + +--------+ + + + | HEMOGLOBIN A1C | Routin | 12/01/2019 | | Results for this | | | e | 7:40 PM | | procedure are in the | | | | PDT | | results section. | + +--------+ + + + | MAGNESIUM | STAT | 12/01/2019 | | Results for this | | | | 7:40 PM | | procedure are in the | | | | PDT | | results section. | + +--------+ + + + | RENAL FUNCTION PANEL | STAT | 12/01/2019 | | Results for this | | | | 7:40 PM | | procedure are in the | | | | PDT | | results section. | + +--------+ + + + | CBC WITH | STAT | 12/01/2019 | | Results for this | | DIFFERENTIAL | | 7:40 PM | | procedure are in the | | | | PDT | | results section. | + +--------+ + + + | CULTURE, MRSA | Routin | 12/01/2019 | | Results for this | | | e | 7:03 PM | | procedure are in the | | | | PDT | | results section. | + +--------+ + + + | CT ANGIOGRAM CHEST W | Routin | 12/01/2019 | | Results for this | | CONTRAST | e | 2:00 PM | | procedure are in the [...] section. | + +--------+ + + + from Last 3 Months Results CV CARDIAC PROCEDURE (12/14/2019 9:45 AM [...] (1945) OF | | | PROCEDURE: 12/14/2019 PREPARATION DEPARTMENT SUPERVISOR: Andrew Gamboa MD | | | PROCEDURES [...] radial artery | | | (a normal Jesse's test was performed prior to the procedure). Right | | | heart catheterization was not performed on this patient. After | | | crossing the aortic valve, left ventriculography was performed in the | | | VILLALOBOS projection. Selective coronary angiogram was then performed in | | | several sagittal and oblique projections. Apoorva Barnett, 3 DRC, JR4 | | | diagnostic catheters were [...] moderate | | | sedation with continuous przz-te-smiz attendance. My intra-service | | | time [...] | | | + +---------+ + + B Type Natriuretic Peptide (12/04/2019 3:40 AM PDT)Only the most recent of 3 results withi n the time period is included. + + + + + + | Component | Value | Ref Range | Performed | Pathologist | | | | | At | Signature | + + + + + + | BNP | 290 (H)Comment: New | <100 pg/mL | [facility] | | | | method in use as of | | [facility] | | | | October 22, 2018. Check | | MEDICAL | | | | reference range for | | CENTER - | | | | changes.Some analytes | | LABORATORY | | | | show significant | | | | | | variation from the | | | | | | previous method.It may | | | | | | be necessary to set a | | | | | | new baseline for this | | | | | | analyte. | | | | + + + + + + + + | Specimen | + + | Blood | + + + + + + + | Performing | Address | City/State/Zipcode | Phone Number | | Organization | | | | + + + + + | [facility] | [address] | [place] | [phone] | | [facility] | | [address] | | | - LABORATORY | | | | + + + + + Magnesium (12/04/2019 3:40 AM PDT)Only the most recent of 4 results within the time period is included. + +-------+ + + + | Component | Value | Ref Range | Performed | Pathologist | | | | | At | Signature | + +-------+ + + + | Magnesium | 1.8 | 1.6 - 2.6 mg/dL | [facility] | | | | | | [facility] | | | | | | MEDICAL | | | | | | CENTER - | | | | | | LABORATORY | | + +-------+ + + + + + | Specimen | + + | Blood | + + + + + + + | Performing | Address | City/State/Zipcode | Phone Number | | Organization | | | | + + + + + | [facility] | [address] | [place] | [phone] | | [facility] | | [address] | | | - LABORATORY | | | | + + + + + Basic Metabolic Panel (12/04/2019 3:40 AM PDT)Only the most recent of 3 results within the time period is included. + + + + + + | Component | Value | Ref Range | Performed | Pathologist | | | | | At | Signature | + + + + + + | Na | 134 (L) | 136 - 145 | [facility] | | | | | mmol/L | [facility] | | | | | | MEDICAL | | | | | | CENTER - | | | | | | LABORATORY | | + + + + + + | K | 3.9 | 3.4 - 5.1 | [facility] | | | | | mmol/L | [facility] | | | | | | MEDICAL | | | | | | CENTER - | | | | | | LABORATORY | | + + + + + + | Cl | 100 | 98 - 107 mmol/L | [facility] | | | | | | [facility] | | | | | | MEDICAL | | | | | | CENTER - | | | | | | LABORATORY | | + + + + + + | CO2 | 27 | 20 - 31 mmol/L | [facility] | | | | | | [facility] | | | | | | MEDICAL | | | | | | CENTER - | | | | | | LABORATORY | | + + + + + + | Anion Gap | 7 | 3 - 16 mmol/L | [facility] | | | | | | [facility] | | | | | | MEDICAL | | | | | | CENTER - | | | | | | LABORATORY | | + + + + + + | Glucose | 97 | 60 - 106 mg/dL | [facility] | | | | | | [facility] | | | | | | MEDICAL | | | | | | CENTER - | | | | | | LABORATORY | | + + + + + + | BUN | 33 (H) | 9 - 23 mg/dL | [facility] | | | | | | [facility] | | | | | | MEDICAL | | | | | | CENTER - | | | | | | LABORATORY | | + + + + + + | Creatinine | 0.93 | 0.70 - 1.30 | [facility] | | | | | mg/dL | [facility] | | | | | | MEDICAL | | | | | | CENTER - | | | | | | LABORATORY | | + + + + + + | eGFR if not | >60Comment: GLOMERULAR | >=60 | [facility] | | | | FILTRATION | mL/min/1.73m2 | [facility] | | | [place] | RATE,ESTIMATED | | MEDICAL | | | | mL/min/1.83x1Ixri than | | CENTER - | | | | 60 Chronic kidney | | LABORATORY | | | | disease,if found over a | | | | | | 3-month period.Less than | | | | | | 15 Kidney failureFor | | | | | | | | | | | | Americans,multiply the | | | | | | calculated GFR by 1.21. | | | | | | | | | | + + + + + + | Calcium | 8.1 (L) | 8.7 - 10.4 | [facility] | | | | | mg/dL | [facility] | | | | | | MEDICAL | | | | | | CENTER - | | | | | | LABORATORY | | + + + + + + | BUN/Creatin | 35.5 | | [facility] | | | ine Ratio | | | [facility] | | | | | | MEDICAL | | | | | | CENTER - | | | | | | LABORATORY | | + + + + + + + + | Specimen | + + | Blood | + + + + + + + | Performing | Address | City/State/Zipcode | Phone Number | | Organization | | | | + + + + + | [facility] | [address] | [place], [place] | [phone] | | [facility] | | [address] | | | - LABORATORY | | | | + + + + + NM Nuclear Stress Test (Vasodilator) (12/03/2019 11:30 AM PDT) + +--------+ + + + | Component | Value | Ref Range | Performed | Pathologist | | | | | At | Signature | + +--------+ + + + | BASELINE | 87 | bpm | [facility] | | | HEART RATE | | | | | + +--------+ + + + | BASELINE | 122/84 | mmHg | [facility] | | | BLOOD | | | | | | PRESSURE | | | | | + +--------+ + + + | PEAK HEART | 88 | | [facility] | | | RATE | | | | | + +--------+ + + + | PEAK BLOOD | 122/84 | mmHG | [facility] | | | PRESSURE | | | | | + +--------+ + + + | Target HR | 125 | | [facility] | | + +--------+ + + + | Percent HR | 60 | | [facility] | | + +--------+ + + + | Max | 147 | | [facility] | | | Predicted | | | | | | HR | | | | | + +--------+ + + + | LVEF-SPECT | 33 | % | [facility] | | | NUCLEAR | | | | | | STRESS/VIAB | | | | | | ILITY | | | | | + +--------+ + + + | ST | 0.0 | mm | [facility] | | | Elevation | | | | | | (mm) | | | | | + +--------+ + + + + + | Specimen | + + | | + + + + + | Narrative | Performed At | + + + | 1. | [facility] | | Persantine EKG is nondiagnostic due to abnormal underlying EKG.2. | | | Abnormal Persantine sestamibi myocardial perfusion imaging study | | | with a medium size, partially reversible defect of the inferior and | | | inferoseptal region. Findings suggest a potential partial myocardial | | | ischemia of the right coronary territory. There is a moderate | | | global hypokinesis of the left ventricle. Overall, left ventricular | | | systolic function is moderately decreased. LVEF by gated SPECT at | | | 33%. | | + + + + +---------+ + + | Performing | Address | City/State/Zipcode | Phone Number | | Organization | | | | + +---------+ + + | [facility] | | | | + +---------+ + + CBC no Differential (12/03/2019 3:30 AM PDT)Only the most recent of 2 results within the period is included. + + + + + + | Component | Value | Ref Range | Performed | Pathologist | | | | | At | Signature | + + + + + + | WBC | 11.7 (H) | 4.0 - 11.0 K/uL | [facility] | | | | | | [facility] | | | | | [facility] | | | | [facility] - | | | | | | [facility]ORATORY | | + + + + + + | RBC | 4.36 | 4.30 - 5.70 | [facility] | | | | | M/uL | [facility] | | [facility] | | | [facility] | | | | | | [facility] - | | | | | | LABORATORY | | + + + + + + | Hemoglobin | 12.8 (L) | 13.5 - 18.0 | [facility] | | | | | g/dL | [facility] | | | | | | [facility] | | | | | | [facility] - | | | | | | LABORATORY | | + + + + + + | Hematocrit | 37.5 (L) | 40.0 - 51.0 % | [facility] | | | | | | MEDICAL | | | | | | CENTER - | | | | | | LABORATORY | | + + + + + + | MCV | 86.0 | 83.0 - 101.0 fL | [facility] | | | | | | [facility] | | | | | | MEDICAL | | | | | | CENTER - | | | | | | LABORATORY | | + + + + + + | MCH | 29.4 | 28.0 - 35.0 pg | [facility] | | | | | | [facility] | | | | | | MEDICAL | | | | | | CENTER - | | | | | | LABORATORY | | + + + + + + | MCHC | 34.1 | 32.0 - 36.0 | [facility] | | | | | g/dL | [facility] | | | | | | MEDICAL | | | | | | CENTER - | | | | | | LABORATORY | | + + + + + + | RDW-CV | 14.5 | <15.0 % | [facility] | | | | | | [facility] | | | | | | MEDICAL | | | | | | CENTER - | | | | | | LABORATORY | | + + + + + + | RDW-SD | 44.6 | 35.1 - 46.3 fL | [facility] | | | | | | [facility] | | | | | | MEDICAL | | | | | | CENTER - | | | | | | LABORATORY | | + + + + + + | Platelet | 350 | 140 - 440 K/uL | [facility] | | | Count | | | [facility] | | | | | | MEDICAL | | | | | | CENTER - | | | | | | LABORATORY | | + + + + + + | MPV | 9.5 | 6.5 - 12.4 fL | [facility] | | | | | | [facility] | | | | | | MEDICAL | | | | | | CENTER - | | | | | | LABORATORY | | + + + + + + | % nRBC | 0 | 0 - 2 per 100 | [facility] | | | | | WBCs | [facility] | | | | | | MEDICAL | | | | | | CENTER - | | | | | | LABORATORY | | + + + + + + | Absolute | 0.00 | 0.00 - 0.01 | [facility] | | | nRBC | | K/uL | [facility] | | | | | | MEDICAL | | | | | | CENTER - | | | | | | LABORATORY | | + + + + + + + + | Specimen | + + | Blood | + + + + + + + | Performing | Address | City/State/Zipcode | Phone Number | | Organization | | | | + + + + + | [facility] | [address] | [place] | [phone] | | [facility] | | [address] | | | - LABORATORY | | | | + + + + + ECG 12 lead (12/02/2019 2:50 PM PDT)Only the most recent of 3 results within the time mi od is included. + + + + + + | Component | Value | Ref Range | Performed | Pathologist | | | | | At | Signature | + + + + + + | VENTRICULAR | 80 | BPM | [facility] | | | RATE EKG | | | | | + + + + + + | ATRIAL RATE | 80 | BPM | [facility] | | + + + + + + | P-R | 114 | ms | [facility] | | | INTERVAL | | | | | + + + + + + | QRS | 146 | ms | [facility] | | | DURATION | | | | | + + + + + + | Q-T | 424 | ms | [facility] | | | INTERVAL | | | | | + + + + + + | Q-T | 489 | ms | [facility] | | | INTERVAL | | | | | | (CORRECTED) | | | | | + + + + + + | QRS AXIS | 25 | degrees | [facility] | | + + + + + + | T AXIS | 176 | degrees | [facility] | | + + + + + + | INTERPRETAT | Ectopic atrial rhythm | | [facility] | | | ION TEXT | with short PRLeft bundle | | | | | | branch blockAbnormal | | | | | | ECGWhen compared with | | | | | | ECG of 02-DEC-2019 | | | | | | 12:34, | | | | | | (Unconfirmed)Sinus | | | | | | rhythm has replaced | | | | | | atrial flutterVent. rate | | | | | | has decreased BY 65 | | | | | | BPMConfirmed by NAYANA | | | | | | HEIDI EPPERSON ([id number]) on | | | | | | 12/03/2019 5:35:43 AM | | | | + + + + + + + + | Specimen | + + | | + + + + + | Narrative | Performed At | + + + | | | + + + + +---------+ + + | Performing | Address | City/State/Zipcode | Phone Number | | Organization | | | | + +---------+ + + | [facility] | | | | + +---------+ + + EP CARDIOVERSION (12/02/2019 1:45 PM PDT) + + + | Narrative | Performed At | + + + | Andrew Gamboa MD 12/02/2019 1:45 PM CARDIOVERSION | [facility] | | REPORT PATIENT NAME/: Esa Leigh, (1945) | [facility] | | DATE OF PROCEDURE: 12/02/2019 | [facility] | | PREPARATION DEPARTMENT SUPERVISOR: Andrew Gamboa MD Procedures | - IMAGING [...] ST. | [address] | [place] | [phone] | | [facility] | | [address] | | | - IMAGING | | [...] | | | + +---------+ + + ECHO Complete w Contrast (12/02/2019 8:01 AM PDT) + + + + + + | Component | Value | Ref Range | Performed | Pathologist | | | | | At | Signature | + + + + + + | Vitals | 177.8 | | [facility] | | | Height | | | | | + + + + + + | Vitals | 71.40 | | [facility] | | | Weight | | | | | + + + + + + | LVIDd | 4.14 | cm | [facility] | | + + + + + + | FS | 15 | % | [facility] | | + + + + + + | LA volume | 81.71 | mL | [facility] | | + + + + + + | Ascending | 4.4 | cm | [facility] | | | aorta | | | | | + + + + + + | Aortic arch | 4.05 | cm | [facility] | | + + + + + + | AV | 351.45 | msec | [facility] | | | regurgitati | | | | | | on pressure | | | | | | 1/2 time | | | | | + + + + + + | IVRT | 190.31 | msec | [facility] | | + + + + + + | LVOT peak | 92.83 | cm/s | [facility] | | | reinaldo | | | | | + + + + + + | AV peak reinaldo | 125.17 | cm/s | [facility] | | + + + + + + | MR max reinaldo | 488 | cm/s | [facility] | | + + + + + + | AV peak | 6.27 | mmHg | [facility] | | | gradient | | | | | + + + + + + | LA Volume | 43 | mL/m2 | [facility] | | | Index | | | | | + + + + + + | AV LVOT | 3.55 | mmHg | [facility] | | | Peak | | | | | | Gradient | | | | | + + + + + + | TR Peak | 26 | mmHg | [facility] | | | Gradient | | | | | + + + + + + | TR Velocity | 252.66 | cm | [facility] | | + + + + + + | LV | 10.74 | cm | [facility] | | | Diastolic | | | | | | Length 4C | | | | | + + + + + + | LV | 35 | % | [facility] | | | Posadas's | | | | | | Biplane EF | | | | | + + + + + + | LV ED | 157.59 | ml | [facility] | | | Volume | | | | | | (Posadas's) | | | | | + + + + + + | LV ED | 84 | ml/m2 | [facility] | | | Volume | | | | | | Index | | | | | + + + + + + | LV ES | 101.5 | ml | [facility] | | | Volume | | | | | + + + + + + | MV | 419.56 | cm/s2 | [facility] | | | Deceleratio | | | | | | n Pike | | | | | + + + + + + | MV | 133.32 | msec | [facility] | | | Deceleratio | | | | | | n Time | | | | | + + + + + + | MV E/A | 1.32 | | [facility] | | | Ratio | | | | | + + + + + + | MV Peak | 42.35 | cm/s | [facility] | | | A-Wave | | | | | + + + + + + | MV Peak | 55.94 | cm/s | [facility] | | | E-Wave | | | | | + + + + + + | AV | 289.87 | cm/s2 | [facility] | | | Deceleratio | | | | | | n Pike | | | | | + + + + + + | AV | 1,211.89 | msec | [facility] | | | Deceleratio | | | | | | n Time | | | | | + + + + + + | RA Area | 25.72 | cm2 | [facility] | | + + + + + + | LA/Aorta | 1.04 | | [facility] | | | Ratio | | | | | + + + + + + | LA Area | 21.15 | cm2 | [facility] | | + + + + + + | LV ES | 54 | ml/m2 | [facility] | | | Volume | | | | | | Index | | | | | + + + + + + | Aortic Root | 4.43 | cm | [facility] | | | Diameter | | | | | + + + + + + | IVS | 1.33 | cm | [facility] | | | Diastolic | | | | | | Thickness | | | | | | MM | | | | | + + + + + + | LVPW | 1.3 | cm | [facility] | | | Diastolic | | | | | | Thickness | | | | | | MM | | | | | + + + + + + | IVS | 1.47 | cm | [facility] | | | Systolic | | | | | | Thickness | | | | | | MM | | | | | + + + + + + | LV Systolic | 3.52 | cm | [facility] | | | Diameter | | | | | | MM | | | | | + + + + + + | LVPW | 1.68 | cm | [facility] | | | Systolic | | | | | | Thickness | | | | | | MM | | | | | + + + + + + | AV Cusp | 2.08 | cm | [facility] | | | Seperation | | | | | | MM | | | | | + + + + + + | LA Systolic | 4.6 | cm | [facility] | | | Diameter | | | | | | MM | | | | | + + + + + + | TAPSE | 1.5 | cm | [facility] | | + + + + + + | LVEF-TTE | 35 | % | [facility] | | | TRANSTHORAC | | | | | | IC ECHO | | | | | + + + + + + | RA PRESSURE | 3 | mmHg | [facility] | | + + + + + + | RVSP | 29 | mmHg | [facility] | | | Estimated | | | | | + + + + + + + + | Specimen | + + | | + + + + | Addenda | + + | Addendum by Andrew Gamboa MD on 12/02/2019 10:05 AM 1. Moderate biatrial | | dilatation. 2. Normal left ventricular size with a mild concentric left ventricular | | hypertrophy. There is a moderate global hypokinesis of the left ventricle. | | Overall, left ventricular systolic function is moderately decreased. LVEF is 30 to | | 35%. 3. Normal right ventricular size, wall thickness and motion. 4. Mild | | eccentric aortic valve insufficiency. 5. Mild mitral valve regurgitation. 6. Mild | | tricuspid valve regurgitation. 7. Normal right-sided pressure. 8. Normal IVC with | | a normal respiratory collapse. 9. Mild aortic root dilatation measuring 4.4 cm in | | diameter. 10. Small Loculated apical pericardial effusion. | + + | Addendum by Andrew Gamboa MD on 12/02/2019 10:01 AM 1. Moderate biatrial | | dilatation. 2. Normal left ventricular size with a mild concentric left ventricular | | hypertrophy. There is a moderate global hypokinesis of the left ventricle. | | Overall, left ventricular systolic function is moderately decreased. LVEF is 30 to | | 35%. 3. Normal right ventricular size, wall thickness and motion. 4. Mild | | eccentric aortic valve insufficiency. 5. Mild mitral valve regurgitation. 6. Mild | | tricuspid valve regurgitation. 7. Normal right-sided pressure. 8. Normal IVC with | | a normal respiratory collapse. 9. Mild aortic root dilatation measuring 4.4 cm in | | diameter. | + + + + + | Narrative | Performed At | + + + | 1. Moderate | [facility] | | biatrial dilatation.2. Normal left ventricular size with a mild | | | concentric left ventricular hypertrophy. There is a moderate global | | | hypokinesis of the left ventricle. Overall, left ventricular | | | systolic function is moderately decreased. LVEF is 30 to 35%.3. | | | Normal right ventricular size, wall thickness and motion.4. Mild | | | eccentric aortic valve insufficiency.5. Mild mitral valve | | | regurgitation.6. Mild tricuspid valve regurgitation.7. Normal | | | right-sided pressure. 8. Normal IVC with a normal respiratory | | | collapse. | | |8. Normal IVC with a normal respiratory collapse. | | + + + + +---------+ + + | Performing | Address | City/State/Zipcode | Phone Number | | Organization | | | | + +---------+ + + | [facility] | | | | + +---------+ + + Troponin I (12/02/2019 3:41 AM PDT) + + + + + + | Component | Value | Ref Range | Performed | Pathologist | | | | | At | Signature | + + + + + + | Troponin I | 0.03Comment: | <0.06 ng/mL | [facility] | | | | Comment:Reference | | [facility] | | | | Ranges: 0.00-0.06 = | | MEDICAL | | | | NORMAL >0.06 = | | CENTER - | | | | SUSPICIOUS FOR | | LABORATORY | | | | MYOCARDIAL DAMAGE NOTE: | | | | | | Values greater than | | | | | | 0.78 ng/mL have been | | | | | | shown to be strongly | | | | | | associated with acute | | | | | | myocardial infarction. | | | | | | The [employer] | | | | | | Cardiology (ACC) | | | | | | recommends a decision | | | | | | limit of 0.06 ng/mL for | | | | | | this assay. Results | | | | | | greater than 0.06 can | | | | | | reflect a pre-infarct | | | | | | acute coronary syndrome, | | | | | | but can also reflect | | | | | | myocardial necrosis or | | | | | | injury that is not due | | | | | | to coronary artery | | | | | | disease. Some of these | | | | | | causes are sepsis, | | | | | | hypocolemia, atrial | | | | | | fibrillation, heart | | | | | | failure, pulmonary | | | | | | embolism, myocarditis, | | | | | | myocardial contusion, | | | | | | and renal failure. The | | | | | | diagnosis of myocardial | | | | | | infarction should be | | | | | | based on a combination | | | | | | of the patient's | | | | | | clinical presentation | | | | | | and the clinical | | | | | | laboratory test results | | | | | | (especially serial | | | | | | troponin levels). | | | | + + + + + + + + | Specimen | + + | Blood | + + + + + + + | Performing | Address | City/State/Zipcode | Phone Number | | Organization | | | | + + + + + | [facility] | [address] | [place] | [phone] | | [facility] | | [address] | | | - LABORATORY | | | | + + + + + CBC with Differential (12/01/2019 7:40 PM PDT) + + + + + + | Component | Value | Ref Range | Performed | Pathologist | | | | | At | Signature | + + + + + + | WBC | 11.5 (H) | 4.0 - 11.0 K/uL | [facility] | | | | | | [facility] | | | | | | MEDICAL | | | | | | CENTER - | | | | | | LABORATORY | | + + + + + + | RBC | 4.88 | 4.30 - 5.70 | [facility] | | | | | M/uL | [facility] | | | | | | MEDICAL | | | | | | CENTER - | | | | | | LABORATORY | | + + + + + + | Hemoglobin | 14.4 | 13.5 - 18.0 | [facility] | | | | | g/dL | [facility] | | | | | | MEDICAL | | | | | | CENTER - | | | | | | LABORATORY | | + + + + + + | Hematocrit | 41.9 | 40.0 - 51.0 % | [facility] | | | | | | [facility] | | | | | | MEDICAL | | | | | | CENTER - | | | | | | LABORATORY | | + + + + + + | MCV | 85.9 | 83.0 - 101.0 fL | [facility] | | | | | | [facility] | | | | | | MEDICAL | | | | | | CENTER - | | | | | | LABORATORY | | + + + + + + | MCH | 29.5 | 28.0 - 35.0 pg | [facility] | | | | | | [facility] | | | | | | MEDICAL | | | | | | CENTER - | | | | | | LABORATORY | | + + + + + + | MCHC | 34.4 | 32.0 - 36.0 | [facility] | | | | | g/dL | [facility] | | | | | | MEDICAL | | | | | | CENTER - | | | | | | LABORATORY | | + + + + + + | RDW-CV | 14.0 | <15.0 % | [facility] | | | | | | [facility] | | | | | | MEDICAL | | | | | | CENTER - | | | | | | LABORATORY | | + + + + + + | RDW-SD | 43.8 | 35.1 - 46.3 fL | [facility] | | | | | | [facility] | | | | | | MEDICAL | | | | | | CENTER - | | | | | | LABORATORY | | + + + + + + | Platelet | 364 | 140 - 440 K/uL | [facility] | | | Count | | | [facility] | | | | | | MEDICAL | | | | | | CENTER - | | | | | | LABORATORY | | + + + + + + | MPV | 9.5 | 6.5 - 12.4 fL | [facility] | | | | | | [facility] | | | | | | MEDICAL | | | | | | CENTER - | | | | | | LABORATORY | | + + + + + + | % | 85.2 (H) | 45.0 - 82.0 % | [facility] | | | Neutrophils | | | [facility] | | | | | | MEDICAL | | | | | | CENTER - | | | | | | LABORATORY | | + + + + + + | % | 9.5 (L) | 20.0 - 45.0 % | [facility] | | | Lymphocytes | | | [facility] | | | | | | MEDICAL | | | | | | CENTER - | | | | | | LABORATORY | | + + + + + + | % Monocytes | 3.7 (L) | 4.0 - 12.0 % | [facility] | | | | | | [facility] | | | | | | MEDICAL | | | | | | CENTER - | | | | | | LABORATORY | | + + + + + + | % | 0.7 | 0.0 - 5.0 % | [facility] | | | Eosinophils | | | [facility] | | | | | | MEDICAL | | | | | | CENTER - | | | | | | LABORATORY | | + + + + + + | % Basophils | 0.4 | 0.0 - 1.0 % | [facility] | | | | | | [facility] | | | | | | MEDICAL | | | | | | CENTER - | | | | | | LABORATORY | | + + + + + + | % Immature | 0.5 (H)Comment: | 0.0 - 0.4 % | [facility] | | | Granulocyte | Preliminary studies have | | [facility] | | | s | indicated the IG% | | MEDICAL | | | | and/or IG# show promise | | CENTER - | | | | as an early indicator | | LABORATORY | | | | for infection. | | | | + + + + + + | Absolute | 9.80 (H) | 1.80 - 8.50 | [facility] | | | Neutrophils | | K/uL | [facility] | | | | | | MEDICAL | | | | | | CENTER - | | | | | | LABORATORY | | + + + + + + | Absolute | 1.09 | 0.60 - 3.20 | [facility] | | | Lymphocytes | | K/uL | [facility] | | | | | | MEDICAL | | | | | | CENTER - | | | | | | LABORATORY | | + + + + + + | Absolute | 0.43 | 0.00 - 1.00 | [facility] | | | Monocytes | | K/uL | [facility] | | | | | | MEDICAL | | | | | | CENTER - | | | | | | LABORATORY | | + + + + + + | Absolute | 0.08 | 0.00 - 0.40 | [facility] | | | Eosinophils | | K/uL | [facility] | | | | | | MEDICAL | | | | | | CENTER - | | | | | | LABORATORY | | + + + + + + | Absolute | 0.05 | 0.00 - 0.10 | [facility] | | | Basophils | | K/uL | [facility] | | | | | | MEDICAL | | | | | | CENTER - | | | | | | LABORATORY | | + + + + + + | Absolute | 0.06 (H) | 0.00 - 0.03 | [facility] | | | Immature | | K/uL | [facility] | | | Granulocyte | | | MEDICAL | | | s | | | CENTER - | | | | | | LABORATORY | | + + + + + + | % nRBC | 0 | 0 - 2 per 100 | [facility] | | | | | WBCs | [facility] | | | | | | MEDICAL | | | | | | CENTER - | | | | | | LABORATORY | | + + + + + + | Absolute | 0.00 | 0.00 - 0.01 | [facility] | | | nRBC | | K/uL | [facility] | | | | | | MEDICAL | | | | | | CENTER - | | | | | | LABORATORY | | + + + + + + + + | Specimen | + + | Blood | + + + + + + + | Performing | Address | City/State/Zipcode | Phone Number | | Organization | | | | + + + + + | [facility] | [address] | [place] | [phone] | | [facility] | | [address] | | | - LABORATORY | | | | + + + + + Hemoglobin A1C (12/01/2019 7:40 PM PDT) + +-------+ + + + | Component | Value | Ref Range | Performed | Pathologist | | | | | At | Signature | + +-------+ + + + | Hemoglobin | 6.0 | 4.3 - 6.0 % | [facility] | | | A1c | | | [facility] | | | | | | MEDICAL | | | | | | CENTER - | | | | | | LABORATORY | | + +-------+ + + + | Estimated | 126 | mg/dL | [facility] | | | Average | | | [facility] | | | Glucose | | | MEDICAL | | | | | | CENTER - | | | | | | LABORATORY | | + +-------+ + + + + + | Specimen | + + | Blood | + + + + + + + | Performing | Address | City/State/Zipcode | Phone Number | | Organization | | | | + + + + + | [facility] | [address] | [place] | [phone] | | [facility] | | [address] | | | - LABORATORY | | | | + + + + + Renal Function Panel (12/01/2019 7:40 PM PDT) + + + + + + | Component | Value | Ref Range | Performed | Pathologist | | | | | At | Signature | + + + + + + | Na | 133 (L) | 136 - 145 | [facility] | | | | | mmol/L | [facility] | | | | | | MEDICAL | | | | | | CENTER - | | | | | | LABORATORY | | + + + + + + | K | 3.9 | 3.4 - 5.1 | [facility] | | | | | mmol/L | [facility] | | | | | | MEDICAL | | | | | | CENTER - | | | | | | LABORATORY | | + + + + + + | Cl | 100 | 98 - 107 mmol/L | [facility] | | | | | | [facility] | | | | | | MEDICAL | | | | | | CENTER - | | | | | | LABORATORY | | + + + + + + | CO2 | 25 | 20 - 31 mmol/L | [facility] | | | | | | [facility] | | | | | | MEDICAL | | | | | | CENTER - | | | | | | LABORATORY | | + + + + + + | Anion Gap | 8 | 3 - 16 mmol/L | [facility] | | | | | | [facility] | | | | | | MEDICAL | | | | | | CENTER - | | | | | | LABORATORY | | + + + + + + | Glucose | 120 (H) | 60 - 106 mg/dL | [facility] | | | | | | [facility] | | | | | | MEDICAL | | | | | | CENTER - | | | | | | LABORATORY | | + + + + + + | BUN | 26 (H) | 9 - 23 mg/dL | [facility] | | | | | | [facility] | | | | | | MEDICAL | | | | | | CENTER - | | | | | | LABORATORY | | + + + + + + | Creatinine | 0.74 | 0.70 - 1.30 | [facility] | | | | | mg/dL | [facility] | | | | | | MEDICAL | | | | | | CENTER - | | | | | | LABORATORY | | + + + + + + | eGFR if not | >60Comment: GLOMERULAR | >=60 | [facility] | | | | FILTRATION | mL/min/1.73m2 | [facility] | | | [place] | RATE,ESTIMATED | | MEDICAL | | | | mL/min/1.11z1Cwxm than | | CENTER - | | | | 60 Chronic kidney | | LABORATORY | | | | disease,if found over a | | | | | | 3-month period.Less than | | | | | | 15 Kidney failureFor | | | | | | | | | | | | Americans,multiply the | | | | | | calculated GFR by 1.21. | | | | | | | | | | + + + + + + | Calcium | 8.3 (L) | 8.7 - 10.4 | [facility] | | | | | mg/dL | [facility] | | | | | | MEDICAL | | | | | | CENTER - | | | | | | LABORATORY | | + + + + + + | Albumin | 2.6 (L) | 3.2 - 4.8 g/dL | [facility] | | | | | | [facility] | | | | | | MEDICAL | | | | | | CENTER - | | | | | | LABORATORY | | + + + + + + | Phosphorus | 3.8 | 2.4 - 5.1 mg/dL | [facility] | | | | | | [facility] | | | | | | MEDICAL | | | | | | CENTER - | | | | | | LABORATORY | | + + + + + + | BUN/Creatin | 35.1 | | [facility] | | | ine Ratio | | | [facility] | | | | | | MEDICAL | | | | | | CENTER - | | | | | | LABORATORY | | + + + + + + + + | Specimen | + + | Blood | + + + + + + + | Performing | Address | City/State/Zipcode | Phone Number | | Organization | | | | + + + + + | [facility] | [address] | [place] | [phone] | | [facility] | | [address] | | | - LABORATORY | | | | + + + + + Culture, MRSA (12/01/2019 7:03 PM PDT) + + + + + + | Component | Value | Ref Range | Performed | Pathologist | | | | | At | Signature | + + + + + + | Culture | Negative for MRSA by | | [facility] | | | | chromogenic agar method. | | [facility] | | | | | | MEDICAL | | | | | | CENTER - | | | | | | LABORATORY | | + + + + + + | Culture | 4+ Coagulase positive | | [facility] | | | | Staphylococcus | | [facility] | | | | | | MEDICAL | | | | | | CENTER - | | | | | | LABORATORY | | + + + + + + + + | Specimen | + + | Tissue - Both | | anterior nares (body | | structure) | + + + + + + + | Performing | Address | City/State/Zipcode | Phone Number | | Organization | | | | + + + + + | [facility] | [address] | [place] | [phone] | | [facility] | | [address] | | | - LABORATORY | | | | + + + + + CT Angiogram Chest W Contrast (12/01/2019 2:00 PM PDT) + + | Specimen | [...] | | | + +---------+ + + XR Chest 1 Vw (12/01/2019 1:30 PM [...] | | | + +---------+ + + from Last 3 Months Insurance + +--------+ +--------+ +---------+--------+ | Payer | Benefi | Subscriber | Effect | Phone | Address | Type | | | t Plan | ID | roberto | | | | | | / | | Dates | | | | | | Group | | | | | | + +--------+ +--------+ +---------+--------+ | MEDICARE | MEDICA | [id number] | 08/26/19 | [phone] | | Medica | | | RE | | 20-Pre | 5 | | re | | | PART A | | sent | | | | | | AND B | | | | | | + +--------+ +--------+ +---------+--------+ | [facility] | [employer] | [id number] | 11/25/19 | | | Indemn | | SERVICE | YELLOW | | 20-Pre | | | ity | | | [place]WK | | sent | | | | + +--------+ +--------+ +---------+--------+ + +--------+ +--------+ + + | Guarantor Name | Accoun | Relation to | Date | Phone | Billing Address | | | t Type | Patient | of | | | | | | | | | | + +--------+ +--------+ + + | Esa Leigh | Person | Self [birth year] | [address] | | | al/Fam | | 1945 | [phone] | [place] [address] | | | [place] | | | 9 (Home) | | + +--------+ +--------+ + + Advance Directives + + + + + | Type | Date Recorded | Patient | Explanation | | | | Finance Admin | | + + + + + | Power of | | | | | [employer] | | | | + + + + + | Advance | 12/02/2019 10:59 | | Wants info | | Directive | AM | | | + + + + + + + + + + | Code Status | Date | Date | Comments | | | Activated | Inactivated | | + + + + + | Full Code | 12/01/2019 | 12/04/2019 | | | | 7:01 PM | 7:45 PM | | + + + + +
--- OUTSIDE RECORDS SUMMARY | ~2019-12-23 | XMS | Encounter Summary ---
Demographics + + + | Address | [address] | | | [place] [address] | + + + | Home Phone | | + + + | Preferred Language | Unknown | + + + | Marital Status | Single | + + + | Restoration Affiliation | 1041 | + + + | Race | Unknown | + + + | Ethnic Group | Unknown | + + + Author + + + | Author | [facility] | | | and [place] | + + + | Organization | [facility] | | | and [place] [...] Team Providers + +------+ + | Care Beader Tender Name | Role | Phone | + +------+ + | Tomasz Vu MD | PCP | | + +------+ + Encounter Details +--------+ + + + + | Date | Type | Department | Care Team | Description | +--------+ + + + + | 12/01/ | Orders Only | [facility] | Ana Nino, | Atrial flutter, | | 2019 | | MED CTR OR PRE OP | RN | unspecified type | | | | [address] | | ([facility]) | | | | [place] [address] | | | | | | [phone] | | | +--------+ + + + [...] [place]ope, | | | | | [place] [address] | unspecified syncope | | | | | [phone] | type; Atrial | | | | | | flutter, unspecified | | | | | | type ([facility]) | +--------+ + + + + | 12/30/ | Surgery | Radiology | Colin Diallo, | CV EP ABLATION AF | | 2019 | | | [address] | | | | | | [address] [place], | | | | | | [place] [address] | | | | | | [phone] | | | | | | | | +--------+ + + + + | 01/14/ | Virtual | Cardiology | Andrew Gamboa, | | 2019 | Office | | MD [address]ie [address] | | | | Visit | | [place], | | | | | | [place] [address] | | | | | | [phone] | | | | | | | | +--------+ + + + + documented as of this encounter Results EP CARDIOVERSION (12/02/2019 1:45 PM PDT) + + + | Narrative | Performed At | + + + | Andrew Gamboa MD 12/02/2019 1:45 PM CARDIOVERSION | [facility] | | REPORT PATIENT NAME/: Esa Leigh, (1945) | [facility] | | DATE OF PROCEDURE: 12/02/2019 | [facility] | | CERTIFIED GENETIC COUNSELOR: Andrew Gamboa MD Procedures | - IMAGING [...] ST. | [address] | [place] | [phone] | | [facility] | | [address] | | | - IMAGING | | | | + + + + + documented in this encounter Visit Diagnoses + + | Diagnosis | + + | Atrial flutter, unspecified type (HCC) | + + documented in this encounter"
--- OUTSIDE RECORDS SUMMARY | ~2019-12-23 | XMS | Encounter Summary ---
Demographics + + + | Address | [address] | | | [place] [address] | + + + | Home Phone | | + + + | Preferred Language | Unknown | + + + | Marital Status | Single | + + + | Episcopalian Affiliation | 1041 | + + + | Race | Unknown | + + + | Ethnic Group | Unknown | + + + Author + + + | Author | [facility] | | | and [place] | + + + | Organization | [facility] | | | and [...] Team Providers + +------+ + | Care Honeycomb Blanket Maker Name | Role | Phone | + [...] [address] | | | | | [place] | [address] [place] | | | | | [place] [address] | [address] | | | | | [phone] | | | | | | | Ivan Gatica | | | | | | MD Conchis [address] | | | | | | [address] [facility] | | | | | | [place] [address] | | | | | | | [...] Efrain Quintero RN | | IV | incb-yfm-fozwcw catheter system; | | | | | 20 gauge; 12/04/19; 1535 | | | +--------+ + + + | Periph | 12/01/19; Right; Posterior | 12/01/19 0000 by Lulu | 12/04/19 1535 by | | eral | (dorsal); Forearm; | Emmanuel Jack RN | Efrain Quintero RN | | IV | intc-rmc-afaqcp catheter system; | | | | | [...] | | [place], | ([facility]); [place]ope, | | | | | [place] [address] | unspecified syncope | | | | | [phone] | type; Atrial | | | | | | flutter, unspecified | | | | | | type ([facility]) | +--------+ + + + + | 12/30/ | Surgery | Radiology | Colin Diallo, | CV EP ABLATION AF | 2019 | | | MD [address] | | | | | | [place], | | | | | | [place] [address] | | | | | | [phone] | | | | | | | | +--------+ + + + + | 01/14/ | Virtual | Cardiology | Andrew Gamboa, | | | 2020 | Office | | MD [address] | | | | Visit | | [place], | | | | | | [place] [address] | | | | | | [phone] | | | | | | | [...]
--- OUTSIDE RECORDS SUMMARY | ~2019-12-23 | XMS | Encounter Summary ---
Demographics + + + | Address | [address] | | | [place] [address] | + + + | Home Phone | | + + + | Preferred Language | Unknown | + + + | Marital Status | Single | + + + | Nondenominational Affiliation | 1041 | + + + | Race | Unknown | + + + | Ethnic Group | Unknown | + + + Author + + + | Author | [facility] | | | and [place] | + + + | Organization | [facility] | | | and [place] [...] Team Providers + +------+ + | Care Desulphuring Operator Name | Role | Phone | + +------+ + | Tomasz Vu MD | PCP | | + +------+ + Encounter Details +--------+---------+ + + + | Date | Type | Department | Care Team | Description | +--------+---------+ + + + | 12/13/ | Surgery | [facility] | Andrew Gamboa, | CV LHC | | 2020 | | MED CTR CV INTRA OP | [address] | | | | | [address] | [place], | | | | | [place] | [place] [address] | | | | | [address] | [phone] | | | | | [phone] | | | +--------+---------+ + + + Social History + + [...] documented as of this encounter Discharge Instructions Ana Sims RN - 12/14/2019 Home Care Instructions after [...] 2019 | Encounter | | MD Charity [facility] | unspecified type | | | | | [place], | ([facility]); [place], | | | | | [place] [address] | unspecified syncope | | | | | [phone] | type; Atrial | | | | | | flutter, unspecified | | | | | | type ([facility]) | +--------+ + + + + | 12/30/ | Surgery | Radiology | Colin Diallo, | CV EP ABLATION AF | 2019 | | | MD [address] | | | | | | [address] [place], | | | | | | [place] [address] | | | | | | [phone] | | | | | | | | +--------+ + + + + | 01/14/ | Virtual | Cardiology | Andrew Gamboa, | | | 2019 | Office | | MD [address] | | | | Visit | | [place], | | | | | | [place] [address] | | | | | | [phone] | | | | | | | [...] (1945) OF | | | PROCEDURE: 12/14/2019 SYSTEMS PROTECTION TECHNICIAN: Andrew Gamboa MD | | | PROCEDURES [...] sagittal and oblique projections. Apoorva Barnett, [facility] | | | diagnostic catheters were [...] moderate | | | sedation with continuous qbvr-zn-cgli attendance. My intra-service | | | time [...] + + | Performing | Address | City/State[facility] | Phone Number | | Organization | | | | + +---------+ + + | [facility] | | | | + +---------+ + + documented in this encounter Visit Diagnoses + + | Diagnosis | + + | Acute systolic heart failure (HCC) Acute systolic heart failure [...] + +---+ | | | + +---+ + +-------+ +--------+---+---+ | heparin 1,000 units/mL | Given | 12/14/19 | 4,000 | | | | injection ONCE PRN, Starting Mon | | 20 9:04 | Units | | | | 12/14/19 at 0904, Intra-op | | AM PDT | | | | + +-------+ +--------+---+---+ +---+---+ | | | +---+---+ + +-------+ +--------+---+---+ | iohexol (OMNIPAQUE 350) 350 | Given | 12/14/19 | 95 mLs | | | | mg/mL injection ONCE PRN, | | 20 9:32 | | | | | Starting 12/14/19 at 0932, | | AM PDT | | | | | Intra-op | | | | | | + +-------+ +--------+---+---+ + +---+ | | | + +---+ [...] + +---+ | | | + +---+ + +-------+ +---------+---+ + | lidocaine buffered 0.9% | Given | 12/14/19 | 0.5 mLs | | Surgical | | injection ONCE PRN, Starting Mon | | 20 9:00 | | | Site | | 12/14/19 at 0900, Intra-op | | AM PDT | | | | + +-------+ +---------+---+ + +---+---+ | | | +---+---+ + +-------+ +------+---+---+ | midazolam (VERSED) 1 mg/mL | Given | 12/14/19 | 2 mg | | | | injection ONCE PRN, Starting Mon | | 20 9:00 | | | | | 12/14/19 at 0900, Intra-op | | AM PDT | | | | + +-------+ +------+---+---+ +---+---+ | | | +---+---+ + +-------+ +-------+---+---+ | niCARdipine in saline (CARDENE) | Given | 12/14/19 | 4 mLs | | | | 100 mcg/mL syringe ONCE PRN, | | 20 9:27 | | | | | Starting 12/14/19 at 0914, | | AM PDT | | | | | Intra-op | | | | | | + +-------+ +-------+---+---+ +-------+ +-------+---+---+ | Given | 12/14/19 | 4 mLs | | | | | 20 9:20 | | | | | | AM PDT | | | | +-------+ +-------+---+---+ | Given | 12/14/19 | 4 mLs | | | | | 20 9:14 | | | | | | AM PDT | | | | +-------+ +-------+---+---+ + +---+ | | | + +---+ [...] + +---+ | | | + +---+ + +-------+ +---------+---+---+ | nitroglycerin 200 mcg/mL | Given | 12/14/19 | 400 mcg | | | | syringe ONCE PRN, Starting Mon | | 20 9:02 | | | | | 12/14/19 at 0902, Intra-op | | AM PDT | | | | + +-------+ +---------+---+---+ + +---+ | | | + +---+ [...] | Intravenous, CONTINUOUS, Starting | | | 12/14/19 at 0900, For | | | procedure only, not to exceed 1 | | | liter., Pre-op | | + +---+ | | | + +---+ documented in this encounter
--- OUTSIDE RECORDS SUMMARY | ~2019-12-23 | XMS | Encounter Summary ---
Demographics + + + | Address | [address] | | | [place] [address] | + + + | Home Phone | | + + + | Preferred Language | Unknown | + + + | Marital Status | Single | + + + | Congregation Affiliation | 1041 | + + + | Race | Unknown | + + + | Ethnic Group | Unknown | + + + Author + + + | Author | [facility] | | | and [place] | + + + | Organization | [facility] | | | and [...] Team Providers + +------+ + | Care Salmon Gillnet Vessel Operator Name | Role | Phone | + +------+ + | Tomasz Vu MD | PCP | | + +------+ + Encounter Details +--------+ + + + + | Date | Type | Department | Care Team | Description | +--------+ + + + + | 12/02/ | Imaging | [facility] | Provider, | | | 2019 | Exam | MED CTR EXTERNAL | MD [address] | | | | | IMAGING [address] | [address] | | | | | [address] | [facility] [address] | | | | | [place] [address] | | | | | | [phone] | | | +--------+ + + + [...] | 2020 | Encounter | | [address] | unspecified type | | | | | [address] [place] | ([facility]); [place], | | | | | [place] [address] | unspecified syncope | | | | | [phone] | type; Atrial | | | | | | flutter, unspecified | | | | | | type (HCC) | +--------+ + + + + | 12/30/ | Surgery | Radiology | Colin Diallo, | CV EP ABLATION AF | | 2019 | | | [address] | | | | | | [address] [place], | | | | | | [place] [address] | | | | | | [phone] | | | | | | | | +--------+ + + + + | 01/14/ | Virtual | Cardiology | Andrew Gamboa, | | | 2019 | Office | | [facility] | | | | Visit | | [place], | | | | | | [place] [address] | | | | | | [phone] | | | | | | | [...] + + documented in this encounter Results CT Angiogram Chest W Contrast (12/01/2019 2:00 [...]
--- OUTSIDE RECORDS SUMMARY | ~2019-12-23 | XMS | Encounter Summary ---
Demographics + + + | Address | [address] | | | [place] [address] | + + + | Home Phone | | + + + | Preferred Language | Unknown | + + + | Marital Status | Single | + + + | Scientologist Affiliation | [id number] | + + + | Race | Unknown | + + + | Ethnic Group | Unknown | + + + Author + + + | Author | [facility] | | | and [place] | + + + | Organization | [facility] | | | and [place] | + + + | Address | Unknown | + + + | Phone | Unavailable | + + + Support + + +---------+ + | Name | Relationship | Address | Phone | + + +---------+ + | Susi Fay | ECON | Unknown | | + + +---------+ + Care Team Providers + +------+ + | Care Transporter Driver Name | Role | Phone | + +------+ + | Tomasz Vu MD | PCP | | + +------+ + Reason for Visit + + + | Reason | Comments | + + + | Consultation | CARE CLINICIAN consult per javier MUNOZ | + + + | New Patient | | + + + Evaluate & Treat (Routine) +--------+ + + + + + | Status | Reason | Specialty | Diagnoses / | Referred By | Referred To | | | | | Procedures | Contact | Contact | +--------+ + + + + + | Closed | Specialty | Cardiology | Diagnoses | Bee, | Mariah, | | | Services | | Typical | MD Andrew | Oralia Benitez MD | | | Required | | atrial | [address] | [address] | | | | | flutter | [address] | [address] | | | | | ([facility]) | [place], | [address], | | | | | Procedures | [place] [address] | [place] [address] | | | | | 12/21> DOS | Phone: | Phone: | | | | | 12/17> PEND | [phone] | [phone] | | | | | [facility] - URGENT | Fax: | Fax: | | | | | REFERRAL TO | [phone] | [phone] | | | | | MARIAH | | | | | | | ORALIA | | | | | | | EARLEI | | | | | | | JANINE FOR | | | | | | | OV possible | | | | | | | ablation | | | +--------+ + + + + + Encounter Details +--------+ + + + + | Date | Type | Department | Care Team | Description | +--------+ + + + + | 12/17/ | Virtual | [facility] | Oralia Diallo, | Typical atrial | | 2019 | Office | CARDIOLOGY [facility] | MD [address] | flutter (HCC); Acute | | | Visit | [place] [address] | [address] [place], | systolic congestive | | | | [address] | [place] [address] | heart failure | | | | [address] | [phone] | ([facility]); | | | | [phone] | | Methamphetamine use | | | | | | ([facility]) | +--------+ + + + + Social [...] + + + | Blood Pressure | - | - | | + + + + + | Pulse | - | - | | + + + + + | Temperature | - | - | | + + + + + | Respiratory Rate | - | - | | + + + + + | Oxygen Saturation | - | - | | + + + + + | Inhaled Oxygen | - | - | | | Concentration | | | | + + + + + | Weight | - | - | | + + + + + | Height | 177.8 cm (5' 10") | 12/18/2019 10:15 AM | | | | | PDT | | + + + + + | Body Mass Index | - | - | | + + + + + [...] + + documented as of this encounter Patient Instructions Patient Instructions Oralia Diallo MD - 12/18/2019 2:00 PM PDTStop aspirin. Continue El iquis for now. We have submitted AUTH request for atrial flutter ablation and biventricular ICD implant ([employer]). RN has contacted you. Will plan to expedite scheduling as discussed. Hold dose of Eliquis the morning of the procedure. Instruction will be forthcoming. ~Thank You, Cardiology documented in this encounter Progress Notes Oralia Diallo MD - 12/18/2019 2:00 PM PDTFormatting of this note might be different fro m the original. PATIENT NAME: Esa Leigh : 1945: AGE: 74 y.o. PRIMARY CARE: Tomasz Vu MD DATE OF SERVICE: 12/18/2019 VIRTUAL PATIENT VISIT PATIENT LOCATION: Home PROVIDER LOCATION: [facility] Patient was originally scheduled for an in-office visit but due to the COVID-19 outbreak we are completing this visit as a virtual visit. You have chosen to receive care through the use of telemedicine. Telemedicine enables [facility] care providers at different locations to provide safe, effective and convenient care throu gh the use of technology. As with any health care service, there are risks associated with t he use of telemedicine, including equipment failure, poor image resolution and information s ecurity issues. Do you understand the risks and benefits of telemedicine as I have explained them to you? " Yes" Do you consent to going forward with this service today? Audio/Video Source: Zoom Patient was provided with all of the above information and has agreed to go forward with ou r visit. Signed: Oralia Diallo MD REFERRING PROVIDER: Dr. Gamboa CHIEF COMPLAINT: EP consult for atrial flutter and cardiomyopathy with left bundle branch b lock HISTORY OF PRESENT ILLNESS Esa is a 74 y.o. year old male with a history of nonischemic cardiomyopathy (EF 30 to 35 %, NYHA class III chronic systolic heart failure) initially diagnosed approximately 2 years ago, left bundle branch block, typical atrial flutter, methamphetamine abuse (no IV drug use , quit a month ago) and unexplained syncope who presents via video conference visit in the s etting of the coronavirus pandemic. The patient provides an incomplete history, but passed out approximately 2 years ago, as well as more recently, though cannot provide details there . He was walking when he passed out, and hit his head. He was recently diagnosed with atri al flutter and underwent cardioversion in early November in [place]. He also underwent car [facility] catheterization, where he was not found to have significant coronary artery disease. S lolis cardioversion, he has been maintained on amiodarone. He continues to retain fluid, and was started on Lasix recently. At the time of his initial diagnosis approximately 2 years ago, he was recommended to start medical therapy, but was noncompliant. He is now compliant with medical therapy. During this virtual visit, I reviewed the referring providers note dated 12/04/2019, labs an d diagnostic studies as outlined below. CURRENT ASSESSMENT: 74-year-old man with nonischemic cardiomyopathy and chronic systolic heart failure, left bu ndle branch block, typical atrial flutter, and unexplained syncope presenting for EP video c onference evaluation for atrial flutter and cardiomyopathy/left bundle branch block. PLAN: 1. Typical atrial flutter I discussed management options with the patient and his daughter, including continuation of amiodarone and medical management, or ablation. The patient states that he wishes to have more definitive management with the hope of getting off amiodarone in the future, which I be lieve is reasonable. Plan for atrial flutter ablation. Risks, benefits, alternatives were discussed. Transesophageal echo will not be necessary. Hold Eliquis the morning of the pro cedure for device implant as detailed below. 2. Left bundle branch block/nonischemic cardiomyopathy Unclear if the patient's cardiomyopathy is related to his left bundle branch block, his met h abuse, or his atrial flutter. Given the patient's unexplained syncope in the presence of left bundle branch block with significant cardiomyopathy, biventricular ICD would be recomme nded. I discussed this option in depth with the patient and his daughter, and they wish to proceed. We will plan for biventricular ICD implant at the time of atrial flutter ablation. Continue maximally tolerated medical management as per the patient's car starter, Dr. Prabhjot wilson. The patient has not been on maximally tolerated medical therapy for 3 months, but g iven his unexplained syncope, device implant would be recommended. 3. Methamphetamine abuse The patient is currently abstaining from methamphetamine. Strongly recommend avoid methamp hetamine. I am having Esa Leigh maintain his UNCODED DME, UNCODED DME, amiodarone, apixaban, aspir in, lisinopril, potassium chloride, furosemide, carvedilol, and atorvaSTATin. NEW ORDERS No orders of the defined types were placed in this encounter. FOLLOWUP Return Post procedure. Of course patient is to present to the ER if symptoms worsen or change in any way. CURRENT MEDICATIONS Outpatient Encounter Medications as of 12/18/2019 Medication Sig Dispense Refill amiodarone (PACERONE) 200 mg tablet 2 tablets twice a day for 6 days then reduce dose t o 1 tablet once a day by mouth 100 tablet 0 apixaban (ELIQUIS) 5 mg tablet Take 1 tablet by mouth 2 times daily. Indications: Atria l Fibrillation 60 tablet 0 aspirin 81 MG EC tablet Take 1 tablet by mouth Daily. 30 tablet 0 atorvaSTATin (LIPITOR) 20 mg tablet Take 1 tablet by mouth Daily. 90 tablet 3 carvedilol (COREG) 3.125 mg tablet Take 1 tablet by mouth 2 times daily (with breakfast & dinner). 180 tablet 3 furosemide (LASIX) 40 mg tablet Take 1 tablet by mouth 2 times daily. 180 tablet 3 lisinopril (PRINIVIL, ZESTRIL) 5 mg tablet Take 1 tablet by mouth 2 times daily (at [facility] and bedtime). 60 tablet 0 potassium chloride (KLOR-CON) 10 mEq CR tablet Take 1 tablet by mouth Daily. 90 tablet 3 UNCODED DME Blood pressure kit for home monitoring check BP twice a day and prn 1 each 0 UNCODED DME Finger Oximeter for home use check twice a day and prn 1 each 0 No facility-administered encounter medications on file as of 12/18/2019. Please note Epic has a flaw in which medication corrections are listed as if they were disc ontinued at the time of the visit. I did not "discontinue" any the above medications unless noted in my assessment and plan; rather the patient was either not on these medications upon arrival today or I made refills or dose adjustments as otherwise noted. ALLERGIES No Known Allergies MEDICAL, SURGICAL, AND SOCIAL HISTORY: PAST MEDICAL HISTORY: Esa has a past medical history of Atrial flutter with rapid ventr icular response (HCC), Heart failure (HCC), and Smoker. PAST SURGICAL HISTORY: has a past surgical history that includes Cardioversion; Cardiac ca theterization (N/A, 12/14/2019); Cardiac catheterization (N/A, 12/14/2019); and Cardiac cathet erization (N/A, 12/14/2019). FAMILY HISTORY: family history includes Heart disease in his brother, father, and mother. SOCIAL HISTORY: reports that he has never smoked. He has never used smokeless tobacco. He reports previous alcohol use. He reports previous drug use. Drug: Methamphetamines. REVIEW OF SYSTEMS: 12 point ROS was completed and is negative except for: Fluid retention, shortness of breath , fatigue PHYSICAL EXAM: Ht 1.778 m (5' 10") | BMI 23.60 kg/m Body mass index is 23.6 kg/m. General appearance: Alert, appears stated age and cooperative Eyes: Sclerae anicteric. No conjunctival injection or exudates. ENT: No oral mucosal pallor or cyanosis. Lungs: Normal respiratory pattern with unlabored breathing, no audible wheezes. CV: + JVD, + lower extremity pitting edema Extremities: Extremities normal, atraumatic, no clubbing, no cyanosis. Skin: No rashes or sores observed. No bruising. Psych: Good mood, normal affect. Able to provide a limited history. Daughter provides a co mplete history. Neuro: Independently mobile with non-antalgic gait. Normal speech pattern, no apparent trem ors, no facial droop. REVIEW OF DIAGNOSTIC STUDIES: ECG: Ectopic atrial rhythm at 80 bpm with a left bundle branch block, QRS duration approximately 150 ms on 12/02/2019 Prior EKG on 12/02/2019 demonstrates typical atrial flutter with 2-1 AV conduction ECHOCARDIOGRAM: Echo 12/02/2019 reveals an EF of 30 to 35% OTHER TESTING: Cardiac catheterization performed 12/14/2019 reveals no obstructive CAD I have independently reviewed the imaging reports for the above listed tests. LABS Lab Results Component Value Date WBC 11.7 (H) 12/03/2019 HGB 12.8 (L) 12/03/2019 HCT 37.5 (L) 12/03/2019 PLT 350 12/03/2019 NA 134 (L) 12/04/2019 K 3.9 12/04/2019 CL 100 12/04/2019 CREA 0.93 12/04/2019 BUN 33 (H) 12/04/2019 CO2 27 12/04/2019 I have personally reviewed and interpreted the above most recent data. Thank you for allowing me to participate in the care of this patient. If you have any ques tions, please do not hesitate to contact me. Patient Care Team: Tomasz Vu MD as PCP - General (Family Medicine) Portions of this report were transcribed using voice recognition software. Every effort wa s made to ensure accuracy; however, inadvertent computerized gas torch brazier errors may be pre sent. Total time spent on this visit was 40 minutes. This includes review of available records, discussing the case with other providers, placing orders, etc., and in discussion directly w ith the patient over phone or video. Electronically signed by: Oralia Diallo MD 12/18/2019 2:31 PM armen Vicente, Hot Billet Shear Operator - 12/18/2019 2:00 PM PDTReview of Systems Constitutional: Positive for diaphoresis and malaise/fatigue. HENT: Negative. Eyes: Negative. Respiratory: Positive for shortness of breath. Cardiovascular: Positive for leg swelling. Gastrointestinal: Negative. Genitourinary: Positive for urgency. Musculoskeletal: Negative. Skin: Negative. Neurological: Negative. Endo/Heme/Allergies: Negative. Psychiatric/Behavioral: The patient is nervous/anxious. Spoke with patients caregiver susi, she explained patient's urine is almost brown and pa darlenenitin experiences nightmares and has dimentia I spoke to Esa Leigh on the phone and the following information has been reviewed and updated in the chart: For this visit the patient will be using their Zoom for this visit. Preferred phone number: [phone] Medications and Allergies have been reviewed and updated Last OV: 12/17/19 Last EK12/17/19 Patient has had recent Cardiac testing/procedures: none Records are In [facility] Patient's most recent : Lipid Panel N/A, BMP/CMP 12/04/19 Lab report is In [facility] Recent Cardiac ED or Hospital Visits? none documented in this en counter Plan of Treatment +--------+ + + + + | Date | Type | Specialty | Care Team | Description | +--------+ + + + + | 12/30/ | Hospital | Radiology | Oralia Diallo, | Cardiomyopathy, | | 2019 | Encounter | | [address] | unspecified type | | | | | [address] [place], | ([facility]); Syncope, | | | | | [place] [address] | unspecified syncope | | | | | [phone] | type; Atrial | | | | | | flutter, unspecified | | | | | | type ([facility]) | +--------+ + + + + | 12/30/ | Surgery | Radiology | Oralia Diallo, | CV EP ABLATION AF | 2019 | | | [address] | | | | | | [address] [place], | | | | | | [place] [address] | | | | | | [phone] | | | | | | | | +--------+ + + + + | 01/14/ | Virtual | Cardiology | Andrew Gamboa, | | 2019 | Office | | MD Richie Leone | | | | Visit | | [address] [address] [place], | | | | | | [place] [address] | | | | | | [phone] | | | | | | | | +--------+ + + + + documented as of this encounter Visit Diagnoses + + | Diagnosis | + + | Typical atrial flutter (HCC) Atrial flutter | + + | Acute systolic congestive heart failure (HCC) Acute systolic heart failure | + + | Methamphetamine use (HCC) Nondependent amphetamine or related acting sympathomimetic | | abuse, unspecified | + + documented in this encounter
--- OUTSIDE RECORDS SUMMARY | ~2019-12-23 | XMS | Encounter Summary ---
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 over 10 Minutes, ONCE, | | | | | | | 12/02/19 at 1430, For 1 dose, | | | | | | | Give the bolus over 20 minutes | | | | | | | not over 10 minutes For Rhythm | | | | | | | Control Use 0.2 micron filter for | | | | | | | administration., | | | | | | + +---------+ +--------+-------+---+ +---+---+ | | | +---+---+ + +-------+ +------+---+---+ | apixaban (ELIQUIS) tablet 5 mg | Given | 12/04/19 | 5 mg | | | | 5 mg, Oral, 2 TIMES DAILY, First | | 20 10:16 | | | | | dose on 12/02/19 at 2100 | | AM PDT | | | | + +-------+ +------+---+---+ +-------+ +------+---+---+ | Given | 12/03/19 | 5 mg | | | | | 20 8:18 | | | | | | PM PDT | | | | +-------+ +------+---+---+ | Given | 12/03/19 | 5 mg | | | | | 20 8:08 | | | | | | AM PDT | | | | +-------+ +------+---+---+ +---+---+ | | | +---+---+ + +-------+ +-------+---+---+ | aspirin EC tablet 81 mg 81 mg, | Given | 12/04/19 | 81 mg | | | | Oral, DAILY, First dose on Sat | | 20 10:16 | | | | | 12/03/19 at 1245, Do not cut or | | AM PDT | | | | | crush., | | | | | | + +-------+ +-------+---+---+ +-------+ +-------+---+---+ | Given | 12/03/19 | 81 mg | | | | | 20 1:41 | | | | | | PM PDT | | | | +-------+ +-------+---+---+ + +---+ | | | + +---+ | atorvaSTATin (LIPITOR) tablet | | | 20 mg 20 mg, Oral, NIGHTLY, | | | First dose on Sat12/04/19 at 2100 | | + +---+ | | | + +---+ | dextrose 50% injection 12.5-25 | | | g 12.5-25 g, Intravenous, EVERY | | | 15 MIN PRN, Low Blood Sugar, For | | | hypoglycemia. Give 12.5g (25ml) | | | IV if blood glucose 50-69 | | | mg/dL. Give 25g (50ml) IV if | | | blood glucose < 50, Starting Wed | | | 12/02/19 at 1432, Give over 2 min. | | | Repeat in 15 min if blood | | | glucose remains < 70 mg/dL. | | | Repeat blood glucose in 30 min | | | once blood glucose > 70., | | | Recovery/Phase I | | + +---+ | | | + +---+ + + + +---------+---------+---+ | dilTIAZem (CARDIZEM) 1 mg/mL in | Rate/Dos | 12/02/19 | 5 mg/hr | 5 mL/hr | | | sodium chloride 0.9% 125 mL | e Change | 20 1:00 | | | | | infusion 0-15 mg/hr (0-15 | | PM PDT | | | | | mL/hr), at 0-15 mL/hr, | | | | | | | Intravenous, TITRATED, Starting | | | | | | | 12/01/19 at 2015, Titration | | | | | | | Instruction: See below, Goal: HR | | | | | | | less than 120, Initial dose: 5 | | | | | | | mg/hr, Increase rate by: 5 mg/hr | | | | | | | every 15 minutes., Decrease rate | | | | | | | by: 5 mg/hr every 15 minutes., *: | | | | | | | Titrate drug per order as | | | | | | | tolerated. Titration may vary | | | | | | | based on the patient | | | | | | | | | | | | | | s critical condition. | | | | | | + + + +---------+---------+---+ +---------+ + + +---+ | New Bag | 12/02/19 | 10 mg/hr | 10 mL/hr | | | | 20 11:06 | | | | | | AM PDT | | | | +---------+ + + +---+ | New Bag | 12/01/19 | 10 mg/hr | 10 mL/hr | | | | 20 9:01 | | | | | | PM PDT | | | | +---------+ + + +---+ +---+---+ | | | +---+---+ + +-------+ +------+---+---+ | dilTIAZem (CARDIZEM) injection | Given | 12/01/19 | 5 mg | | | | 5 mg 5 mg, Intravenous, EVERY 4 | | 20 8:16 | | | | | HOURS PRN, Kindly administer 5 mg | | PM PDT | | | | | IV bolus with every 2.5 mg/h | | | | | | | increase in drip rate., Starting | | | | | | | Sat12/01/19 at 1859, Keep in | | | | | | | refrigerator., | | | | | | + +-------+ +------+---+---+ +-------+ +------+---+---+ | Given | 12/01/19 | 5 mg | | | | | 20 7:40 | | | | | | PM PDT | | | | +-------+ +------+---+---+ +---+---+ | | | +---+---+ + +-------+ +-------+---+---+ | dilTIAZem (CARDIZEM) tablet 30 | Given | 12/02/19 | 30 mg | | | | mg 30 mg, Oral, EVERY 6 HOURS ( | | 20 5:24 | | | | | times per day), First dose on | | AM PDT | | | | | Sat12/01/19 at 2100, Hold for | | | | | | | SBP<90, HR<60, | | | | | | + +-------+ +-------+---+---+ +-------+ +-------+---+---+ | Given | 12/01/19 | 30 mg | | | | | 20 9:01 | | | | | | PM PDT | | | | +-------+ +-------+---+---+ +---+---+ | | | +---+---+ + +-------+ + +--------+---+ | dipyridamole (PERSANTINE) 60mg | Given | 12/03/19 | 10.1388 | 405.6 | | | in 40 mL NS syringe 0.142 | | 20 9:45 | mg/min | mL/hr | | | mg/kg/min | | AM PDT | | | | | 71.4 kg (405.552 mL/hr, rounded | | | | | | | to 405.6 mL/hr), Intravenous, | | | | | | | Administer over 4 Minutes, ONCE, | | | | | | | [facility] 12/03/19 at 0945, For 1 dose, | | | | | | | Nuclear Medicine | | | | | | + +-------+ + +--------+---+ +---+---+ | | | +---+---+ + +-------+ +-------+---+ + | enoxaparin (LOVENOX) 80 mg/0.8 | Given | 12/01/19 | 80 mg | | Abdomen- | | mL injection 80 mg 80 mg | | 20 7:54 | | | LLQ | | (rounded from 71 mg = 1 mg/kg | | PM PDT | | | | | 71 kg), Subcutaneous, ONCE, Tue | | | | | | | 12/01/19 at 1945, For 1 dose | | | | | | + +-------+ +-------+---+ + +---+---+ | | | +---+---+ + +-------+ +-------+---+ + | enoxaparin (LOVENOX) 80 mg/0.8 | Given | 12/02/19 | 80 mg | | Abdomen- | | mL injection 80 mg 80 mg | | 20 11:10 | | | LUQ | | (rounded from 71.4 mg = 1 mg/kg | | AM PDT | | | | | | | | | | | | 71.4 kg), Subcutaneous, EVERY 12 | | | | | | | HOURS (2 times per day), First | | | | | | | dose on Sat12/02/19 at 0900 | | | | | | + +-------+ +-------+---+ + + +---+ | | | + +---+ | ePHEDrine 50 mg/mL injection 5 | | | mg 5 mg, Intravenous, EVERY 5 | | | MIN PRN, if SBP <90., Starting | | | 12/02/19 at 1432, Hold if HR > | | | 100. Maximum total dose 20mg., | | | Recovery/Phase I | | + +---+ | | | + +---+ + +-------+ +-------+---+---+ | furosemide (LASIX) injection 40 | Given | 12/01/19 | 40 mg | | | | mg 40 mg, Intravenous, 2 TIMES | | 20 7:42 | | | | | DAILY 0800 & 1600, First dose on | | PM PDT | | | | | 12/01/19 at 1930 | | | | | | + +-------+ +-------+---+---+ + +---+ | | | + +---+ | hydrALAZINE (APRESOLINE) | | | injection 5 mg 5 mg, | | | Intravenous, EVERY 20 MINUTES | | | PRN, For SBP > 180, DBP > 100, | | | Starting 12/02/19 at 1432, Hold | | | if HR > 100. Maximum total dose | | | 40 mg. Use labetalol first if | | | available., Recovery/Phase I | | + +---+ | | | + +---+ | labetalol (TRANDATE) 5 mg/mL | | | injection 5 mg 5 mg, | | | Intravenous, EVERY 5 MIN PRN, For | | | SBP > 180, DBP > 100, Starting | | | 12/02/19 at 1432, Hold if HR < | | | 60. Maximum total dose 300mg. | | | Notify anesthesia if patient | | | requires more than 50mg., | | | Recovery/Phase I | | + +---+ | | | + +---+ + +-------+ +------+---+---+ | lisinopril (PRINIVIL, ZESTRIL) | Given | 12/04/19 | 5 mg | | | | tablet 5 mg 5 mg, Oral, Twice | | 20 10:16 | | | | | daily breakfast/Bedtime, First | | AM PDT | | | | | dose on Jennie 12/03/19 at 0800 | | | | | | + +-------+ +------+---+---+ +-------+ +------+---+---+ | Given | 12/03/19 | 5 mg | | | | | 20 8:18 | | | | | | PM PDT | | | | +-------+ +------+---+---+ | Given | 12/03/19 | 5 mg | | | | | 20 8:08 | | | | | | AM PDT | | | | +-------+ +------+---+---+ +---+---+ | | | +---+---+ + +-------+ +------+---+---+ | melatonin tablet 3 mg 3 mg, | Given | 12/03/19 | 3 mg | | | | Oral, NIGHTLY PRN, Insomnia, | | 20 3:35 | | | | | Starting 12/01/19 at 1856 | | AM PDT | | | | + +-------+ +------+---+---+ + +---+ | | | + +---+ | meperidine (DEMEROL) injection | | | 12.5-25 mg 12.5-25 mg, | | | Intravenous, PRN, Shivering, | | | Starting Sat12/02/19 at 1432, For | | | 2 doses, May Repeat once in 5 | | | min., Recovery/Phase I | | + +---+ | | | + +---+ | ondansetron (ZOFRAN) injection | | | 4 mg 4 mg, Intravenous, EVERY 4 | | | HOURS PRN, Nausea, Vomiting, | | | Starting Sat12/02/19 at 1432, | | | Recovery/Phase I | | + +---+ | | | + +---+ + +-------+ +-------+---+---+ | perflutren lipid microspheres | Given | 12/02/19 | 2 mLs | | | | (DEFINITY) injection 2 mL 2 mL, | | 20 8:02 | | | | | Intravenous, ONCE PRN, Other, | | AM PDT | | | | | Starting 12/02/19 at 0802, For | | | | | | | 1 dose, Echo | | | | | | + +-------+ +-------+---+---+ +---+---+ | | | +---+---+ + +-------+ +--------+---+---+ | potassium bicarb-citric acid | Given | 12/02/19 | 20 mEq | | | | (EFFER-K) effervescent tablet 20 | | 20 3:14 | | | | | mEq 20 mEq, Oral, ONCE, Wed | | PM PDT | | | | | 12/02/19 at 0845, For 1 dose, | | | | | | | Dissolve 10 mEq tab in 58-85 mL | | | | | | | water. Dissolve 20 mEq tab in | | | | | | | 85-115 mL water., | | | | | | + +-------+ +--------+---+---+ +---+---+ | | | +---+---+ + +---------+ [...] +---------+ +---+---+---+ +---+---+ | | | +---+---+ + +---------+ +---+-------+---+ | sodium chloride 0.9% (NS) | New Bag | 12/02/19 | | 125 | | | infusion at 125 mL/hr, | | 20 1:06 | | mL/hr | | | Intravenous, CONTINUOUS, Starting | | PM PDT | | | | | 12/02/19 at 1215, For | | | | | | | procedure only, not to exceed 1 | | | | | | | liter., Pre-op | | | | | | + +---------+ +---+-------+---+ +---+---+ | | | +---+---+ + +-------+ + +---+---+ | technetium TC-99M sestamibi | Given | 12/03/19 | 10.5 | | | | (CARDIOLITE) injection 10.5 | | 20 9:15 | millicur | | | | millicurie 10.5 millicurie, | | AM PDT | ies | | | | Intravenous, ONCE PRN, Other, | | | | | | | Starting [facility] 12/03/19 at 0915, For | | | | | | | 1 dose, Nuclear Medicine | | | | | | + +-------+ + +---+---+ +---+---+ | | | +---+---+ + +-------+ + +---+---+ | technetium TC-99M sestamibi | Given | 12/03/19 | 30 | | | | (CARDIOLITE) injection 30 | | 20 11:10 | millicur | | | | millicurie 30 millicurie, | | AM PDT | ies | | | | Intravenous, ONCE CAREY, Other, | | | | | | | Starting [facility] 12/03/19 at 1110, For | | | | | | | 1 dose, Nuclear Medicine | | | | | | + +-------+ + +---+---+ +---+---+ | | | +---+---+ documented in this encounter
--- OUTSIDE RECORDS SUMMARY | ~2019-12-23 | XMS | Encounter Summary ---
Demographics + + + | Address | [address] | | | [place] [address] | + + + | Home Phone | | + + + | Preferred Language | Unknown | + + + | Marital Status | Single | + + + | Scientologist Affiliation | 1041 | + + + | Race | Unknown | + + + | Ethnic Group | Unknown | + + + Author + + + | Author | [facility] | | | and [place] | + + + | Organization | [facility] | | | and [...] Team Providers + +------+ + | Care Business Solutions Architect Name | Role | Phone | + +------+ + | Tomasz Vu MD | PCP | | + +------+ + Reason for Visit + + + | Reason | Comments | + + + | Consultation | HUMAN RESOURCES ASSISTANT consult per javier MUNOZ | + + [...] | Required | | atrial | [address] | [address] | | | | | flutter | [address] | [address]VE [address] | | | | | ([facility]) | [place], | [address], | | | | | Procedures | [place] [address] | [place] [address] | | | | | 12/21> DOS | Phone: | Phone: | | | | | 12/17> PEND | [phone] | [phone] | | | | | [facility] - URGENT | Fax: | Fax: | | | | | REFERRAL TO | [phone] | [phone] | | | | | MARIAH | [...] | | 2019 | Office | CARDIOLOGY [facility] | MD [address] | flutter (HCC); Acute | | | Visit | [address] | [address] [place], | systolic congestive | | | | [address] | [place] [address] | heart failure | | | | [address] | [phone] | ([facility]); | | | | [phone] | | Methamphetamine use | | | | | | ([facility]) | +--------+ + + + + Social [...] through the use of telemedicine. Telemedicine enables [facility] care providers at different locations to provide [...] and underwent cardioversion in early November in [place]. He also underwent [facility] catheterization, where he was not found to [...] tolerated medical management as per the patient's seo specialist, Dr. Prabhjot wilson. The patient has not [...] tablet by mouth 2 times daily (at [facility] and bedtime). 60 tablet 0 potassium chloride [...] made to ensure accuracy; however, inadvertent computerized synthetic filament spinner errors may be pre sent. Total time spent on this visit was 40 minutes. This includes review of available records, discussing the case with other providers, placing orders, etc., and in discussion directly w ith the patient over phone or video. Electronically signed by: Oralia Diallo MD 12/18/2019 2:31 PM armen Vicente, Volleyball Player - 12/18/2019 2:00 PM PDTReview of Systems [...] Zoom for this visit. Preferred phone number: [phone] Medications and Allergies have been reviewed and updated Last OV: 12/17/19 Last EK12/17/19 Patient has had recent Cardiac testing/procedures: none Records are In [facility] Patient's most recent : Lipid Panel N/A, BMP/CMP 12/04/19 Lab report is In [facility] Recent Cardiac ED or Hospital Visits? none documented in this en counter Plan of Treatment +--------+ + + + + | Date | Type | Specialty | Care Team | Description | +--------+ + + + + | 12/30/ | Hospital | Radiology | Oralia Diallo, | Cardiomyopathy, | | 2019 | Encounter | | [address] | unspecified type | | | | | [address] [place], | ([facility]); [place], | | | | | [place] [address] | unspecified syncope | | | | | [phone] | type; Atrial | | | | | | flutter, unspecified | | | | | | type ([facility]) | +--------+ + + + + | 12/30/ | Surgery | Radiology | Oralia Diallo, | CV EP ABLATION AF | 2019 | | | [address] | | | | | | [address] [place], | | | | | | [place] [address] | | | | | | [phone] | | | | | | | | +--------+ + + + + | 01/14/ | Virtual | Cardiology | Andrew Gamboa, | | 2019 | Office | | MD Richie Leone | | | | Visit | | [place], | | | | | | [place] [address] | | | | | | [phone] | | | | | | | [...]
--- OUTSIDE RECORDS SUMMARY | ~2019-12-23 | XMS | Encounter Summary ---
Demographics + + + | Address | [address] | | | [place] [address] | + + + | Home Phone | | + + + | Preferred Language | Unknown | + + + | Marital Status | Single | + + + | Caodaism Affiliation | 1041 | + + + | Race | Unknown | + + + | Ethnic Group | Unknown | + + + Author + + + | Author | [facility] | | | and [place] | + + + | Organization | [facility] | | | and [place] | [...] Team Providers + +------+ + | Care Underground Heavy Equipment Operator Name | Role | Phone | + +------+ + | Tomasz Vu MD | PCP | | + +------+ + Encounter Details +--------+---------+ + + + | Date | Type | Department | Care Team | Description | +--------+---------+ + + + | 12/13/ | Surgery | [facility] | Andrew Gamboa, | CV LHC | | 2020 | | MED CTR CV INTRA OP | [address] | | | | | [address] | [address] [place], | | | | | [place] | [place] [address] | | | | | [address] | [phone] | | | | | [phone] | | | +--------+---------+ + + + [...] | Encounter | | MD Charity KING [facility] | unspecified type | | | | | [address], | ([facility]); [place], | | | | | [place] [address] | unspecified syncope | | | | | [phone] | type; Atrial | | | | | | flutter, unspecified | | | | | | type ([facility]) | +--------+ + + + + | 12/30/ | Surgery | Radiology | Colin Diallo, | CV EP ABLATION AF | 2019 | | | MD Char[address] | | | | | | [address], | | | | | | [place] [address] | | | | | | [phone] | | | | | | | | +--------+ + + + + | 01/14/ | Virtual | Cardiology | Andrew Gamboa, | | | 2019 | Office | | MD Richie [address] | | | | Visit | | [place], | | | | | | [place] [address] | | | | | | [phone] | | | | | | | [...] (1945) OF | | | PROCEDURE: 12/14/2019 FARMWORKER: Andrew Gamboa MD | | | PROCEDURES [...] sagittal and oblique projections. Apoorva Barnett, [facility] | | | diagnostic [...] moderate | | | sedation with continuous stao-tx-qoxn attendance. My intra-service | | | time [...] + + | Performing | Address | City/State/[place] [facility] | Phone Number | | Organization [...]
--- OUTSIDE RECORDS SUMMARY | ~2019-12-23 | XMS | Encounter Summary ---
Demographics + + + | Address | [address] | | | [place] [address] | + + + | Home Phone | | + + + | Preferred Language | Unknown | + + + | Marital Status | Single | + + + | Anglican Affiliation | 1041 | + + + | Race | Unknown | + + + | Ethnic Group | Unknown | + + + Author + + + | Author | [facility] | | | and [place] | + + + | Organization | [facility] | | | and [place] [...] Team Providers + +------+ + | Care Boat Pilot Name | Role | Phone | + +------+ + | Tomasz Vu MD | PCP | | + +------+ + Reason for Visit +--------+ + | Reason | Comments | +--------+ + | Other | appointment | +--------+ + Encounter Details +--------+ + + + + | Date | Type | Department | Care Team | Description | +--------+ + + + + | 12/15/ | Telephone | [facility] | Andrew Gamboa, | Other (appointment) | | 2020 | | CARDIOLOGY [address] | MD [address] [place] | | | | | [place], | [place], | | | | | [place] [address] | [place] [address] | | | | | [phone] | | | | | | | [...] | 2019 | Encounter | | [address] | unspecified type | | | | | [address] | ([facility]); [place], | | | | | [place] [address] | unspecified syncope | | | | | [phone] | type; Atrial | | | | | | flutter, unspecified | | | | | | type (HCC) | +--------+ + + + + | 12/30/ | Surgery | Radiology | Colin Dilalo, | CV EP ABLATION AF | 2019 | | | [address] | | | | | | [address], | | | | | | [place] [address] | | | | | | [phone] | | | | | | | | +--------+ + + + + | 01/14/ | Virtual | Cardiology | Andrew Gamboa, | | | 2019 | Office | | [address] [place] | | | | Visit | | [place], | | | | | | [place] [address] | | | | | | [phone] | | | | | | | | +--------+ + + + + documented as of this encounter Visit Diagnoses Not on filedocumented in this encounter"
--- OUTSIDE RECORDS SUMMARY | ~2019-12-23 | XMS | Encounter Summary ---
Demographics + + + | Address | [address] | | | [place] [address] | + + + | Home Phone | | + + + | Preferred Language | Unknown | + + + | Marital Status | Single | + + + | Presybeterian Affiliation | 1041 | + + + | Race | Unknown | + + + | Ethnic Group | Unknown | + + + Author + + + | Author | [facility] | | | and [place] | + + + | Organization | [facility] | | | and [...] Team Providers + +------+ + | Care Brewery Technician Name | Role | Phone | + +------+ + | Tomasz Vu MD | PCP | | + +------+ + Reason for Visit +--------+ + | Reason | Comments | +--------+ + | Other | Order for Maryl Cyril vest sent | +--------+ + Encounter Details +--------+ + + + + | Date | Type | Department | Care Team | Description | +--------+ + + + + | 12/03/ | Telephone | [facility] [place] | BeeAranzalam, | Other (Order for | | 2019 | | CARDIOLOGY [address] | MD [address] [place] | [employer] Life vest sent) | | | | [place], | [place], | | | | | [place] [address] | [place] [address] | | | | | [phone] | [phone] | | | | | | | [...] 2019 | Encounter | | MD Nash [address] | unspecified type | | | | | [address] [place], | ([facility]); [place], | | | | | [place] [address] | unspecified syncope | | | | | [phone] | type; Atrial | | | | | | flutter, unspecified | | | | | | type ([facility]) | +--------+ + + + + | 12/30/ | Surgery | Radiology | Colin Diallo, | CV EP ABLATION AF | 2019 | | | MD Nash [address] | | | | | | [address] [place], | | | | | | [place] [address] | | | | | | [phone] | | | | | | | | +--------+ + + + + | 01/14/ | Virtual | Cardiology | Andrew Gamboa, | | | 2019 | Office | | MD Richie Leone | | | | Visit | | [place], | | | | | | [place] [address] | | | | | | [phone] | | | | | | | | +--------+ + + + + documented as of this encounter Visit Diagnoses Not on filedocumented in this encounter"
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
--- OUTSIDE RECORDS SUMMARY | ~2019-12-23 | XMS | Encounter Summary ---
Demographics + + + | Address | [address] | | | [place] [address] | + + + | Home Phone [...] + | Organization | [facility] | | | and [...] Team Providers + +------+ + | Care Rubber Printing Machine Operator Name | Role | Phone | + +------+ + | Tomasz Vu MD | PCP | | + +------+ + Encounter Details +--------+ + + + + | Date | Type | Department | Care Team | Description | +--------+ + + + + | 12/03/ | [facility] | [facility] | Stephanie Ashby, PT | | | 2020 | Encounter | MED CTR ACUTE | | | | | | PHYSICAL THERAPY | | | | | | [address] | | | | | | [place] [address] | | | | | | [phone] | | | +--------+ + + + [...] 2019 | Encounter | | MD Nash [address] | unspecified type | | | | | [address] [place], [place] [address], | ([facility]); Syncope, | | | | | [place] [address] | unspecified syncope | | | | | [phone] | type; Atrial | | | | | | flutter, unspecified | | | | | | type ([facility]) | +--------+ + + + + | 12/30/ | Surgery | Radiology | Colin Diallo, | CV EP ABLATION AF | | 2019 | | | MD Nash [address] | | | | | | [address] [place], | | | | | | [place] [address] | | | | | | [phone] | | | | | | | | +--------+ + + + + | 01/14/ | Virtual | Cardiology | Andrew Gamboa, | | | 2019 | Office | | MD [address] | | | | Visit | | [place], | | | | | | [place] [address] | | | | | | [phone] | | | | | | | | +--------+ + + + + documented as of this encounter Visit Diagnoses Not on filedocumented in this encounter"
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
--- OUTSIDE RECORDS SUMMARY | ~2019-12-23 | XMS | Encounter Summary ---
Demographics + + + | Address | [address] | | | [place] [address] | + + + | Home Phone | | + + + | Preferred Language | Unknown | + + + | Marital Status | Single | + + + | Pentecostal Affiliation | 1041 | + + + | Race | Unknown | + + + | Ethnic Group | Unknown | + + + Author + + + | Author | [facility] | | | and [place] | + + + | Organization | [facility] | | | and [place] [...] Team Providers + +------+ + | Care Mold Closer Helper Name | Role | Phone | + +------+ + | Tomasz Vu MD | PCP | | + +------+ + Reason for Visit + + + | Reason | Comments | + + + | Hospital Follow-up | | + + + | Congestive Heart | | | Failure | | + + + | Atrial Fibrillation | flutter | + + + Evaluate & Treat (Routine) +--------+ + + + + + | Status | Reason | Specialty | Diagnoses / | Referred By | Referred To | | | | | Procedures | Contact | Contact | +--------+ + + + + + | Closed | Specialty | Cardiology | Diagnoses | Joseph, | Bee | | | [place] | | Acute | Heath Fang MD | MD Andrew | | | Required | | systolic | [address] | | | | | congestive | [address] | [address] | | | | | heart | [place], | [place], | | | | | failure | [place] [address] | [place] [address] | | | | | (FORMERLY [facility]) | Phone: | Phone: | | | | | | [phone] | [phone] | | | | | | Fax: | Fax: | | | | | | [phone] | [phone] | +--------+ + + + + + Encounter Details +--------+ + + + + | Date | Type | Department | Care Team | Description | +--------+ + + + + | 12/16/ | Virtual | [facility] [place] | Bee Lillianavenkatesh, | Acute systolic | | 2020 | Office | CARDIOLOGY [address] [place] | congestive heart | | | Visit | [place], | [place], | failure (HCC) | | | | [place] [address] | [place] [address] | (Primary Dx) | | | | [phone] | [phone] | | | | | | | [...] Height | 177.8 cm (5' 10") | 12/17/2019 3:02 PM | | | [...] of this encounter Patient Instructions Patient Instructions Miranda Platt RN - 12/17/2019 3:30 PM PDT Start taking Furosemide 40 mg daily. Start taking Potassium chloride 10 mg daily. Start taking Carvedilol 3.125 mg twice daily. Start taking Lipitor 20 mg nightly. Monitor your blood pressure and heart rate twice daily for two weeks and mail completed log back to us for review. You will need blood work in 7 days and again in 3 months. The blood work in 7 days will be non-fasting, the blood work in 3 months will be fasting 12 hours to check your cholesterol a nd liver function. Blood test: Date Due: 7 days/3 months Where to go for labs: Lab of your choice, please see lab orders, take them with you to the lab. Follow up appointment: 3-4 weeks virtual Provider: Andrew Gamboa MD Date: Check-In Time: documented in this encounter Progress Notes Andrew Gamboa MD - 12/17/2019 3:30 PM PDTFormatting of this note might be different f rom the original. PATIENT NAME: Esa Leigh : 1945: AGE: 74 y.o. REFERRED BY: No additional provider found PRIMARY CARE: Tomasz Vu MD NEW PATIENT OFFICE VISIT Date of Service: 12/17/19 HISTORY OF PRESENT ILLNESS: Esa Leigh is a 74 y.o. male with a history of paroxysmal atrial flutter and congestive h eart failure with reduced ejection fraction, coronary artery disease, frequent PVC's methamp hetamine use. He is being seen today for hospital follow up of a Left Heart Catheterization and angiogram. Patient was admitted to [facility] on 12/01/19 for atrial flutter and congestive heart failure with reduced ejection fraction. He was treated with lisinopril an d eventually discharged home. Later on, patient had a outpatient left Heart Catheterization on 12/14/2019 by Andrew brown, which revealed mild coronary artery disease. Moderately reduced LV systolic function wi th an EF of 30-35% Systemic blood pressure is normal. ]Today, patient is not getting any better. He is still having leg swelling and leg pain du e to the swelling. Patient is not physically active due to the leg swelling which is causin g pain. Patient enjoys walking in his spare time but has not been able to do this due to th e leg swelling. There is no chest pain or chest discomfort both at rest and on exertion. P atient denies breathlessness. There is no palpitation dizziness or lightheadedness. Patien t can sleep on one pillow at night without difficulty breathing. CURRENT PROBLEMS Patient Active Problem List Diagnosis Atrial flutter CHF (congestive heart failure) Methamphetamine use MEDICAL, SURGICAL, AND PERSONAL HISTORY Past Surgical History: Procedure Laterality Date CARDIAC CATHERIZATION N/A 12/14/2019 Procedure: CV LHC; Surgeon: Andrew Gamboa MD; Location: [facility] CV LAB CARDIAC CATHERIZATION N/A 12/14/2019 Procedure: CV Cor Angio; Surgeon: Andrew Gamboa MD; Location: [facility] CV LAB CARDIAC CATHERIZATION N/A 12/14/2019 Procedure: CV LV; Surgeon: Andrew Gamboa MD; Location: [facility] CV LAB CARDIOVERSION Family History Problem Relation Age of Onset Heart disease Mother Heart disease Father Heart disease Brother Family Status Relation Name Status Mother Father Brother (Not Specified) Social History Socioeconomic History Marital status: Single Spouse name: Not on file Number of children: Not on file Years of education: Not on file Highest education level: Not on file Tobacco Use Smoking status: Never Smoker Smokeless tobacco: Never Used Substance and Sexual Activity Alcohol use: Not Currently Drug use: Not Currently Types: Methamphetamines CURRENT MEDICATIONS Current Outpatient Medications Medication Sig Dispense Refill amiodarone (PACERONE) 200 mg tablet 2 tablets twice a day for 6 days then reduce dose t o 1 tablet once a day by mouth 100 tablet 0 apixaban (ELIQUIS) 5 mg tablet Take 1 tablet by mouth 2 times daily. Indications: Atria l Fibrillation (Patient not taking: Reported on 12/16/2019) 60 tablet 0 aspirin 81 MG EC [...] tablet by mouth 2 times daily (at [facility] and bedtime). 60 tablet 0 potassium chloride (KLOR-CON) 10 mEq CR tablet Take 1 tablet by mouth Daily. 90 tablet 3 UNCODED DME Blood pressure kit for home monitoring check BP twice a day and prn 1 each 0 UNCODED DME Finger Oximeter for home use check twice a day and prn 1 each 0 No current facility-administered medications for this visit. ALLERGIES No Known Allergies ROS Review of Systems Constitutional: Positive for malaise/fatigue and weight loss. Negative for chills, diaphore sis and fever. HENT: Negative for congestion, hearing loss, nosebleeds and tinnitus. Dental Problems = No Eyes: Negative for blurred vision and double vision. Respiratory: Negative for shortness of breath. Cardiovascular: Positive for leg swelling. Negative for chest pain and palpitations. Gastrointestinal: Positive for diarrhea. Negative for blood in stool, constipation, nausea and vomiting. Genitourinary: Positive for urgency. Negative for dysuria, frequency and hematuria. Musculoskeletal: Negative for back pain, falls, joint pain, myalgias and neck pain. Gait Problems = No Skin: Negative for itching and rash. Neurological: Positive for weakness. Negative for dizziness, tingling, tremors, speech iwllis ge, seizures and loss of consciousness. Lightheaded = No Endo/Heme/Allergies: Does not bruise/bleed easily. Psychiatric/Behavioral: Negative for memory loss. The patient is not nervous/anxious and do es not have insomnia. OBJECTIVE: PHYSICAL EXAM BP 139/69 Comment: pt took blood pressure with home monitor | Pulse 91 | Ht 1.778 m (5' 10 ") | Wt 74.6 kg (164 lb 8 oz) | BMI 23.60 kg/m Physical Exam Constitutional: He is oriented to person, place, and time. He appears well-developed and we ll-nourished. No distress. Neck: Normal carotid pulses, no hepatojugular reflux and no JVD present. Carotid bruit is n ot present. Cardiovascular: Normal rate, regular rhythm, S1 normal, S2 normal, normal heart sounds, int act distal pulses and normal pulses. PMI is not displaced. Exam reveals no gallop, no S3, no S4 and no friction rub. No murmur heard. Pulses: Carotid pulses are 2+ on the right side and 2+ on the left side. Dorsalis pedis pulses are 2+ on the right side and 2+ on the left side. Pulmonary/Chest: Effort normal and breath sounds normal. No accessory muscle usage. No resp iratory distress. He has no wheezes. He has no rhonchi. He has no rales. Abdominal: Normal appearance, normal aorta and bowel sounds are normal. He exhibits no abdo janell bruit. There is no hepatosplenomegaly. There is no abdominal tenderness. Musculoskeletal: General: Edema present. Tenderness: 2+ on bilateral leg. Neurological: He is alert and oriented to person, place, and time. Gait normal. Skin: Skin is warm and dry. Psychiatric: He has a normal mood and affect. His mood appears not anxious. He does not exh ibit a depressed mood. LAB RESULTS: LIPID No results found for: CHOL, TRIG, HDL, LDL, CHOLHDL, LDLEX, HDLEX, TRIGEX, CHOLEX CHEMISTRY Lab Results Component Value Date GLU 97 12/04/2019 NA 134 (L) 12/04/2019 K 3.9 12/04/2019 CL 100 12/04/2019 CO2 27 12/04/2019 CALCIUM 8.1 (L) 12/04/2019 CREA 0.93 12/04/2019 BUN 33 (H) 12/04/2019 HEMATOLOGY Lab Results Component Value Date WBC 11.7 (H) 12/03/2019 HGB 12.8 (L) 12/03/2019 HCT 37.5 (L) 12/03/2019 PLT 350 12/03/2019 I reviewed records from [facility] for hospitalization,including H& P, Discharge Summary and lab reports on 12/14/2019. ASSESSMENT: 1.Typical atrial flutter with rapid ventricular response A. Hewas in his usual state of health until 12/01/19, when he was s een at [facility] for increased fatigueand feeling weak.EKG shows atrial flutt er with rapid ventricular response and he was given intravenous diltiazem . He was then spain sferred to [facility] for higher level of care. Patient states he was having leg sw elling for the past 3 weeks. B. ANDI 12/02/2019 shows mild left atrial dilatation, normal left atrial appendage without thrombus seen, normal left ventricular size and wall thickness with a mod erate global hypokinesis of the left ventricle, left ventricular significant is moderately d ecreased,LVEF 30 to 35%, thickened and calcified mitral valve suggesting myxomatous change with a mild mitral valve regurgitation. C.Successful DC cardioversion, no apparent complicationson 2019 Sole Gamboa MD. amiodarone was initiated. D. Today, 12/17/2019, he is on rhythm control with amiodarone. His a trial fibrillation is well controlled and does not require medication adjustment. He is on a rhythm control strategy. Hisrisks for stroke include: Age 65 to 74 (1).[id number]-JSCn score is 1, which gives an estimated 1.3%risk of stroke per year in atrial fibrillation. Hisbleeding risks include: >64 YO (1).HisHASBLED score is 0-1, which confers a low risk (1-3.4%)risk of bleed per year.He is on Lovenox at this time. 2.Heart failure with reduced ejection fraction A. Echocardiogram [...] measuring 4.4 cm in diameter. B. Today, 12/17/2019, he is asymptomatic. He is on a heart failure m edical regimen including GLENDA-I. He is not currently on a diuretic but I believe he will bene fit from taking a diuretc daily. He would benefit from up-titration of heart failure medicat ion at this time. He appears to be fluid overloaded. He is in class II NYHA functional class. He is in sta ge C heart failure. 3. Noncritical coronary artery disease A. Nuclear stress test 12/03/2019 shows persantine EKG is nondiagnostic due to ab normal underlying EKG, abnormal persantine sestamibi myocardial perfusion imaging study with a medium size, partially reversible defect of the inferior and inferoseptal region, finding s suggest a potential partial myocardial ischemia of the right coronary territory, there is a moderate global hypokinesis of the left ventricle, left ventricular systolic function is m oderately decreased, LVEF by gated SPECT at 33%. B. Left Heart catheterization on 12/14/2019: By Dr Andrew Gamboa MD Mild coronary arter y disease as detailed above. There is a right dominate circulation. Moderately reduced LV s ystolic function with an EF of 30-35%. C. Today, 12/17/2019, he is asymptomatic, no chest discomfort. He is on a medical regimen w ith aspirin and GLENDA-I 4. Frequent PVC's Not otherwise addressed today 12/17/2019. A. Telemetry shows very frequent PVC's. Patient is asymptomatic at this time, h e denies any palpitations. 5. Methamphetamine use. Not otherwise addressed today 12/17/2019. PLAN: 1. I spend time at length talking about natural course, treatment and prognosis of ramone santiago 2. He will start Lasix 40 mg by mouth daily to help with the leg swelling. 3. He will start Potassium Chloride 10 mEq once a day. 4. He will check blood pressure and pulse twice daily for two weeks and return the log to o ur office. 5. He will start Carvedilol 3.125 mg twice daily treat heart failure with reduced ejection fraction. 6. He will continue Lipitor 20 mg twice a day. Patient has history of CAD. Guidelines rec ommend high intensity statin. 7. He will follow up in 3 weeks for office visit or sooner with concerns to uptitrate GLENDA i nhibitor and beta-joss. Of note, this visit was done virtually. I, Shanna Doan, am acting as a scribe on behalf of, and in the presence of Andrew brown MD. I have reviewed and edited this note. Barbara Berry, Paramedical Aide 12/17/2019 I, Andrew Gamboa MD, personally performed the services described in this documentation, as scribed in my presence and it is both accurate and complete. Barbara Berry, Paramedical Aide 4:02 PM Electronically signed by: Andrew Gamboa MD [facility] 12/17/2019 Portions of this chart may have been created with [employer] voice recognition software. Occasi onal wrong-word or sound-alike substitutions may have occurred due to the inherent pulliam itations of voice recognition software. Please read the chart carefully and recognize, using context, where these substitutions have occurred. documented in this encounter Plan of Treatment +--------+ + + + + | Date | Type | Specialty | Care Team | Description | +--------+ + + + + | 12/30/ | Hospital | Radiology | Colin Diallo, | Cardiomyopathy, | 2019 | Encounter | | [address] | unspecified type | | | | | [address] [place] | ([facility]); [place], | | | | | [place] [address] | unspecified syncope | | | | | [phone] | type; Atrial | | | | | | flutter, unspecified | | | | | | type ([facility]) | +--------+ + + + + | 12/30/ | Surgery | Radiology | Colin Diallo, | CV EP ABLATION AF | | 2019 | | | [address] | | | | | | [address] [place], | | | | | | [place] [address] | | | | | | [phone] | | | | | | | | +--------+ + + + + | 01/14/ | Virtual | Cardiology | Andrew Gamboa, | | | 2019 | Office | | [address] [facility] | | | | Visit | | [place], | | | | | | [place] [address] | | | | | | [phone] | | | | | | | | +--------+ + + + + + +------+--------+ + + | Name | Type | Priori | Associated Diagnoses | Order Schedule | | | | ty | | | + +------+--------+ + + | Basic Metabolic | Lab | Routin | Acute systolic | Expected: | | Panel | | e | congestive heart | 03/17/2020, Expires: | | | | | failure (HCC) | 12/16/2020 | + +------+--------+ + + | Lipid Panel | Lab | Routin | Acute systolic | Expected: | | | | e | congestive heart | 03/17/2020, Expires: | | | | | failure (HCC) | 12/16/2020 | + +------+--------+ + + | Hepatic Function | Lab | Routin | Acute systolic | Expected: | | Panel | | e | congestive heart | 12/17/2019, Expires: | | | | | failure (HCC) | 12/16/2020 | + +------+--------+ + + documented as of this encounter Visit Diagnoses + + | Diagnosis | + + | Acute systolic congestive heart failure (HCC) - Primary Acute systolic heart failure | + + documented in this encounter
--- OUTSIDE RECORDS SUMMARY | ~2019-12-23 | XMS | Encounter Summary ---
Demographics + + + | Address | [address] | | | [place] [address] | + + + | Home Phone | | + + + | Preferred Language | Unknown | + + + | Marital Status | Single | + + + | Baptism Affiliation | 1041 | + + + | Race | Unknown | + + + | Ethnic Group | Unknown | + + + Author + + + | Author | [facility] | | | and [place] | + + + | Organization | [facility] | | | and [...] Team Providers + +------+ + | Care Environmental Construction Engineer Name | Role | Phone | [...] | [address] [place] | | ([facility]) | | | | [place] [address] | | | | | | [phone] | | | +--------+ + + + [...] | | | [address] [place], | ([facility]); [place], | | | | | [place] [address] | unspecified syncope | | | | | [phone] | type; Atrial | | | | | | flutter, unspecified | | | | | | type ([facility]) | +--------+ + + + + | 12/30/ | Surgery | Radiology | Colin Diallo, | CV EP ABLATION AF | | 2019 | | | [address] | | | | | | [address] [place], | | | | | | [place] [address] | | | | | | [phone] | | | | | | | | +--------+ + + + + | 01/14/ | Virtual | Cardiology | Andrew Gamboa, | | 2019 | Office | | MD [place] | | | | Visit | | [place], | | | | | | [place] [address] | | | | | | [phone] | | | | | | | | +--------+ + + + + documented as of this encounter Results EP CARDIOVERSION (12/02/2019 1:45 PM PDT) + + + | Narrative | Performed At | + + + | Andrew Gamboa MD 12/02/2019 1:45 PM CARDIOVERSION | [facility] | | REPORT PATIENT NAME/: Esa Leigh, (1945) | [facility] | | DATE OF PROCEDURE: 12/02/2019 | [facility] | | VETERINARIAN HELPER: Andrew Gamboa MD Procedures | - IMAGING [...] ST. | [address] | [place] | [phone] | | [facility] | | [address] | | | - IMAGING | | | | + + + + + documented in this encounter Visit Diagnoses + + | Diagnosis | + + | Atrial flutter, unspecified type (HCC) | + + documented in this encounter"
--- OUTSIDE RECORDS SUMMARY | ~2019-12-23 | XMS | Encounter Summary ---
Demographics + + + | Address | [address] | | | [place] [address] | + + + | Home Phone | | + + + | Preferred Language | Unknown | + + + | Marital Status | Single | + + + | Rastafari Affiliation | 1041 | + + + | Race | Unknown | + + + | Ethnic Group | Unknown | + + + Author + + + | Author | [facility] | | | and [place] | + + + | Organization | [facility] | | | and [...] Team Providers + +------+ + | Care Heel Cementer Machine Name | Role | Phone | + +------+ + | Tomasz Vu MD | PCP | | + +------+ + Reason for Visit + + + | Reason | Comments | + + + | Appointment | Virtual Facetime | + + + Encounter Details +--------+ + + + + | Date | Type | Department | Care Team | Description | +--------+ + + + + | 12/14/ | Telephone | [facility] | Colin Diallo, | Appointment (Virtual | | 2019 | | CARDIOLOGY [facility] | MD [address] | Facetime) | | | | [address] | [address] [place], | | | | | [place] [address] [place], [place] | [place] [address] | | | | | [address] | [phone] | | | | | [phone] | | | +--------+ + + + [...] 2019 | Encounter | | MD [place] [address] | unspecified type | | | | | [address] [place], | ([facility]); [place], | | | | | [place] [address] | unspecified syncope | | | | | [phone] | type; Atrial | | | | | | flutter, unspecified | | | | | | type ([facility]) | +--------+ + + + + | 12/30/ | Surgery | Radiology | Colin Diallo, | CV EP ABLATION AF | | 2019 | | | MD [place] [address] | | | | | | [address] [place], | | | | | | [place] [address] | | | | | | [phone] | | | | | | | | +--------+ + + + + | 01/14/ | Virtual | Cardiology | Andrew Gamboa, | | | 2019 | Office | | MD [place] | | | | Visit | | [place], | | | | | | [place] [address] | | | | | | [phone] | | | | | | | | +--------+ + + + + documented as of this encounter Visit Diagnoses Not on filedocumented in this encounter"
--- OUTSIDE RECORDS SUMMARY | ~2019-12-23 | XMS | Encounter Summary ---
Demographics + + + | Address | [address] | | | [place] [address] | + + + | Home Phone | | + + + | Preferred Language | Unknown | + + + | Marital Status | Single | + + + | Hinduism Affiliation | 1041 | + + + | Race | Unknown | + + + | Ethnic Group | Unknown | + + + Author + + + | Author | [facility] | | | and [place] | + + + | Organization | [facility] | | | [...] Team Providers + +------+ + | Care Slumber Room Attendant Name | Role | Phone | + +------+ + | Tomasz Vu MD | PCP | | + +------+ + Encounter Details +--------+ + + + + | Date | Type | Department | Care Team | Description | +--------+ + + + + | 12/13/ | [facility] | [facility] | Andrew Gamboa, | Typical atrial | | 2019 | Encounter | MED CTR CV INTRA OP | MD [place] | flutter (HCC); Acute | | | | [address] | [place], | systolic congestive | | | | [place], [place] | [place] [address] | heart failure (HCC) | | | | [address] | [phone] | | | | | [phone] | | | +--------+ + + + [...] 2019 | Encounter | | MD [place] [address] | unspecified type | | | | | [address] [place], | ([facility]); [place], | | | | | [place] [address] | unspecified syncope | | | | | [phone] | type; Atrial | | | | | | flutter, unspecified | | | | | | type ([facility]) | +--------+ + + + + | 12/30/ | Surgery | Radiology | Colin Diallo, | CV EP ABLATION AF | 2019 | | | MD [place] [address] | | | | | | [address] [place], | | | | | | [place] [address] | | | | | | [phone] | | | | | | | | +--------+ + + + + | 01/14/ Virtual | Cardiology | IsmaAndrew dawn, | | | 2019 | Office | | MD [place] | | | | Visit | | [place], | | | | | | [place] [address] | | | | | | [phone] | | | | | | | [...] (1945) OF | | | PROCEDURE: 12/14/2019 PARAPROFESSIONAL AIDE: Andrew Gamboa MD | | | PROCEDURES [...] moderate | | | sedation with continuous [id number] attendance. My intra-service | | | time [...] + + | Performing | Address | City/[facility] | Phone Number | | [...]
--- OUTSIDE RECORDS SUMMARY | ~2019-12-23 | XMS | Encounter Summary ---
Demographics + + + | Address | [address] | | | [place] [address] | + + + | Home Phone | | + + + | Preferred Language | Unknown | + + + | Marital Status | Single | + + + | Christianity Affiliation | 1041 | + + + | Race | Unknown | + + + | Ethnic Group | Unknown | + + + Author + + + | Author | [facility] | | | and [place] | + + + | Organization | [facility] | | | and [place] [...] Team Providers + +------+ + | Care Forensic Scientist Name | Role | Phone | + [...] | 12/06/ | Telephone | [facility] [place] | Andrew Gamboa, | Other (plan of care) | | 2020 | | CARDIOLOGY [address] | MD [address] | | | | | [place], | [place], | | | | | [place] [address] | [place] [address] | | | | | [phone] | | | | | | | [...] 2019 | Encounter | | MD [place] [address] | unspecified type | | | | | [address] [place], | ([facility]); [place], | | | | | [place] [address] | unspecified syncope | | | | | [phone] | type; Atrial | | | | | | flutter, unspecified | | | | | | type ([facility]) | +--------+ + + + + | 12/30/ | Surgery | Radiology | Colin Diallo, | CV EP ABLATION AF | 2019 | | | MD [place] [address] | | | | | | [address] [place], | | | | | | [place] [address] | | | | | | [phone] | | | | | | | | +--------+ + + + + | 01/14/ | Virtual | Cardiology | Andrew Gamboa, | | | 2019 | Office | | MD [place] | | | | Visit | | [place], | | | | | | [place] [address] | | | | | | [phone] | | | | | | | | +--------+ + + + + documented as of this encounter Visit Diagnoses Not on filedocumented in this encounter"
--- OUTSIDE RECORDS SUMMARY | ~2019-12-23 | XMS | Encounter Summary ---
Demographics + + + | Address | [address] | | | [place] [address] | + + + | Home Phone | | + + + | Preferred Language | Unknown | + + + | Marital Status | Single | + + + | Mandaen Affiliation | 1041 | + + + | Race | Unknown | + + + | Ethnic Group | Unknown | + + + Author + + + | Author | [facility] | | | and [place] | + + + | Organization | [facility] | | | and [place] [...] Team Providers + +------+ + | Care Hedge Fund Manager Name | Role | Phone | + [...] (Virtual | | 2019 | | CARDIOLOGY [facility] | MD [address] | Facetime) | | | | [address] | [address] [place], | | | | | [place] [address] [place], [place] | [place] [address] | | | | | [address] | [phone] | | | | | [phone] | | | +--------+ + + + [...] 2019 | Encounter | | MD Nash [address] | unspecified type | | | | | [address] [place], | ([facility]); [place], | | | | | [place] [address] | unspecified syncope | | | | | [phone] | type; Atrial | | | | | | flutter, unspecified | | | | | | type ([facility]) | +--------+ + + + + | 12/30/ | Surgery | Radiology | Colin Diallo, | CV EP ABLATION AF | | 2019 | | | MD Nash [address] | | | | | | [address] [place], | | | | | | [place] [address] | | | | | | [phone] | | | | | | | | +--------+ + + + + | 01/14/ | Virtual | Cardiology | Andrew Gamboa, | | | 2019 | Office | | MD Richie Leone | | | | Visit | | [place], | | | | | | [place] [address] | | | | | | [phone] | | | | | | | | +--------+ + + + + documented as of this encounter Visit Diagnoses Not on filedocumented in this encounter"
--- OUTSIDE RECORDS SUMMARY | ~2019-12-23 | XMS | Encounter Summary ---
Demographics + + + | Address | [address] | | | [place] [address] | + + + | Home Phone | | + + + | Preferred Language | Unknown | + + + | Marital Status | Single | + + + | Mormon Affiliation | 1041 | + + + | Race | Unknown | + + + | Ethnic Group | Unknown | + + + Author + + + | Author | [facility] | | | and [place] | + + + | Organization | [facility] | | | and [...] Team Providers + +------+ + | Care Shirt Cleaner Name | Role | Phone | + [...] | [address] | [place] [address] | | | | | [place] [address] | | | | | | [phone] | | | +--------+ + + + [...] | 2020 | Encounter | | [address] | unspecified type | | | | | [address] [place] | ([facility]); [place], | | | | | [place] [address] | unspecified syncope | | | | | [phone] | type; Atrial | | | | | | flutter, unspecified | | | | | | type (HCC) | +--------+ + + + + | 12/30/ | Surgery | Radiology | Colin Diallo, | CV EP ABLATION AF | | 2019 | | | [address] | | | | | | [address] [place], | | | | | | [place] [address] | | | | | | [phone] | | | | | | | | +--------+ + + + + | 01/14/ | Virtual | Cardiology | Andrew Gamboa, | | | 2019 | Office | | [address] [facility] | | | | Visit | | [place], | | | | | | [place] [address] | | | | | | [phone] | | | | | | | [...]
--- OUTSIDE RECORDS SUMMARY | ~2019-12-23 | XMS | Encounter Summary ---
Demographics + + + | Address | [address] | | | [place] [address] | + + + | Home Phone | | + + + | Preferred Language | Unknown | + + + | Marital Status | Single | + + + | Yarsanism Affiliation | 1041 | + + + | Race | Unknown | + + + | Ethnic Group | Unknown | + + + Author + + + | Author | [facility] | | | and [place] | + + + | Organization | [facility] | | | and [place] | + + + | Address | Unknown | + + + | Phone | Unavailable | + + + Support + + +---------+ + | Name | Relationship | Address | Phone | + + +---------+ + | Jyoti Fya | ECON | Unknown | | + + +---------+ + Care Team Providers + +------+ + | Care Florist Supplies Salesperson Name | Role | Phone | + [...] | | | [address] | [facility] [address] | | | | | [place] [address] | | | | | | [phone] | | | +--------+ + + + [...] | 2020 | Encounter | | [address] | unspecified type | | | | | [address] [place] | ([facility]); [place], | | | | | [place] [address] | unspecified syncope | | | | | [phone] | type; Atrial | | | | | | flutter, unspecified | | | | | | type (HCC) | +--------+ + + + + | 12/30/ | Surgery | Radiology | Colin Diallo, | CV EP ABLATION AF | | 2019 | | | [address] | | | | | | [address] [place], | | | | | | [place] [address] | | | | | | [phone] | | | | | | | | +--------+ + + + + | 01/14/ | Virtual | Cardiology | Andrew Gamboa, | | | 2019 | Office | | [address] [facility] | | | | Visit | | [place], | | | | | | [place] [address] | | | | | | [phone] | | | | | | | [...]
--- OUTSIDE RECORDS SUMMARY | ~2019-12-23 | XMS | Encounter Summary ---
Demographics + + + | Address | [address] | | | [place] [address] | + + + | Home Phone | | + + + | Preferred Language | Unknown | + + + | Marital Status | Single | + + + | Amish Affiliation | 1041 | + + + | Race | Unknown | + + + | Ethnic Group | Unknown | + + + Author + + + | Author | [facility] | | | and [place] | + + + | Organization | [facility] | | | and [place] [...] Providers + +------+ + | Care Supervisor [place] Name | Role | Phone | + [...] | | | | | congestive | [address] | [address] | | | | | heart | [place], | [place], | | | | | failure | [place] [address] | [place] [address] | | | | | (HCC) | Phone: | Phone: | | | | | | [phone] | [phone] | | | | | | Fax: | Fax: | | | | | | [phone] | [phone] | +--------+ + + + + + Encounter Details +--------+ + + + + | Date | Type | Department | Care Team | Description | +--------+ + + + + | 12/15/ | Virtual | [facility] [place] | Andrew Gamboa, | Typical atrial | | 2020 | Office | CARDIOLOGY [address] | MD [address] | flutter (HCC) | | | Visit | [place], | [place], | (Primary Dx) | | | | [place] [address] | [place] [address] | | | | | [phone] | [phone] | | | | | | | [...] | 2019 | Encounter | | [address] | unspecified type | | | | | [address] [place] | ([facility]); [place], | | | | | [place] [address] | unspecified syncope | | | | | [phone] | type; Atrial | | | | | | flutter, unspecified | | | | | | type ([facility]) | +--------+ + + + + | 12/30/ | Surgery | Radiology | Colin Diallo, | CV EP ABLATION AF | 2019 | | | [address] | | | | | | [address] [place], | | | | | | [place] [address] | | | | | | [phone] | | | | | | | | +--------+ + + + + | 01/14/ | Virtual | Cardiology | Andrew Gamboa, | | | 2019 | Office | | [address] | | | | Visit | | [place], | | | | | | [place] [address] | | | | | | [phone] | | | | | | | [...]
--- OUTSIDE RECORDS SUMMARY | ~2019-12-23 | XMS | Encounter Summary ---
Demographics + + + | Address | [address] | | | [place] [address] | + + + | Home Phone | | + + + | Preferred Language | Unknown | + + + | Marital Status | Single | + + + | Yazidism Affiliation | 1041 | + + + | Race | Unknown | + + + | Ethnic Group | Unknown | + + + Author + + + | Author | [facility] | | | and [place] | + + + | Organization | [facility] | [...] Team Providers + +------+ + | Care Dag Coater Name | Role | Phone | + [...] | | | | | congestive | [address] | [address] 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, | failure (HCC) | | | | [place] [address] | [place] [address] | (Primary Dx) | | | | [phone] | [phone] | | | | | | | [...] Catheterization and angiogram. Patient was admitted to [facility] on 12/01/19 for atrial flutter [...] CV LHC; Surgeon: Andrew Gamboa MD; Location: [facility] CV LAB CARDIAC CATHERIZATION N/A 12/14/2019 Procedure: CV Cor Angio; Surgeon: Andrew Gamboa MD; Location: [facility] CV LAB CARDIAC CATHERIZATION N/A 12/14/2019 Procedure: CV LV; Surgeon: Andrew Gamboa MD; Location: [facility] CV LAB CARDIOVERSION Family History Problem Relation [...] tablet by mouth 2 times daily (at [facility] and bedtime). 60 tablet 0 potassium chloride [...] weakness. Negative for dizziness, tingling, tremors, speech willis ge, seizures and loss of consciousness. Lightheaded [...] PLT 350 12/03/2019 I reviewed records from [facility] for hospitalization,including H& P, Discharge Summary and lab reports on 12/14/2019. ASSESSMENT: 1.Typical atrial flutter with rapid ventricular response A. Hewas in his usual state of health until 12/01/19, when he was s een at [facility] ER for increased fatigueand feeling weak.EKG shows atrial flutt er with rapid ventricular response and he was given intravenous diltiazem . He was then [place] sferred to [facility] for higher level of care. [...] for stroke include: Age 65 to 74 (1).ErkISO5RB3-VJMq score is 1, which gives an estimated [...] reviewed and edited this note. Barbara Berry, Dress Operator 12/17/2019 I, Andrew Gamboa MD, personally performed the services described in this documentation, as scribed in my presence and it is both accurate and complete. Barbara Berry, Dress Operator 4:02 PM Electronically signed by: nAdrew Gamboa MD [facility] 12/17/2019 Portions of this chart may have been created with StatusPage voice recognition software. Occasi onal wrong-word or [...] | | | [address] [place] | ([facility]); [place], | | | | | [place] [address] | unspecified syncope | | | | | [phone] | type; Atrial | | | | | | flutter, unspecified | | | | | | type ([facility]) | +--------+ + + + + | 12/30/ | Surgery | Radiology | Colin Diallo, | CV EP ABLATION AF | | 2019 | | | [address] | | | | | | [address] [place], | | | | | | [place] [address] | | | | | | [phone] | | | | | | | | +--------+ + + + + | 01/14/ | Virtual | Cardiology | Andrew Gamboa, | | | 2019 | Office | | [address] [facility] | | | | Visit | | [place], | | | | | | [place] [address] | | | | | | [phone] | | | | | | | [...]
--- OUTSIDE RECORDS SUMMARY | ~2019-12-23 | XMS | Clinical Summary ---
Demographics + + + | Address | [address] | | | [place] [address] | + + + | Home Phone | | + + + | Preferred Language | Unknown | + + + | Marital Status | Single | + + + | Tenriism Affiliation | 1041 | + + + | Race | Unknown | + + + | Ethnic Group | Unknown | + + + Author + + + | Author | [facility] | | | and [place] | + + + | Organization | [facility] | | | and [...] Team Providers + +------+ + | Care Fuel Truck Driver Name | Role | Phone | [...] management as per the patient's | | grid trimmer, Dr. Gamboa. The patient has not been [...] Dysuria | | 2020 | | | GEOTECHNICAL FIELD TECHNICIAN | | +--------+ + + + + [...] | Office | | MD | flutter ([facility]) | | | Visit | | | [...] type | | | | | | ([facility]) (Primary Dx) | +--------+ + + + + | 11/30/ | Hospital | | Ovidio Ansari, | Atrial flutter, | | 2019 - | Encounter | | MD Heath Ruiz, | unspecified type | | | | | MD | ([facility]); Typical | | 12/03/ | | | | atrial flutter | | 2019 | | | | ([facility]); Acute | | | | | | systolic congestive | | | | | | heart failure ([facility]) | +--------+ + + + + [...] | 2019 | Encounter | | [address] | unspecified type | | | | | [address] [place], | ([facility]); [place], | | | | | [place] [address] | unspecified syncope | | | | | [phone] | type; Atrial | | | | | | flutter, unspecified | | | | | | type ([facility]) | +--------+ + + + + | 12/30/ | Surgery | Radiology | Colin Diallo, | CV EP ABLATION AF | | 2019 | | | [address] | | | | | | [address] [place], | | | | | | [place] [address] | | | | | | [phone] | | | | | | | | +--------+ + + + + | 01/14/ | Virtual | Cardiology | Andrew Gamboa, | | | 2019 | Office | | MD [address]ie [address] | | | | Visit | | [place], | | | | | | [place] [address] | | | | | | [phone] | | | | | | | [...] the | | | | PDT | ([facility]) | results section. | + +--------+ + [...] (1945) OF | | | PROCEDURE: 12/14/2019 HOT STICK WORKER: Andrew Gamboa MD | | | PROCEDURES [...] moderate | | | sedation with continuous kpeb-vm-dphd attendance. My intra-service | | | time [...] [address] | [place] | [phone] | | [facility] | | [address] | | | - LABORATORY | | [...] + | [facility] | [address] | [place] | [phone] | | [facility] | | [address] | | | - LABORATORY | | [...] | | | | mmol/L | [facility] | | | | | | [...] mL/min/1.73m2 | [facility] | | | [facility] | RATE,ESTIMATED | | MEDICAL | | | | mL/min/1.17d8Yycw than | | CENTER - | | [...] ST. | [address] | [place], [place] | [phone] | | [facility] | | [address] | | | - LABORATORY | | [...] + | [facility] | [address] | [place] | [phone] | | [facility] | | [address] | | | - LABORATORY | | [...] | | | | | HEIDI EPPERSON ([id number]) on | | | | | | [...] REPORT PATIENT NAME/: Esa Leigh, (1945) | [facility] | | DATE OF PROCEDURE: 12/02/2019 | [facility] | | HOT STICK WORKER: Andrew Gamboa MD Procedures | - IMAGING [...] [address] | [place] | [phone] | | [facility] | | [address] | | | - IMAGING | | [...] | | | | | | n [place] | | | | | + + [...] | | | | | | [place] | | | | | + + [...] | | | | | | [employer] | | | | | [...] + | [facility] | [address] | [place] | [phone] | | [facility] | | [address] | | | - LABORATORY | | [...] | | | | g/dL | [facility] | | | | | | MEDICAL [...] [address] | [place] | [phone] | | [facility] | | [address] | | | - LABORATORY | | | | + + + + + Hemoglobin A1C (12/01/2019 7:40 PM PDT) + +-------+ + + + | Component | Value | Ref Range | Performed | Pathologist | | | | | At | Signature | + +-------+ + + + | Hemoglobin | 6.0 | 4.3 - 6.0 % | [facility] | | | A1c | | | [facility] | | | | | | MEDICAL | | | | | | CENTER - | | | | | | LABORATORY | | + +-------+ + + + | Estimated | 126 | mg/dL | [place] | | | Average | | | [...] [address] | [place] | [phone] | | [facility] | | [address] | | | - LABORATORY | | [...] (H) | 60 - 106 mg/dL | [facility] | | | | | | [facility] | | | | | | MEDICAL | | | | | | CENTER - | | | | | | LABORATORY | | + + + + + + | BUN | 26 (H) | 9 - 23 mg/dL | [facility] | | | | | | [facility] | | | | | | MEDICAL | | | | | | CENTER - | | | | | | LABORATORY | | + + + + + + | Creatinine | 0.74 | 0.70 - 1.30 | [facility] | | | | | mg/dL | [facility] | | | | | | MEDICAL | | | | | | CENTER - | | | | | | LABORATORY | | + + + + + + | eGFR if not | >60Comment: GLOMERULAR | >=60 | [facility] | | | | FILTRATION | mL/min/1.73m2 | [facility] | | | [facility] | RATE,ESTIMATED | | MEDICAL | | | | mL/min/1.10y9Baiu than | | CENTER - | | [...] [address] | [place] | [phone] | | [facility] | | [address] | | | - LABORATORY | | [...] + | [facility] | [address] | [place] | [phone] | | [facility] | | [address] | | | - LABORATORY | | [...] +--------+ +---------+--------+ | MEDICARE | MEDICA | [id number] | 08/26/19 | [phone] | | Medica | | | RE | | 20-Pre | 5 | | re | | | PART A | | sent | | | | | | AND B | | | | | | + +--------+ +--------+ +---------+--------+ | [facility] | IHS | [id number] | 11/25/19 | | | Indemn | [...] | 1945 | [phone] | [place] [address] | | | ankush | | | 9 (Home) | | + +--------+ +--------+ + + Advance Directives + + + + + | Type | Date Recorded | Patient | Explanation | | | | Tack Puller | | + + + + + | Power of | | | | | Payroll Administrative Assistant | | | | + + + [...]
--- OUTSIDE RECORDS SUMMARY | ~2019-12-23 | XMS | Encounter Summary ---
Demographics + + + | Address | [address] | | | [place] [address] | + + + | Home Phone | | + + + | Preferred Language | Unknown | + + + | Marital Status | Single | + + + | Samaritan Affiliation | 1041 | + + + | Race | Unknown | + + + | Ethnic Group | Unknown | + + + Author + + + | Author | [facility] | | | and [place] | + + + | Organization | [facility] [...] Team Providers + +------+ + | Care Funding Specialist Name | Role | Phone | + +------+ + | Tomasz Vu MD | PCP | | + +------+ + Encounter Details +--------+ + + + + | Date | Type | Department | Care Team | Description | +--------+ + + + + | 12/13/ | [facility] | [facility] | Andrew Gamboa, | Typical atrial | | 2019 | Encounter | MED CTR CV INTRA OP | MD [address] | flutter (HCC); Acute | | | | [address] | [place], | systolic congestive | | | | [place], [place] | [place] [address] | heart failure (HCC) | | | | [address] | [phone] | | | | | [phone] | | | +--------+ + + + [...] 2019 | Encounter | | MD Nash [address] | unspecified type | | | | | [address] [place], | ([facility]); [place], | | | | | [place] [address] | unspecified syncope | | | | | [phone] | type; Atrial | | | | | | flutter, unspecified | | | | | | type ([facility]) | +--------+ + + + + | 12/30/ | Surgery | Radiology | Colin Diallo, | CV EP ABLATION AF | 2019 | | | MD [address] | | | | | | [address] [place], | | | | | | [place] [address] | | | | | | [phone] | | | | | | | | +--------+ + + + + | 01/14/ Virtual | Cardiology | IsmaAndrew dawn, | | | 2019 | Office | | MD [address]ie Leone | | | | Visit | | [place], | | | | | | [place] [address] | | | | | | [phone] | | | | | | | [...] (1945) OF | | | PROCEDURE: 12/14/2019 CERTIFIED GENETIC COUNSELOR: Andrew Gamboa MD | | | PROCEDURES [...] moderate | | | sedation with continuous rlxx-dw-opko attendance. My intra-service | | | time [...] + + | Performing | Address | City/State/[facility] Cent[facility] | Phone Number | | Organization [...]
--- OUTSIDE RECORDS SUMMARY | ~2019-12-23 | XMS | Encounter Summary ---
Demographics + + + | Address | [address] | | | [place] [address] | + + + | Home Phone | | + + + | Preferred Language | Unknown | + + + | Marital Status | Single | + + + | Anabaptist Affiliation | 1041 | + + + | Race | Unknown | + + + | Ethnic Group | Unknown | + + + Author + + + | Author | [facility] | | | and [place] | + + + | Organization | [facility] [...] Team Providers + +------+ + | Care Coremaking Supervisor Name | Role | Phone | + [...] | | | | | unspecified | [address] | [address] | | | | | type (HCC) | [place], | [place], | | | | | Procedures | [place] [address] | [place] [address] | | | | | EP | Phone: | Phone: | | | | | Cardioversio | [phone] | [phone] | | | | | n [place] | Fax: | Fax: | | | | | CARDIOVERSIO | [phone] | [phone] | | | | | N ELECTIVE | | | | | | | ARRHYTHMIA | | | | | | | INTERNAL SPX | | | | | | | DC | | | | | | | [...] Atrial | MD Andrew | [address] | | | | | flutter, | [address] | [place], | | | | | unspecified | [address] | [place] | | | | | type (HCC) | [place], | [address] | | | | | Procedures | [place] [address] | Phone: | | | | | ECHO | Phone: | [phone] | | | | | Transesophag | [phone] | Fax: | | | | | eal (ANDI) | Fax: | [phone] | | | | | | [phone] | | +--------+--------+ + + + + Encounter Details +--------+ + + + + | Date | Type | Department | Care Team | Description | +--------+ + + + + | 12/01/ | Orders Only | [facility] [place] | Andrew Gamboa, | Atrial flutter, | | 2020 | | CARDIOLOGY [address] | [address] | unspecified type | | | | [place], | [place], | (HCC) (Primary Dx) | | | | [place] [address] | [place] [address] | | | | | [phone] | | | | | | | [...] [place], | | | | | [place] [address] | unspecified syncope | | | | | [phone] | type; Atrial | | | | [...] | | | | | | [place] [address] | | | | | | [phone] | | | | | | | | +--------+ + + + + | 01/14/ | Virtual | Cardiology | Andrew Gamboa, | | | 2019 | Office | | [address] | | | | Visit | | [place], | | | | | | [place] [address] | | | | | | [phone] | | | | | | | | +--------+ + + + + documented as of this encounter Results EP CARDIOVERSION (12/02/2019 1:45 PM PDT) + + + | Narrative | Performed At | + + + | Andrew Gamboa MD 12/02/2019 1:45 PM CARDIOVERSION | [facility] | | REPORT PATIENT NAME/: sEa Leigh, (1945) | [facility] | | DATE OF PROCEDURE: 12/02/2019 | [facility] | | ATHLETICS TEACHER: Andrew Gamboa MD Procedures | - IMAGING [...] + | [facility] | [address] | [place], [place] | [phone] | | [facility] | | [address] | | | - IMAGING | | [...]
--- OUTSIDE RECORDS SUMMARY | ~2019-12-23 | XMS | Encounter Summary ---
Demographics + + + | Address | [address] | | | [place] [address] | + + + | Home Phone | | + + + | Preferred Language | Unknown | + + + | Marital Status | Single | + + + | Latter-Day Affiliation | 1041 | + + + | Race | Unknown | + + + | Ethnic Group | Unknown | + + + Author + + + | Author | [facility] | | | and [place] | + + + | Organization | [facility] | [...] Team Providers + +------+ + | Care Quality Control Coordinator Name | Role | Phone | + [...] [address] | | | | | [place] | [address] [place] | | | | | [place] [address] | [address] | | | | | [phone] | | | | | | | Ivan Gatica | | | | | | MD Conchis [address] | | | | | | [address] [facility] | | | | | | [place] [address] | | | | | | | [...] Efrain Quintero RN | | IV | lqgo-hkt-fisjzm catheter system; | | | | | 20 gauge; 12/04/19; 1535 | | | +--------+ + + + | Periph | 12/01/19; Right; Posterior | 12/01/19 0000 by Lulu | 12/04/19 1535 by | | eral | (dorsal); Forearm; | Emmanuel Jack RN | Efrain Quintero RN | | IV | dlji-zuq-lahhda catheter system; | | | | | [...] | | | | [address], | ([facility]); Syncope, | | | | | [place] [address] | unspecified syncope | | | | | [phone] | type; Atrial | | | | | | flutter, unspecified | | | | | | type ([facility]) | +--------+ + + + + | 12/30/ | Surgery | Radiology | Colin Diallo, | CV EP ABLATION AF | 2019 | | | MD [facility] | | | | | | [place], | | | | | | [place] [address] | | | | | | [phone] | | | | | | | | +--------+ + + + + | 01/14/ | Virtual | Cardiology | Andrew Gamboa, | | | 2020 | Office | | MD Richie Leonard [address] | | | | Visit | | [place], | | | | | | [place] [address] | | | | | | [phone] | | | | | | | [...]
--- OUTSIDE RECORDS SUMMARY | ~2019-12-23 | XMS | Clinical Summary ---
Demographics + + + | Address | [address] | | | [place] [address] | + + + | Home Phone [...] Author + + + | Author | [facility] | | | and [place] | + + + | Organization | [facility] | | | and [place] [...] Team Providers + +------+ + | Care Lead Mason Tender Name | Role | Phone | [...] management as per the patient's | | warehouse examiner, Dr. Gamboa. 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 | | +--------+ + + + + [...] | Office | | MD | flutter ([facility]) | | | Visit | | | [...] type | | | | | | ([facility]) (Primary Dx) | +--------+ + + + + | 11/30/ | Hospital | | Ovidio Ansari, | Atrial flutter, | | 2019 - | Encounter | | MD Heath Ruiz, | unspecified type | | | | | MD | ([facility]); Typical | | 12/03/ | | | | atrial flutter | | 2019 | | | | ([facility]); Acute | | | | | | systolic congestive | | | | | | heart failure ([facility]) | +--------+ + + + [...] | 2019 | Encounter | | [address] | unspecified type | | | | | [address] [place], | ([facility]); [place], | | | | | [place] [address] | unspecified syncope | | | | | [phone] | type; Atrial | | | | | | flutter, unspecified | | | | | | type ([facility]) | +--------+ + + + + | 12/30/ | Surgery | Radiology | Colin Diallo, | CV EP ABLATION AF | | 2019 | | | [address] | | | | | | [address] [place], | | | | | | [place] [address] | | | | | | [phone] | | | | | | | | +--------+ + + + + | 01/14/ | Virtual | Cardiology | Andrew Gamboa, | | | 2019 | Office | | MD [address] | | | | Visit | | [place], | | | | | | [place] [address] | | | | | | [phone] | | | | | | | [...] the | | | | PDT | ([facility]) | results section. | + +--------+ + [...] (1945) OF | | | PROCEDURE: 12/14/2019 LEADITE HEATER: Andrew Gamboa MD | | | PROCEDURES [...] moderate | | | sedation with continuous fvps-of-jdgf attendance. My intra-service | | | time [...] [address] | [place] | [phone] | | [facility] | | [address] | | | - LABORATORY | | [...] + | [facility] | [address] | [place] | [phone] | | [facility] | | [address] | | | - LABORATORY | | [...] | | | | mmol/L | [facility] | | | | | | MEDICAL [...] mL/min/1.73m2 | [facility] | | | [place]IAN | RATE,ESTIMATED | | MEDICAL | | | | mL/min/1.54t0Vjut than | | CENTER - | | [...] ST. | [address] | [place], [place] | [phone] | | [facility] | | [address] | | | - LABORATORY | | [...] + | [facility] | [address] | [place] | [phone] | | [facility] | | [address] | | | - LABORATORY | | [...] | | | | | [place] EPPERSON ([id number]) on | | | | | | [...] REPORT PATIENT NAME/: Esa Leigh, (1945) | [facility] | | DATE OF PROCEDURE: 12/02/2019 | [facility] | | LEADITE HEATER: Andrew Gamboa MD Procedures | - IMAGING [...] [address] | [place] | [phone] | | [facility] | | [address] | | | - IMAGING | | [...] | | | | | | n Christian | | | | | + + [...] | | | | | | n Christian | | | | | + + [...] | | | | | | [employer] | | | | | [...] + | [facility] | [address] | [place] | [phone] | | [facility] | | [address] | | | - LABORATORY | | [...] [address] | [place] | [phone] | | [facility] | | [address] | | | - LABORATORY | | | | + + + + + Hemoglobin A1C (12/01/2019 7:40 PM PDT) + +-------+ + + + | Component | Value | Ref Range | Performed | Pathologist | | | | | At | Signature | + +-------+ + + + | Hemoglobin | 6.0 | 4.3 - 6.0 % | [facility] | | | A1c | | | [facility] | | | | | | [facility]ICAL | | | | | | CENTER - | | | | | | LABORATORY | | + +-------+ + + + | Estimated | 126 | mg/dL | [facility] | | | Average | | | [...] [address] | [place] | [phone] | | [facility] | | [address] | | | - LABORATORY | | [...] | | | | mmol/L | [facility] | | | | [...] (H) | 60 - 106 mg/dL | [facility] | | | | | | [facility] | | | | | | MEDICAL | | | | | | CENTER - | | | | | | LABORATORY | | + + + + + + | BUN | 26 (H) | 9 - 23 mg/dL | [facility] | | | | | | [facility] | | | | | | MEDICAL | | | | | | CENTER - | | | | | | LABORATORY | | + + + + + + | Creatinine | 0.74 | 0.70 - 1.30 | [facility] | | | | | mg/dL | [facility] | | | | | | MEDICAL | | | | | | CENTER - | | | | | | LABORATORY | | + + + + + + | eGFR if not | >60Comment: GLOMERULAR | >=60 | [facility] | | | | FILTRATION | mL/min/1.73m2 | [facility] | | | [place]IAN | RATE,ESTIMATED | | MEDICAL | | | | mL/min/1.18y4Fsaj than | | CENTER - | | [...] [address] | [place] | [phone] | | [facility] | | [address] | | | - LABORATORY | | [...] + | [facility] | [address] | [place] | [phone] | | [facility] | | [address] | | | - LABORATORY | | [...] +--------+ +---------+--------+ | MEDICARE | MEDICA | [id number] | 08/26/19 | [phone] | | Medica | | | RE | | 20-Pre | 5 | | re | | | PART A | | sent | | | | | | AND B | | | | | | + +--------+ +--------+ +---------+--------+ | [facility] | [facility] | [id number] | 11/25/19 | | | Indemn | [...] | 1945 | [phone] | [place] [address] | | | ankush | | | 9 (Home) | | + +--------+ +--------+ + + Advance Directives + + + + + | Type | Date Recorded | Patient | Explanation | | | | Heel Shaper | | + + + + + | Power of | | | | | Federal Law Clerk | | | | + + + [...]
--- OUTSIDE RECORDS SUMMARY | ~2019-12-23 | XMS | Encounter Summary ---
Demographics + + + | Address | [address] | | | [place] [address] | + + + | Home Phone | | + + + | Preferred Language | Unknown | + + + | Marital Status | Single | + + + | Sikhism Affiliation | 1041 | + + + | Race | Unknown | + + + | Ethnic Group | Unknown | + + + Author + + + | Author | [facility] | | | and [place] | + + + | Organization | [facility] | | | and [place] [...] Team Providers + +------+ + | Care Medical Coder Name | Role | Phone | + [...] | atrial | [address] | [address] | | | | | flutter | [address] | [address]VE [address] | | | | | (HCC) | [place], | [address] [place], | | | | | Procedures | [place] [address] | [place] [address] | | | | | 12/21> DOS | Phone: | Phone: | | | | | 12/17> PEND | [phone] | [phone] | | | | | [facility] - URGENT | Fax: | Fax: | | | | | REFERRAL TO | [phone] | [phone] | | | | | YOEL, | [...] CARDIOLOGY [address] | MD [address] | flutter (HCC) | | | | [place], | [place], | (Primary Dx) | | | | [place] [address] | [place] [address] | | | | | [phone] | | | | | | | [...] | 2019 | Encounter | | [address] | unspecified type | | | | | [address] [place], | ([facility]); [place], | | | | | [place] [address] | unspecified syncope | | | | | [phone] | type; Atrial | | | | | | flutter, unspecified | | | | | | type ([facility]) | +--------+ + + + + | 12/30/ | Surgery | Radiology | Colin Diallo, | CV EP ABLATION AF | 2019 | | | [address] | | | | | | [address] [place], | | | | | | [place] [address] | | | | | | [phone] | | | | | | | | +--------+ + + + + | 01/14/ | Virtual | Cardiology | Andrew Gamboa, | | 2019 | Office | | MD [address]ie [address] | | | | Visit | | [place], | | | | | | [place] [address] | | | | | | [phone] | | | | | | | [...]
--- OUTSIDE RECORDS SUMMARY | ~2019-12-23 | XMS | Encounter Summary ---
Demographics + + + | Address | [address] | | | [place] [address] | + + + | Home Phone | | + + + | Preferred Language | Unknown | + + + | Marital Status | Single | + + + | Latter Day Affiliation | 1041 | + + + | Race | Unknown | + + + | Ethnic Group | Unknown | + + + Author + + + | Author | [facility] | | | and [place] | + + + | Organization | [facility] | | | and [place] [...] Team Providers + +------+ + | Care Homemaker Companion Name | Role | Phone | + [...] | 12/15/ | Telephone | [facility] [place] | Andrew Gamboa, | Other (appointment) | | 2020 | | CARDIOLOGY [address] | MD [address] | | | | | [place], | [place], | | | | | [place] [address] | [place] [address] | | | | | [phone] | | | | | | | [...] | 2019 | Encounter | | [address] | unspecified type | | | | | [address] [place] | ([facility]); [place], | | | | | [place] [address] | unspecified syncope | | | | | [phone] | type; Atrial | | | | | | flutter, unspecified | | | | | | type (HCC) | +--------+ + + + + | 12/30/ | Surgery | Radiology | Colin Diallo, | CV EP ABLATION AF | 2019 | | | [address] | | | | | | [address] [place], | | | | | | [place] [address] | | | | | | [phone] | | | | | | | | +--------+ + + + + | 01/14/ | Virtual | Cardiology | Andrew Gamboa, | | | 2019 | Office | | [address] | | | | Visit | | [place], | | | | | | [place] [address] | | | | | | [phone] | | | | | | | | +--------+ + + + + documented as of this encounter Visit Diagnoses Not on filedocumented in this encounter"
--- OUTSIDE RECORDS SUMMARY | ~2019-12-23 | XMS | Encounter Summary ---
Demographics + + + | Address | [address] | | | [place] [address] | + + + | Home Phone | | + + + | Preferred Language | Unknown | + + + | Marital Status | Single | + + + | Jehovah'S Witness Affiliation | 1041 | + + + | Race | Unknown | + + + | Ethnic Group | Unknown | + + + Author + + + | Author | [facility] | | | and [place] | + + + | Organization | [facility] | | | and [place] | [...] Team Providers + +------+ + | Care Bilingual Recruiter Name | Role | Phone | + +------+ + | Tomasz Vu MD | PCP | | + +------+ + Encounter Details +--------+--------+ + + + | Date | Type | Department | Care Team | Description | +--------+--------+ + + + | 11/30/ | Intake | MERLY CARRASCO | | N/A | | 2019 | | [place] [address] | | | | | | [place] | | | | | | [place] | | | | | | [address] | | | | | | [phone] | | | +--------+--------+ + + + Social History + +-------+ [...] | 2020 | Encounter | | [address] | unspecified type | | | | | [address] [place] | ([facility]); [place], | | | | | [place] [address] | unspecified syncope | | | | | [phone] | type; Atrial | | | | | | flutter, unspecified | | | | | | type ([facility]) | +--------+ + + + + | 12/30/ | Surgery | Radiology | Colin Diallo, | CV EP ABLATION AF | 2019 | | | [address] | | | | | | [address] [place], | | | | | | [place] [address] | | | | | | [phone] | | | | | | | | +--------+ + + + + | 01/14/ | Virtual | Cardiology | Andrew Gamboa, | | | 2019 | Office | | [address] | | | | Visit | | [place], | | | | | | [place] [address] | | | | | | [phone] | | | | | | | | +--------+ + + + + documented as of this encounter Visit Diagnoses Not on filedocumented in this encounter"
--- OUTSIDE RECORDS SUMMARY | ~2019-12-23 | XMS | Encounter Summary ---
Demographics + + + | Address | [address] | | | [place] [address] | + + + | Home Phone | | + + + | Preferred Language | Unknown | + + + | Marital Status | Single | + + + | Islam Affiliation | 1041 | + + + | Race | Unknown | + + + | Ethnic Group | Unknown | + + + Author + + + | Author | [facility] | | | and [place] | + + + | Organization | [facility] | | | and [...] Team Providers + +------+ + | Care General Pediatrician Name | Role | Phone | + [...] | CARDIOLOGY [address] | MD [address] | | | | | [place], | [place], | | | | | [place] [address] | [place] [address] | | | | | [phone] | | | | | | | [...] | 2019 | Encounter | | [address] | unspecified type | | | | | [address] [place] | ([facility]); [place], | | | | | [place] [address] | unspecified syncope | | | | | [phone] | type; Atrial | | | | | | flutter, unspecified | | | | | | type (HCC) | +--------+ + + + + | 12/30/ | Surgery | Radiology | Colin Diallo, | CV EP ABLATION AF | 2019 | | | [address] | | | | | | [address] [place], | | | | | | [place] [address] | | | | | | [phone] | | | | | | | | +--------+ + + + + | 01/14/ | Virtual | Cardiology | Andrew Gamboa, | | | 2019 | Office | | [address] | | | | Visit | | [place], | | | | | | [place] [address] | | | | | | [phone] | | | | | | | | +--------+ + + + + documented as of this encounter Visit Diagnoses Not on filedocumented in this encounter"
--- OUTSIDE RECORDS SUMMARY | ~2019-12-23 | XMS | Encounter Summary ---
Demographics + + + | Address | [address] | | | [place] [address] | + + + | Home Phone [...] | [facility] | | | and [place] [...] Team Providers + +------+ + | Care Department Head College Or University Name | Role | Phone | + [...] | 12/03/ | Telephone | [facility] [place] | [employer], | Other (Order for | | 2019 | | CARDIOLOGY [address] | MD [address] [place] | [employer] Life vest sent) | | | | [place], | [place], | | | | | [place] [address] | [place] [address] | | | | | [phone] | | | | | | | [...] 2019 | Encounter | | MD Nash [address] | unspecified type | | | | | [address] [place], | ([facility]); [place], | | | | | [place] [address] | unspecified syncope | | | | | [phone] | type; Atrial | | | | | | flutter, unspecified | | | | | | type ([facility]) | +--------+ + + + + | 12/30/ | Surgery | Radiology | Colin Diallo, | CV EP ABLATION AF | 2019 | | | MD Nash [address] | | | | | | [address] [place], | | | | | | [place] [address] | | | | | | [phone] | | | | | | | | +--------+ + + + + | 01/14/ | Virtual | Cardiology | Andrew Gamboa, | | | 2019 | Office | | MD [address] | | | | Visit | | [place], | | | | | | [place] [address] | | | | | | [phone] | | | | | | | | +--------+ + + + + documented as of this encounter Visit Diagnoses Not on filedocumented in this encounter"
--- OUTSIDE RECORDS SUMMARY | ~2019-12-23 | XMS | Encounter Summary ---
Demographics + + + | Address | [address] | | | [place] [address] | + + + | Home Phone | | + + + | Preferred Language | Unknown | + + + | Marital Status | Single | + + + | Jewish Affiliation | 1041 | + + + | Race | Unknown | + + + | Ethnic Group | Unknown | + + + Author + + + | Author | [facility] | | | and [place] | + + + | Organization | [facility] | | | and [...] Team Providers + +------+ + | Care Regrind Mill Operator Name | Role | Phone | [...] + | 12/19/ | Telephone | [facility] | Karla Becerra M, | Dysuria | | 2019 | | [facility] | CAP LINING MACHINE OPERATOR [address] | | | | | [address] | [address] | | | | | [address] | [place] [address] | | | | | [place], [place] | [phone] | | | | | [address] | | | | | | [phone] | | | +--------+ + + + [...] | 2019 | Encounter | | [address] | unspecified type | | | | | [address] [place], | ([facility]); [place], | | | | | [place] [address] | unspecified syncope | | | | | [phone] | type; Atrial | | | | | | flutter, unspecified | | | | | | type ([facility]) | +--------+ + + + + | 12/30/ | Surgery | Radiology | Colin Diallo, | CV EP ABLATION AF | 2019 | | | [address] | | | | | | [address] [place], | | | | | | [place] [address] | | | | | | [phone] | | | | | | | | +--------+ + + + + | 01/14/ | Virtual | Cardiology | Andrew Gamboa, | | | 2019 | Office | | [address] [place] | | | | Visit | | [place], | | | | | | [place] [address] | | | | | | [phone] | | | | | | | | +--------+ + + + + documented as of this encounter Visit Diagnoses Not on filedocumented in this encounter"
--- OUTSIDE RECORDS SUMMARY | ~2019-12-23 | XMS | Encounter Summary ---
Demographics + + + | Address | [address] | | | [place] [address] | + + + | Home Phone [...] | [facility] | | | and [place] [...] Team Providers + +------+ + | Care Delinquent Tax Collector Name | Role | Phone | + [...] | [facility] [address] | | | | | [place] [address] | | | | | | [phone] | | | +--------+ + + + [...] | 2020 | Encounter | | [address] | unspecified type | | | | | [address] | ([facility]); [place], | | | | | [place] [address] | unspecified syncope | | | | | [phone] | type; Atrial | | | | | | flutter, unspecified | | | | | | type (HCC) | +--------+ + + + + | 12/30/ | Surgery | Radiology | Colin Diallo, | CV EP ABLATION AF | | 2019 | | | [address] | | | | | | [address] [place], | | | | | | [place] [address] | | | | | | [phone] | | | | | | | | +--------+ + + + + | 01/14/ | Virtual | Cardiology | Andrew Gamboa, | | | 2019 | Office | | [facility] | | | | Visit | | [place], | | | | | | [place] [address] | | | | | | [phone] | | | | | | | [...]
--- OUTSIDE RECORDS SUMMARY | ~2019-12-23 | XMS | Encounter Summary ---
Demographics + + + | Address | [address] | | | [place] [address] | + + + | Home Phone | | + + + | Preferred Language | Unknown | + + + | Marital Status | Single | + + + | Baptism Affiliation | 1041 | + + + | Race | Unknown | + + + | Ethnic Group | Unknown | + + + Author + + + | Author | [facility] | | | and [place] | + + + | Organization | [facility] | | | and [place] [...] Team Providers + +------+ + | Care Printing Services Coordinator Name | Role | Phone | [...] | 12/03/ | Telephone | [facility] [place] | BeeAranzalam, | Other (Order for | | 2019 | | CARDIOLOGY [address] | MD [address] [place] | [employer] Life vest sent) | | | | [place], | [place], | | | | | [place] [address] | [place] [address] | | | | | [phone] | | | | | | | [...] 2019 | Encounter | | MD Nash [address] | unspecified type | | | | | [address] [place], | ([facility]); [place], | | | | | [place] [address] | unspecified syncope | | | | | [phone] | type; Atrial | | | | | | flutter, unspecified | | | | | | type ([facility]) | +--------+ + + + + | 12/30/ | Surgery | Radiology | Colin Diallo, | CV EP ABLATION AF | 2019 | | | MD Nash [address] | | | | | | [address] [place], | | | | | | [place] [address] | | | | | | [phone] | | | | | | | | +--------+ + + + + | 01/14/ | Virtual | Cardiology | Andrew Gamboa, | | | 2019 | Office | | MD [address] | | | | Visit | | [place], | | | | | | [place] [address] | | | | | | [phone] | | | | | | | | +--------+ + + + + documented as of this encounter Visit Diagnoses Not on filedocumented in this encounter"
--- OUTSIDE RECORDS SUMMARY | ~2019-12-23 | XMS | Encounter Summary ---
Demographics + + + | Address | [address] | | | [place] [address] | + + + | Home Phone | | + + + | Preferred Language | Unknown | + + + | Marital Status | Single | + + + | Confucianist Affiliation | 1041 | + + + | Race | Unknown | + + + | Ethnic Group | Unknown | + + + Author + + + | Author | [facility] | | | and [place] | + + + | Organization | [facility] | | | and [...] Team Providers + +------+ + | Care Occupational Therapy Aide Name | Role | Phone | + [...] | [address] | [place] [address] | | | | | [place] [address] | | | | | | [phone] | | | +--------+ + + + [...] | 2020 | Encounter | | [address] | unspecified type | | | | | [address] [place] | ([facility]); [place], | | | | | [place] [address] | unspecified syncope | | | | | [phone] | type; Atrial | | | | | | flutter, unspecified | | | | | | type (HCC) | +--------+ + + + + | 12/30/ | Surgery | Radiology | Colin Diallo, | CV EP ABLATION AF | | 2019 | | | [address] | | | | | | [address] [place], | | | | | | [place] [address] | | | | | | [phone] | | | | | | | | +--------+ + + + + | 01/14/ | Virtual | Cardiology | Andrew Gamboa, | | | 2019 | Office | | [address] [facility] | | | | Visit | | [place], | | | | | | [place] [address] | | | | | | [phone] | | | | | | | [...]
--- OUTSIDE RECORDS SUMMARY | ~2019-12-23 | XMS | Encounter Summary ---
Demographics + + + | Address | [address] | | | [place] [address] | + + + | Home Phone | | + + + | Preferred Language | Unknown | + + + | Marital Status | Single | + + + | Buddhism Affiliation | 1041 | + + + | Race | Unknown | + + + | Ethnic Group | Unknown | + + + Author + + + | Author | [facility] | | | and [place] | + + + | Organization | [facility] | | [...] Providers + +------+ + | Care Senior Net C Developer Name | Role | Phone | [...] (Virtual | | 2019 | | CARDIOLOGY [facility] | MD [address] | Facetime) | | | | [address] | [address] [place], | | | | | [place] [address] [place], [place] | [place] [address] | | | | | [address] | [phone] | | | | | [phone] | | | +--------+ + + + [...] 2019 | Encounter | | MD Nash [address] | unspecified type | | | | | [address] [place], | ([facility]); [place], | | | | | [place] [address] | unspecified syncope | | | | | [phone] | type; Atrial | | | | | | flutter, unspecified | | | | | | type ([facility]) | +--------+ + + + + | 12/30/ | Surgery | Radiology | Colin Diallo, | CV EP ABLATION AF | | 2019 | | | MD Nash [address] | | | | | | [address] [place], | | | | | | [place] [address] | | | | | | [phone] | | | | | | | | +--------+ + + + + | 01/14/ | Virtual | Cardiology | Andrew Gamboa, | | | 2019 | Office | | MD [address] | | | | Visit | | [place], | | | | | | [place] [address] | | | | | | [phone] | | | | | | | | +--------+ + + + + documented as of this encounter Visit Diagnoses Not on filedocumented in this encounter"
--- OUTSIDE RECORDS SUMMARY | ~2019-12-23 | XMS | Encounter Summary ---
Demographics + + + | Address | [address] | | | [place] [address] | + + + | Home Phone | | + + + | Preferred Language | Unknown | + + + | Marital Status | Single | + + + | Voodoo Affiliation | 1041 | + + + | Race | Unknown | + + + | Ethnic Group | Unknown | + + + Author + + + | Author | [facility] | | | and [place] | + + + | Organization | [facility] | | | and [place] | [...] Team Providers + +------+ + | Care Payroll And Benefits Assistant Name | Role | Phone | [...] | | | | | congestive | [address] | [address] 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, | failure (HCC) | | | | [place] [address] | [place] [address] | (Primary Dx) | | | | [phone] | [phone] | | | | | | | [...] Catheterization and angiogram. Patient was admitted to [facility] on 12/01/19 for atrial flutter and congestive [...] CV LHC; Surgeon: Andrew Gamboa MD; Location: [facility] CV LAB CARDIAC CATHERIZATION N/A 12/14/2019 Procedure: CV Cor Angio; Surgeon: Andrew Gamboa MD; Location: [facility] CV LAB CARDIAC CATHERIZATION N/A 12/14/2019 Procedure: CV LV; Surgeon: Andrew Gamboa MD; Location: [facility] CV LAB CARDIOVERSION Family History Problem [...] PLT 350 12/03/2019 I reviewed records from [facility] for hospitalization,including H& P, Discharge Summary and lab reports on 12/14/2019. ASSESSMENT: 1.Typical atrial flutter with rapid ventricular response A. Hewas in his usual state of health until 12/01/19, when he was s een at [facility] ER for increased fatigueand feeling weak.EKG shows atrial flutt er with rapid ventricular response and he was given intravenous diltiazem . He was then spain sferred to [facility] for higher level of care. Patient states [...] for stroke include: Age 65 to 74 (1).[id number] score is 1, which gives an estimated [...] normal right-sided pressure, normal IVC with a lsia l respiratory collapse, mild aortic root dilatation [...] reviewed and edited this note. Barbara Berry, Waxer 12/17/2019 I, Andrew Gamboa MD, personally performed the services described in this documentation, as scribed in my presence and it is both accurate and complete. Barbara Berry, Waxer 4:02 PM Electronically signed by: Andrew Gamboa MD [facility] 12/17/2019 Portions of this chart may have been created with VIAP voice recognition software. Occasi onal wrong-word or [...] | | | [address] [place] | ([facility]); [place], | | | | | [place] [address] | unspecified syncope | | | | | [phone] | type; Atrial | | | | | | flutter, unspecified | | | | | | type ([facility]) | +--------+ + + + + | 12/30/ | Surgery | Radiology | Colin Diallo, | CV EP ABLATION AF | | 2019 | | | [address] | | | | | | [address] [place], | | | | | | [place] [address] | | | | | | [phone] | | | | | | | | +--------+ + + + + | 01/14/ | Virtual | Cardiology | Andrew Gamboa, | | | 2019 | Office | | [address] [facility] | | | | Visit | | [place], | | | | | | [place] [address] | | | | | | [phone] | | | | | | | [...]
--- OUTSIDE RECORDS SUMMARY | ~2019-12-23 | XMS | Encounter Summary ---
Demographics + + + | Address | [address] | | | [place] [address] | + + + | Home Phone | | + + + | Preferred Language | Unknown | + + + | Marital Status | Single | + + + | Mormonism Affiliation | 1041 | + + + | Race | Unknown | + + + | Ethnic Group | Unknown | + + + Author + + + | Author | [facility] | | | and [place] | + + + | Organization | [facility] | | | and [...] Team Providers + +------+ + | Care Shipping Clerk Name | Role | Phone | + +------+ + | Tomasz Vu MD | PCP | | + +------+ + Encounter Details +--------+ + + + + | Date | Type | Department | Care Team | Description | +--------+ + + + + | 12/03/ | [facility] | [facility] | Stephanie Ashby, PT | | | 2020 | Encounter | MED CTR ACUTE | | | | | | PHYSICAL THERAPY | | | | | | [address] [place] | | | | | | [place] [address] | | | | | | [phone] | | | +--------+ + + + [...] 2019 | Encounter | | MD Nash [address] | unspecified type | | | | | [address] [place], [place] [address], | ([facility]); [place], | | | | | [place] [address] | unspecified syncope | | | | | [phone] | type; Atrial | | | | | | flutter, unspecified | | | | | | type ([facility]) | +--------+ + + + + | 12/30/ | Surgery | Radiology | Colin Diallo, | CV EP ABLATION AF | | 2019 | | | MD Nash [address] | | | | | | [address] [place], | | | | | | [place] [address] | | | | | | [phone] | | | | | | | | +--------+ + + + + | 01/14/ | Virtual | Cardiology | Andrew Gamboa, | | | 2019 | Office | | MD [address] | | | | Visit | | [place], | | | | | | [place] [address] | | | | | | [phone] | | | | | | | | +--------+ + + + + documented as of this encounter Visit Diagnoses Not on filedocumented in this encounter"
--- OUTSIDE RECORDS SUMMARY | ~2019-12-23 | XMS | Encounter Summary ---
Demographics + + + | Address | [address] | | | [place] [address] | + + + | Home Phone | | + + + | Preferred Language | Unknown | + + + | Marital Status | Single | + + + | Islam Affiliation | 1041 | + + + | Race | Unknown | + + + | Ethnic Group | Unknown | + + + Author + + + | Author | [facility] | | | and [place] | + + + | Organization | [facility] | | [...] Providers + +------+ + | Care Barrel Line Operator Name | Role | Phone | + +------+ + | Tomasz Vu MD | PCP | | + +------+ + Reason for Visit + + + | Reason | Comments | + + + | Consultation | LUMBER CARRIER consult per javier MUNOZ | + + [...] | Required | | atrial | [address] | [address] | | | | | flutter | [address] | AVE SUITE | | | | | ([facility]) | [place], | [address], | | | | | Procedures | [place] [address] | [place] [address] | | | | | 12/21> DOS | Phone: | Phone: | | | | | 12/17> PEND | [phone] | [phone] | | | | | [facility] - URGENT | Fax: | Fax: | | | | | REFERRAL TO | [phone] | [phone] | | | | | MARIAH | [...] | | 2019 | Office | CARDIOLOGY [facility] | MD [address] | flutter (HCC); Acute | | | Visit | HI[address] | [address] [place], | systolic congestive | | | | [address] | [place] [address] | heart failure | | | | [address] | [phone] | ([facility]); | | | | [phone] | | Methamphetamine use | | | | | | ([facility]) | +--------+ + + + + Social [...] through the use of telemedicine. Telemedicine enables [facility] care providers at different locations to provide [...] and underwent cardioversion in early November in [place]. He also underwent [facility] catheterization, where he was not found to [...] tolerated medical management as per the patient's usability specialist, Dr. Prabhjot wilson. The patient has [...] tablet by mouth 2 times daily (at [facility] and bedtime). 60 tablet 0 potassium [...] made to ensure accuracy; however, inadvertent computerized swedish masseuse errors may be pre sent. Total time spent on this visit was 40 minutes. This includes review of available records, discussing the case with other providers, placing orders, etc., and in discussion directly w ith the patient over phone or video. Electronically signed by: Oralia Diallo MD 12/18/2019 2:31 PM armen Vicente, Cook Helper Dessert - 12/18/2019 2:00 PM PDTReview of Systems [...] Zoom for this visit. Preferred phone number: [phone] Medications and Allergies have been reviewed and updated Last OV: 12/17/19 Last EK12/17/19 Patient has had recent Cardiac testing/procedures: none Records are In [facility] Patient's most recent : Lipid Panel N/A, BMP/CMP 12/04/19 Lab report is In [facility] Recent Cardiac ED or Hospital Visits? none documented in this en counter Plan of Treatment +--------+ + + + + | Date | Type | Specialty | Care Team | Description | +--------+ + + + + | 12/30/ | Hospital | Radiology | Oralia Diallo, | Cardiomyopathy, | | 2019 | Encounter | | [address] | unspecified type | | | | | [address] [place], | ([facility]); [place], | | | | | [place] [address] | unspecified syncope | | | | | [phone] | type; Atrial | | | | | | flutter, unspecified | | | | | | type ([facility]) | +--------+ + + + + | 12/30/ | Surgery | Radiology | Oralia Diallo, | CV EP ABLATION AF | 2019 | | | [address] | | | | | | [address] [place], | | | | | | [place] [address] | | | | | | [phone] | | | | | | | | +--------+ + + + + | 01/14/ | Virtual | Cardiology | Andrew Gamboa, | | 2019 | Office | | MD [address] | | | | Visit | | [place], | | | | | | [place] [address] | | | | | | [phone] | | | | | | | [...]
--- OUTSIDE RECORDS SUMMARY | ~2019-12-23 | XMS | Encounter Summary ---
Demographics + + + | Address | [address] | | | [place] [address] | + + + | Home Phone [...] Author + + + | Author | [facility] | | | and [place] | + + + | Organization | [facility] | | | and [...] Team Providers + +------+ + | Care Projects Manager Name | Role | Phone | [...] + | 12/02/ | Telephone | [facility] | Colin Diallo, | Appointment | | 2019 | | [facility] | [address] | (Consent) | | | | [address] | [address] [place], | | | | | [place] [address] [place] [place] | [place] [address] | | | | | [address] | [phone] | | | | | [phone] | | | +--------+ + + + [...] | | [address] [place], | ([facility]); [place], | | | | | [place] [address] | unspecified syncope | | | | | [phone] | type; Atrial | | | | | | flutter, unspecified | | | | | | type ([facility]) | +--------+ + + + + | 12/30/ | Surgery | Radiology | Colin Diallo, | CV EP ABLATION AF | | 2019 | | | [address] | | | | | | [address] [place], | | | | | | [place] [address] | | | | | | [phone] | | | | | | | | +--------+ + + + + | 01/14/ | Virtual | Cardiology | Andrew Gamboa, | | | 2019 | Office | | MD [address] | | | | Visit | | [place], | | | | | | [place] [address] | | | | | | [phone] | | | | | | | | +--------+ + + + + documented as of this encounter Visit Diagnoses Not on filedocumented in this encounter"
--- OUTSIDE RECORDS SUMMARY | ~2019-12-23 | XMS | Encounter Summary ---
Demographics + + + | Address | [address] | | | [place] [address] | + + + | Home Phone [...] Organization | [facility] | | | and [place] [...] Team Providers + +------+ + | Care Field Application Engineer Name | Role | Phone | + +------+ + | Tomasz Vu MD | PCP | | + +------+ + Encounter Details +--------+--------+ + + + | Date | Type | Department | Care Team | Description | +--------+--------+ + + + | 11/30/ | Intake | [facility] | | N/A | | 2019 | | [place] [address] | | | | | | [place] | | | | | | [place] | | | | | | [address] | | | | | | [phone] | | | +--------+--------+ + + + [...] | | [address] [place] | ([facility]); [place], | | | | | [place] [address] | unspecified syncope | | | | | [phone] | type; Atrial | | | | | | flutter, unspecified | | | | | | type ([facility]) | +--------+ + + + + | 12/30/ | Surgery | Radiology | Colin Diallo, | CV EP ABLATION AF | 2019 | | | [address] | | | | | | [address] [place], | | | | | | [place] [address] | | | | | | [phone] | | | | | | | | +--------+ + + + + | 01/14/ | Virtual | Cardiology | Andrew Gamboa, | | | 2019 | Office | | [address] [place] | | | | Visit | | [place], | | | | | | [place] [address] | | | | | | [phone] | | | | | | | | +--------+ + + + + documented as of this encounter Visit Diagnoses Not on filedocumented in this encounter"
--- OUTSIDE RECORDS SUMMARY | ~2019-12-23 | XMS | Encounter Summary ---
Demographics + + + | Address | [address] | | | [place] [address] | + + + | Home Phone [...] + + | Organization | [facility] | [...] Team Providers + +------+ + | Care Emergency Response Coordinator Name | Role | Phone | [...] | | | | | unspecified | [address] | [address] | | | | | type (HCC) | [place], | [place], | | | | | Procedures | [place] [address] | [place] [address] | | | | | EP | Phone: | Phone: | | | | | Cardioversio | [phone] | [phone] | | | | | n [place] | Fax: | Fax: | | | | | CARDIOVERSIO | [phone] | [phone] | | | | | N ELECTIVE | | | | | | | ARRHYTHMIA | | | | | | | INTERNAL SPX | | | | | | | [place] | | | | | | | [...] Atrial | MD Andrew | [address] | | | | | flutter, | [address] | [place], | | | | | unspecified | [address] | [place] | | | | | type (HCC) | [place], | [address] | | | | | Procedures | [place] [address] | Phone: | | | | | ECHO | Phone: | [phone] | | | | | Transesophag | [phone] | Fax: | | | | | eal (ANDI) | Fax: | [phone] | | | | | | [phone] | | +--------+--------+ + + + + Encounter Details +--------+ + + + + | Date | Type | Department | Care Team | Description | +--------+ + + + + | 12/01/ | Orders Only | [facility] [place] | Andrew Gamboa, | Atrial flutter, | | 2020 | | CARDIOLOGY [address] | [address] | unspecified type | | | | [address] [place], | [place], | (HCC) (Primary Dx) | | | | [place] [address] | [place] [address] | | | | | [phone] | [phone] | | | | | | | [...] | [address] [place], | ([facility]); [place], | | | | | [place] [address] | unspecified syncope | | | | | [phone] | type; Atrial | | | | [...] | | | | | | [place] [address] | | | | | | [phone] | | | | | | | | +--------+ + + + + | 01/14/ | Virtual | Cardiology | Andrew Gamboa, | | | 2019 | Office | | [address] | | | | Visit | | [place], | | | | | | [place] [address] | | | | | | [phone] | | | | | | | | +--------+ + + + + documented as of this encounter Results EP CARDIOVERSION (12/02/2019 1:45 PM PDT) + + + | Narrative | Performed At | + + + | Andrew Gamboa MD 12/02/2019 1:45 PM CARDIOVERSION | [facility] | | REPORT PATIENT NAME/: Esa Leigh, (1945) | [facility] | | DATE OF PROCEDURE: 12/02/2019 | [facility] | | LICENSED RETAIL SUPERVISOR: Andrew Gamboa MD Procedures | - [...] + | [facility] | [address] | [place], [place] | [phone] | | [facility] | | [address] | | | - IMAGING | | [...]
--- OUTSIDE RECORDS SUMMARY | ~2019-12-23 | XMS | Encounter Summary ---
Demographics + + + | Address | [address] | | | [place] [address] | + + + | Home Phone | | + + + | Preferred Language | Unknown | + + + | Marital Status | Single | + + + | Sikh Affiliation | 1041 | + + + | Race | Unknown | + + + | Ethnic Group | Unknown | + + + Author + + + | Author | [facility] | | | and [place] | + + + | Organization | [facility] | | | and [place] [...] Team Providers + +------+ + | Care Slipman Name | Role | Phone | + [...] + | 12/19/ | Telephone | [facility] [place] | Karla Becerra M, | Dysuria | | 2019 | | [facility] | DATA MANAGER [address] | | | | | [address] | [address] | | | | | [place] [address] [place] | [place] [address] | | | | | [place], [place] | [phone] | | | | | [address] | | | | | | [phone] | | | +--------+ + + + [...] | 2019 | Encounter | | [address] | unspecified type | | | | | [address] [place], | ([facility]); [place], | | | | | [place] [address] | unspecified syncope | | | | | [phone] | type; Atrial | | | | | | flutter, unspecified | | | | | | type ([facility]) | +--------+ + + + + | 12/30/ | Surgery | Radiology | Colin Diallo, | CV EP ABLATION AF | 2019 | | | [address] | | | | | | [address] [place], | | | | | | [place] [address] | | | | | | [phone] | | | | | | | | +--------+ + + + + | 01/14/ | Virtual | Cardiology | Andrew Gamboa, | | | 2019 | Office | | [address] | | | | Visit | | [place], | | | | | | [place] [address] | | | | | | [phone] | | | | | | | | +--------+ + + + + documented as of this encounter Visit Diagnoses Not on filedocumented in this encounter"
--- OUTSIDE RECORDS SUMMARY | ~2019-12-23 | XMS | Encounter Summary ---
Demographics + + + | Address | [address] | | | [place] [address] | + + + | Home Phone | | + + + | Preferred Language | Unknown | + + + | Marital Status | Single | + + + | Zoroastrianism Affiliation | 1041 | + + + | Race | Unknown | + + + | Ethnic Group | Unknown | + + + Author + + + | Author | [facility] | | | and [place] | + + + | Organization | [facility] | | | and [...] Team Providers + +------+ + | Care Television Announcer Name | Role | Phone | + +------+ + | Tomasz Vu MD | PCP | | + +------+ + Encounter Details +--------+--------+ + + + | Date | Type | Department | Care Team | Description | +--------+--------+ + + + | 11/30/ | Intake | MERLY CARRASCO | | N/A | | 2019 | | [place] [address] | | | | | | [place] | | | | | | [place] | | | | | | [address] | | | | | | [phone] | | | +--------+--------+ + + + [...] | | | [address] [place] | ([facility]); [place], | | | | | [place] [address] | unspecified syncope | | | | | [phone] | type; Atrial | | | | | | flutter, unspecified | | | | | | type ([facility]) | +--------+ + + + + | 12/30/ | Surgery | Radiology | Colin Diallo, | CV EP ABLATION AF | 2019 | | | [address] | | | | | | [address] [place], | | | | | | [place] [address] | | | | | | [phone] | | | | | | | | +--------+ + + + + | 01/14/ | Virtual | Cardiology | Andrew Gamboa, | | | 2019 | Office | | [address] | | | | Visit | | [place], | | | | | | [place] [address] | | | | | | [phone] | | | | | | | | +--------+ + + + + documented as of this encounter Visit Diagnoses Not on filedocumented in this encounter"
--- OUTSIDE RECORDS SUMMARY | ~2019-12-23 | XMS | Encounter Summary ---
Demographics + + + | Address | [address] | | | [place] [address] | + + + | Home Phone [...] Organization | [facility] | | | and [...] Team Providers + +------+ + | Care Court Messenger Name | Role | Phone | + +------+ + | Tomasz Vu MD | PCP | | + +------+ + Encounter Details +--------+---------+ + + + | Date | Type | Department | Care Team | Description | +--------+---------+ + + + | 12/13/ | Surgery | [facility] | Andrew Gamboa, | CV LHC | | 2020 | | MED CTR CV INTRA OP | [address] | | | | | [address] | [address] [place], | | | | | [place] | [place] [address] | | | | | [address] | [phone] | | | | | [phone] | | | +--------+---------+ + + + [...] | Encounter | | MD Charity KING [facility] | unspecified type | | | | | [place], | ([facility]); [place], | | | | | [place] [address] | unspecified syncope | | | | | [phone] | type; Atrial | | | | [...] | | | | | | [place] [address] | | | | | | [phone] | | | | | | | | +--------+ + + + + | 01/14/ | Virtual | Cardiology | Andrew Gamboa, | | | 2019 | Office | | MD [address] | | | | Visit | | [place], | | | | | | [place] [address] | | | | | | [phone] | | | | | | | [...] (1945) OF | | | PROCEDURE: 12/14/2019 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 Apoorva Barnett, [facility] | | | diagnostic [...] moderate | | | sedation with continuous pwri-xo-qaeh attendance. My intra-service | | | time [...] + + | Performing | Address | City/State/[facility] | Phone Number | | Organization [...]
[~2019-12-23 18:43] MED LIST changes: +TOPROL XL50 MG PO
--- OUTSIDE RECORDS SUMMARY | 2019-12-23 18:46 | XMS ---
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 Care History Medical/Surgical 12/12/2018 [facility] - [facility], \T\middot;\T\nbsp; PLEASE REFER PATIENT TO [facility] FOR NON EMERGENT MEDICAL NEEDS. \T\middot;\T\nbsp; [facility] CAN SEE PATIENTS SAME DAY FOR APTS IF PATIENT CALLS FIRST THING IN THE MORNING. E.D. VISIT COUNT (12 MO.) 3 [facility]. TOTAL 3 NOTE: Visits indicate total known visits. ED/UCC VISIT TRACKING (12 MO.) 12/23/2019 18:43 [facility] TYPE: Emergency COMPLAINT: - WEAKNESS, SWOLLEN EXTREMITIES 12/01/2019 12:12 [facility] TYPE: Emergency COMPLAINT: - MULTIPLE COMPLAINTS DIAGNOSES: - Unspecified atrial flutter - Weakness 01/17/2019 03:07 [facility] TYPE: Emergency COMPLAINT: - HEADACHE DIAGNOSES: - Headache - Essential (primary) hypertension - Acquired absence of other organs INPATIENT VISIT TRACKING (12 MO.) 12/01/2019 18:32 [facility] TYPE: Surgical Services DIAGNOSES: - Acute systolic (congestive) heart failure - Typical atrial flutter - Unspecified atrial flutter [id number]
[2019-12-23] MEDS ORDERED: ELIQUIS5 MG PO (20:58)
[2019-12-23] MEDS ORDERED: KLOR-CON 1010 MEQ PO (20:58)
[2019-12-23] MEDS ORDERED: CARVEDILOL3.125 MG PO (20:59)
[2019-12-23] MEDS ORDERED: FUROSEMIDE40 MG PO (20:59)
[2019-12-23] MEDS ORDERED: LISINOPRIL5 MG PO (20:59)
[2019-12-23] MEDS ORDERED: ASPIR 8181 MG PO (21:00)
[2019-12-23] MEDS ORDERED: PACERONE200 MG PO (21:01)
[2019-12-23] MEDS ORDERED: LIPITOR20 MG PO (21:02)
--- NOTE | 2019-12-24 01:10 | NUR ---
LEVOPHED TITRATED TO 6 MCG/MIN FOR BP: 114/52(65)
--- NOTE | 2019-12-24 01:30 | NUR ---
LEVOPHED TITRATED TO 7 MCG/MIN FOR BP:89/54(62)
--- NOTE | 2019-12-24 01:30 | NUR ---
PT REPORTS HE HAS TROUBLE FALLING ASLEEP AND ASKED FOR A SLEEP AID. DR. FOLEY CALLED, ORDER FOR MELATONIN RECEIVED AND ADMINISTERED AT THIS TIME.
--- NOTE | 2019-12-24 01:50 | NUR ---
LEVOPHED TITRATED TO 8 MCG/MIN FOR BP: 87/51(58)
--- NOTE | 2019-12-24 02:00 | NUR ---
LEVOPHED TITRATED TO 10 MCG/MIN FOR BP: 81/50(56)
--- NOTE | 2019-12-24 02:15 | NUR ---
LEVOPHED TITRATED TO 12 MCG/MIN FOR BP: 78/45(53)
--- NOTE | 2019-12-24 02:52 | NUR ---
LEVOPHED TITRATED TO 14 MCG/MIN FOR BP: 87/53(61)
--- NOTE | 2019-12-24 04:36 | NUR ---
ASSESSMENT COMPLETED. PT RESTING, AWOKE EASILY WHILE I WAS IN ROOM. DENIES PAIN AT THIS TIME. LUNGS REMAIN CLEAR, RA. HR REGULAR. BOWEL TONES ACTIVE, ABDOMEN REMAINS SOMEWHAT DISTENDED IN APPEARANCE. IV SITES PATENT. CENTRAL LINE HAS BLOOD RETURN IN ALL 3 LUMENS, FLUSHES WITHOUT RESISTANCE, DRESSING C/D/I. DRESSING TO LEFT FOOT HAS SMALL TO MODERATE AMOUNT OF SEROSANGUINOUS DRAINAGE PRESENT. BLE REMAIN EDEMATOUS. GOLDMAN PATENT, DRAINING FREELY. LEVOPHED DECREASED TO 12 MCG/MIN. AFEBRILE. NO REQUESTS AT THIS TIME, WILL CONTINUE TO MONITOR.
--- NOTE | 2019-12-24 05:14 | NUR ---
DRESSING CHANGED TO LEFT FOOT DUE TO DRAINAGE. PT PAINFUL WITH MOVEMENT OF THE LEFT LEG, PRN TYLENOL GIVEN.
--- NOTE | 2019-12-24 06:23 | NUR ---
DR. FOLEY UPDATED ON PT'S URINE OUTPUT TRENDS, NO NEW ORDERS RECEIVED AT THIS TIME, WILL RE-EVALUATE ONCE MORNING LABS COME BACK.
--- NOTE | 2019-12-24 07:15 | NUR ---
REPORT RECEIVED FROM CHAD CONROY. PT RESTING IN BED WITH EYES CLOSED. RESPIRATIONS EVEN AND UNLABORED. OR AT 100% ON ROOM AIR. LEVEOPHED DRIP REMAINS AT 12MCG/MIN WITH BP OF 96/56, MAP OF 65. IV POTASSIUM INFUSION COMPLETE. PT ALLOWED TO REST. BED RAILS UP. CALL LIGHT WITHIN REACH.
--- NOTE | 2019-12-24 07:50 | OR ---
[facility] [address], [place] [address] Signed DATE OF OPERATION: 12/23/2019 SURGEON: Regine Elkins MD PREOPERATIVE DIAGNOSES: 1. Sepsis. 2. Pneumonia. 3. Anemia. 4. Left lower extremity cellulitis. 5. Blood blister, dorsum left foot. POSTOPERATIVE DIAGNOSES: 1. Sepsis. 2. Pneumonia. 3. Anemia. 4. Left lower extremity cellulitis. 5. Blood blister, dorsum left foot. PROCEDURES: 1. Placement of right femoral triple-lumen catheter. 2. Simple incision and drainage of blood blister, dorsum left foot. ESTIMATED BLOOD LOSS: None. INDICATIONS: Esa is a 74-year-old gentleman, who had been in his general state of health until the last few days while at home. He was getting progressively more weak and so forth. He came to a local emergency room, was found to be septic with probable pneumonia and left lower extremity cellulitis. He was also anemic. His girlfriend had come and gone and so we had very little information other than that. He certainly was hypotensive and tachycardic with a temperature of 100.9, requiring norepinephrine. Although he does have good peripheral IV access, I was asked by the Internal Medicine Service to place a central venous catheter for ongoing ICU care including infusion of the norepinephrine as well as blood draws and so forth. Unfortunately, he is on Eliquis and aspirin. Consequently, we decided we would place at least his initial central venous catheter into the femoral access site. In addition, he is quite swollen from the knee down on the left lower extremity. In the dorsum of the left foot, he has a blood blister probably 5 to 7 cm in diameter. It is quite thin and quite insensate with the overlying skin. We decided we go ahead and just incise and debride that thin skin back sharply at Electronically Signed By: REGINE ELKINS MD 12/24/19 0750 PATIENT NAME: ESA BENJAMIN JR OPERATIVE REPORT DATE OF : 47 REPORT #: [id number] PHYSICIAN: REGINE ELKINS MD PCP: [facility] REPORT IS CONFIDENTIAL AND NOT TO BE RELEASED WITHOUT AUTHORIZATION [facility] [address], [place] [address] Signed the same time. I had reviewed all this with Esa in detail. He understands the nature of a central venous catheter. He understands there is risk to that, including, but not limited to bleeding, infection, scarring, change in contour of the skin as well as possible catheter embolization requiring retrieval, though quite rare and femoral approach. He also understands he may need additional treatment of the area in the dorsum of his left foot, but tonight we decided we would just unroof the overlying skin. He had expressed understanding wished to proceed. PROCEDURE IN DETAIL: Esa was kept supine in his ICU bed. His right groin was prepped and draped in the usual sterile fashion. Local anesthetic was copiously injected into the right groin, not onto the thigh. I could easily palpate the right femoral artery. I went a little more medial than usual because of the Eliquis and the aspirin. I missed the femoral vein on the first pass of the needle. I moved just a little lateral and we caught the femoral vein on the second pass of the needle without difficulty. The wire was able to feed without difficulty. The tract was then dilated and triple-lumen catheter was inserted without any resistance whatsoever. All 3 ports were able to flush and draw quite readily with normal saline. We held the catheter in place with interrupted silk sutures. Dressing was applied per nursing staff. We then prepped and draped the right foot in sterile fashion. We used a #10 blade knife to simply unroofed the very thin overlying skin on that blood blister. He tolerated that quite well. It is going to be covered with Bactroban nonadhesive dressing, dry 4 x 4 gauze and a 4-inch Herbert wrap. Esa tolerated both of these procedures quite well. Regine Elkins MD ALB/MODL /[id number] cc: Regine Elikns MD [facility] Copies: REGINE ELKINS MD Electronically Signed By: REGINE ELKINS MD 12/24/19 0750 PATIENT NAME: ESA BENJAMIN JR OPERATIVE REPORT DATE OF : 47 REPORT #: [id number] PHYSICIAN: REGINE ELKINS MD PCP: [facility] REPORT IS CONFIDENTIAL AND NOT TO BE RELEASED WITHOUT AUTHORIZATION [address] [address] Signed [facility] ~ Electronically Signed By: REGINE ELKINS MD 12/24/19 0750 PATIENT NAME: ESA BENJAMIN JR OPERATIVE REPORT DATE OF : 47 REPORT #: [id number] PHYSICIAN: REGINE ELKINS MD PCP: [facility] REPORT IS CONFIDENTIAL AND NOT TO BE RELEASED WITHOUT AUTHORIZATION
--- NOTE | 2019-12-24 08:32 | NUR ---
MORNING ASSESSMENT AND MEDICATION DUE. PT AWAKENS TO VOICE AND LIGHT TOUCH. PT DENIES PAIN AND NAUSEA "UNLESS I MOVE MY FOOT, THEN I HURTS." ASSESSMENT DONE. LUNG SOUNDS CLEAR. HEART IN SINUS RHYTHEM WITH BBB. HYPO ACTIVE BOWEL TONES. EDEMA CONTINUES THROUGHOUT BODY WITH +3 EDEMA IN BLE, GENERALIZED EDEMAN IN ARMS, ACITIES, AND SCROTAL EDEMA. LEOPHED DRIP TITRATED TO 10MCG/MIN. CENTRAL LINE ASSESSED, BLOOD RETURN NOTED IN WHITE AND BLUE LUMENS BUT NOT IN BROWN. MD CONSULTED, NO NEW ORDERS. MD TO BEDSIDE FOR ROUNDS. PT ANITICIPATING BLOOD TRANSFUSION THIS SHIFT. BREAKFAST ORDER PLACED. PT EATING BREAKFAST WITH ASPIRATION PRECAUTIONS IN PLACE, HOB AT 70 DEGREES. URINE OUTPUT MAINTAINING AT ~30ML/HR. MD AWARE. NO ADDITIONAL REQUESTS OR COMPLAINTS AT THIS TIME. CALL LIGHT WITHIN REACH.
--- NOTE | 2019-12-24 08:54 | NUR ---
PT FINISHED WITH BREAKFAST. REQUESTS TO HAVE HOB RECLINED. HOB RECLINED TO 30 DEGREES. NO ADDITIONAL REQUESTS OR COMPLAINTS AT THIS TIME. BED RAILS UP. CALL LIGHT WITHIN REACH.
--- NOTE | 2019-12-24 09:25 | NUR ---
PT REPORTS NEED TO HAVE BOWEL MOVEMENT. UNABLE TO TO CONTAIN BOWEL MOVEMENT, SOME CAUGHT IN BED HUGGINS. MEDIUM SIZED LIQUID BROWN STOOL NOTED. MEÑO CARE AND CATHETER CARE DONE. DEPENDS PLACED. LINENS CHANGED. DR. LAWS TO BEDSIDE FOR VISIT. PT REPORTS HE HAS AN APPOINTMENT WITH "THE HEART DOCTOR" ON THE November TO "HAVE A VALVE PUT IN, THERE IS NO VALVE THERE, I'M HAVING ONE PUT." MEDICATION GIVEN. NO ADDITIONAL REQUESTS OR COMPLAINTS. CALL LIGHT WITHIN REACH.
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
--- NOTE | 2019-12-24 11:04 | NUR ---
ALBUMIN INFSUSION COMPLETE. BROWN LUMIN HEPARIN LOCKED. PT CONTINUES RESTING WITH EYES CLOSED. RESPONDS TO QUESTIONS WHEN ASKED. BED RAILS UP. CALL LIGHT WITHIN REACH.
--- NOTE | 2019-12-24 12:00 | NUR ---
NOON ASSESSMENT AND MEDICATION DUE. LUNCH ORDER PLACED FOR PT. PT REPORTS HE HAS SOILED HIS DEPENDS. BED HUGGINS PLACED, NO STOOL NOTED. MEÑO CARE DONE. PT REMAINS DRY. FRESH DEPENDS IN PLACE. CATHETER CARE DONE. TYLENOL GIVEN IN ANTICIPATION OF PAIN WITH DRESSING CHANGE DRESSING CHANGE TO WOUND ON LLE, EDGES OF WOUND APPEAR BRUISED. FOOT VERY SWOLLEN. 14CM X 9CM AREA OF SERIOUS ANGUINOUS DRAINAGE NOTED ON DRESSING. WOUND MEASURED TO BE 7CM X 6CM WITH MACERATED SKIN. NEW DRESSING APPLIED PER MD ORDER. STRONG PULSE NOTED. ASSESSMENT DONE. LUNG SOUNDS CLEAR. EDEMA CONTINUES, SCROTAL EDEMA SLIGHTLY IMPROVED. 1ST UNITE OF BLOOD COMPLETE. VITALS TAKEN. 2ND UNIT HUNG PER PROTOCOL. THIS RN REMAINS AT BEDSIDE FOR 1ST 15 MINUTES OF INFUSION. NO S/S OF INFUSION REACTION NOTED. RATE INCREASED TO 150ML PER PROTOCOL.
--- NOTE | 2019-12-24 12:06 | NUR ---
MED REC COMPLETED USING MEDICAL RECORDS HISTORY FROM [facility]. RECORDS DATED 12/10/19.
--- NOTE | 2019-12-24 12:12 | EKG ---
[facility] [address] [place] [address] Signed Sinus tachycardia with premature supraventricular complexes Possible Left atrial enlargement Left bundle branch block Abnormal ECG When compared with ECG of 01-DEC-2019 12:24, Sinus rhythm has replaced Wide QRS tachycardia Vent. rate has decreased BY 54 BPM Confirmed by ODETTE FOLEY MD ([id number]) on 12/24/2019 12:11:46 PM Electronically Signed By: ODETTE FOLEY MD 12/24/19 1212 PATIENT NAME: ROSIE BENJAMIN JR Electrocardiogram DATE OF : 47 PHYSICIAN: ODETTE FOLEY MD REPORT #: [id number] REPORT IS CONFIDENTIAL AND NOT TO BE RELEASED WITHOUT AUTHORIZATION
--- NOTE | 2019-12-24 12:51 | NUR ---
LEVOPHED TITRATION: MAP REMAINS ABOVE 65, LEVOPHED TITRATED TO 8MCG/MIN. PT REPORTS AGAIN THAT HE NEEDS TO HAVE BOWEL MOVEMENT. BED PAIN USED. MEDIUM SIZED LIQUID STOOL NOTED. MD CONSULTED. STATES TO ORDER C-DIFF, STOOL WBC AND CULTURE IF 3 LIQUID STOOLS OCCUR. WILL CONTINUE TO MONITOR. PT RESTING IN BED. NO ADDITIONAL REQUESTS OR COMPLAINTS CALL LIGHT WITHIN REACH.
--- NOTE | 2019-12-24 13:00 | NUR ---
PT REQUESTS BED HUGGINS AGAIN. 3RD MEDIUM LIQUID STOOL. ORDERS PLACED PER MD ORDER. SAMPLE SENT TO LAB.
--- NOTE | 2019-12-24 13:20 | NUR ---
LEVOPHED TITRATION: MAP DROPING TO LOW 60'S. LEVOPHED DRIP TITRATED UP TO 10MCG/MINUTE. PT RESTING IN BED. NO ADDITIONAL REQUESTS OR COMPLAINTS. WATER REFILLED. CALL LIGHT WITHIN REACH.
--- NOTE | 2019-12-24 14:02 | NUR ---
PT ON BED HUGGINS FOR LARGE WATERY BM.
--- NOTE | 2019-12-24 14:30 | NUR ---
PUMP ALARMING, 2ND UNIT OF PBRCs COMPLETE. LINE FLUSHED AND HEPARIN LOCKED PER PROTOCOL. IV FLUIDS RESUMED (SEE MAR) THROUGH BROWN LUMEN. PT REQUESTS TO USE BED HUGGINS AGAIN, SMALL LIQUID BM NOTED. MEÑO CARE DONE. DEPENDS CHANGED. CASE MANAGEMENT TO BEDSIDE TO TALK WITH PATIENT. CT CALLED AND STATES THEY ARE READY FOR THE PT TO COME AFTER HE IS FINISHED VISITING WITH CASE MANAGMENT. WARM BLANKETS PROVIDED. LEG ELEVATED ON PILLOW. NO ADDITIONAL REQUESTS OR COMPLAINTS AT THIS TIME. CALL LIGHT WITHIN REACH.
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
--- NOTE | 2019-12-24 15:32 | NUR ---
PT VISITING ON PHONE WITH CAREGIVER GEORGETTE WHO STATES PT SEES DR. BETH IN [place], [place] FOR CARDIOLOGY.
--- NOTE | 2019-12-24 15:34 | NUR ---
THIS RN SPOKE WITH GEORGETTE, PTS CAREGIVER WHO STATES PT NEVER FELL AND STATES "HIS HOME IS SO BAD, BED BUGS, MOLD, COCKROACHES, AND NO HOT WATER." "HE WAS PEEING AND POOPING HIMSELF." GEORGETTE STATES SHE IS A "FAMILY FRIEND, I JUST CHECK ON HIM BECAUSE HE'S A FRIEND." GEORGETTE STATES SHE IS NOT A STATE CAREGIVER. GEORGETTE STATES PT WAS PLACED ON "WATER PILLS" ON THE AND "ITS HASN'T HELPED. GEORGETTE STATES PT IS "PEEING BROWN AND HAS HAD DIARRHEA FOR A COUPLE OF WEEKS NOW." GEORGETTE STATES PT WAS SCHEDULED FOR A "DEFIBULATOR TO BE PUT IN" ON THE AND STATES "NO, IT WAS NOT A VALVE THING." GEORGETTE STATES ALL HER QUESTIONS HAVE BEEN ANSWERED AT THIS TIME. PT RESTING IN BED. BED RAILSUP. CALL LIGHT WITHIN REACH.
--- NOTE | 2019-12-24 15:48 | NUR ---
Called [employer] and requested if they are in contact and have cg in with Esa. They state they do not.
--- NOTE | 2019-12-24 15:56 | NUR ---
AFTERNOON ASSESSMENT DUE. PT RESTING IN BED. LUNG SOUNDS CLEAR. PT DENIES PAIN AND NAUSEA. WEEPING NOTED TO LLE WITH BLISTER/HEMATOMA TO LEFT MENDEZ BURST AND LEAKING. BACETRACIN AND GAUZE APPLED PER DR. LASW'S ORDER. LEVOPHED DRIP REMAINS AT 8MCG/MIN. EDEMA CONTINUES BILATERAL EXTREMITIES, ARMS, ABDOMEN AND SCROTUM. PT RESTING WITH EYES CLOSED. DINNER ORDER PLACED. CALL LIGHT WITHIN REACH.
--- NOTE | 2019-12-24 16:00 | NUR ---
Called and spoke with Esa's cg Jyoti Fay. She states she is not his cg and is not paid. She is a long time friend of Esa and his family. She stopped to see him on the 7th and he was ill due to his chronic copd and legs were swollen. He was bedbound and resting in a wet bed of urine and stool. He house was "a horrible mess". She helped him and started trying to assist him when she wasn't working. She began cleaning his house, she states it is full of bed bugs and cockroaches. She contacted [facility] and the [facility] for temporary housing so she can fumigate his house. She states he is unable to get out of bed, take his own meds. toilet himself, drive, go to the Dr., Grocery shop, or care for himself. While she works, she has had the next door neighbor girl sit with him due to his deconditioning. Informed I will call [facility] for an evaluation.
--- NOTE | 2019-12-24 16:44 | NUR ---
LEVOPHED TITRATION: MAP MAINTAINING ABOVE 65. LEVOPHED TITRATED TO 6MCG/MIN. PT RESTING IN BED WIHT EYES CLOSED. BED RAILS UP. CALL LIGHT WITHIN REACH.
--- NOTE | 2019-12-24 16:50 | NUR ---
Called and spoke with the worker of the day, Sarita Gee, from [facility]. Asked if they can begin process for eval of Esa. She states she had received a call from the a few days ago, but they were seeking housing and did not state the condiditon the patient was in. I gave her Jyoti's number and updated Esa is hospitalized for sepsis in ICU. She stated she will make calls. Also informed I will speak with pt and request he go to a SNf for rehab.
--- NOTE | 2019-12-24 16:58 | NUR ---
PT CALL LIGHT ON. PT REQUESTS ASSISTANCE WITH BED HUGGINS. PT HAS LARGE LIQUID BM. MEÑO CARE DONE, BARRIER CREAM APPLIED, FRESH DEPENDS IN PLACE. MEDICATION GIVEN (SEE MAR). HOB UP TO 60 DEGREES TO EAT DINNER. LEVOPHED DRIP REMAINS AT 6MCG/MINUTE. CONTINUING TO MINOTOR. PT EATING DINNER. NO ADDITIONAL REQUESTS OR COMPLAINTS.
--- NOTE | 2019-12-24 17:37 | NUR ---
LEVOPHED TITRATION: MAP MAINTAINING ABOVE 65. LEVOPHED TITRATED TO 4MCG/MIN. PT FINISHED WITH DINNER. NO ADDITIONAL REQUESTS OR COMPLAINTS. CALL LIGHT WITHIN REACH.
--- NOTE | 2019-12-24 18:00 | NUR ---
LEVOPHED INCREASED: MAP NOTED TO BE BELOW 65. LEVOPHED INCREASED TO 6MCG/MIN. NEW BAG HUNG. LABS DUE. CENTRAL LINE ASSESSED, WNL, BRISK BLOOD RETURN NOTED. 8ML WASTE FROM WHITE LUMEN, 10ML LAB DRAW. WHITE LUMEN FLUSHED AND HEPARIN LOCKED PER PROTOCOL. ALCOHOL CAP APPLIED. IV FLUIDS DC'D PER MD ORDER. BROWN LUMEN FLUSHED AND HEPARIN LOCKED PER PROTOCOL. ALCOHOL CAP APPLIED. LABS SENT PER PROTOCOL. PT RESTING IN BED. NO ADDITIONAL REQUESTS OR COMPLAINTS AT THIS TIME. CALL LIGHT WITHIN REACH.
--- NOTE | 2019-12-24 18:24 | NUR ---
PT HERE FOR SEPSIS, LOWER EXREMITY CELLULITIS, AND LLL PNEUMONIA. FULL ASSIST, WITH Q2 TURNS THIS SHIFT. PT TOLERATING 2G NA+ DIET WITH IMPROVED APPITITE THIS SHIFT. CARDIAC MONITORING SHOWS NO CHANGE WITH SINUS RHYTHEM AND BBB. LEVOPHED DRIP REMAINS IN PLACE. TITRATED TO 6MCG/MINUTE AT THIS TIME. LUNG SOUNDS CLEAR, COVID 19 TEST RESULTS NEGATIVE. DROPLET PRECAUTIONS REMAIN IN PLACE PENDING C-DIFF TEST RESULTS, MULTIPLE LIQUID STOOLS THIS SHIFT. PT FORGETFUL AT TIMES, CAREGIVER CALLED AND UPDATED, REPORTS SQUALAR AT HOME (SEE RN NOTE). GOLDMAN CATHETER DRAINING QUANTITY SUFFICIENT THIS SHIFT. IV LASIX GIVEN. BID DRESSING CHANGES TO LLE, SERIOUS ANGUINOUS DRAINAGE NOTED. PRN TYELNOL GIVEN X1 PRIOR TO DRESSING CHANGE FOR ANTICIPATORY PAIN. 2 UNITS PBRCs AND ALBUMIN GIVEN THSI SHIFT. NO COUGH NOTED. SPUTUM SAMPLE REMAINS TO BE COLLECTED. PT AFEBRIAL THIS SHIFT. PT USES CALL LIGHT APPROPRIATLY.
--- NOTE | 2019-12-24 18:45 | NUR ---
PT CALL LIGHT ON. PT STATES "MY FOOT IS STUCK." PT REPORTS 2/10 PAIN IN LLE. LEG ELEVATED ON AN ADDITONAL PILLOW. TYELNOL GIVEN (SEE MAR). PT STATES "THAT FEELS A LOT BETTER. LEVOPHED DRIP REMAINS AT 6MCG/HR. NO ADDITIONAL REQUESTS OR COMPLAINTS. WARM BLANKET PROVIDED. CALL LIGHT WITHIN REACH.
--- NOTE | 2019-12-24 19:15 | NUR ---
LEVOPHED DRIP INCREASED TO 8 MCG/MIN FOR BLOOD PRESSURE IN SYSTOLICALLY IN THE 90'S, MAP OF 60.
--- NOTE | 2019-12-24 19:38 | NUR ---
RECEIVED REPORT FROM DAYSHIFT RNS. pt RESTING IN BED, REPORTED HE NEEDED TO USE THE BEDPAN, PLACED. CALL LIGHT WITHIN REACH. pt WILL CALL WHEN DONE.
--- NOTE | 2019-12-24 20:34 | NUR ---
LEVOPHED GTT TITRATED TO 10 MCG TO MAINTAIN MAP PER ORDERS. DR WOODY ROUNDED, DISCUSSED pt. WILL INFORM DR IF URINE DROPS TO 15ML/HR.
--- NOTE | 2019-12-24 21:35 | NUR ---
PT. IN BED WITH IV LEVOPHED INFUSING AT 10MCG/MIN. PT. CENTRAL CATHETER LUMENS WERE CHECKED FOR PATENCY AND INFUSION ON ANTIBIOTICS ARE NOW RUNNING IN TWO OTHER LUMENS. PT. WAS ALSO GIVE PO MEDICATIONS AND PRN MELATONIN. PT STATES HE HAS PAIN IN LEFT LOWER FOOT. PLAN FOR DRESSING CHANGE AND PAIN MEDICATION ADMINISTRATION DISCUSSED WITH PT.
--- NOTE | 2019-12-24 22:32 | NUR ---
INFUSION OF VANCOMYCIN COMPLETE. LUMEN WAS FLUSHED AND HEPARIN LOCKED. PT HAS 1 PORT STILL INFUSING 10 MCG/MIN LEVOPHED. PT. USED BEDPAN AND HAD WATERY STOOL. PERICARE DONE, CLEAN DEPENDS. PT REPORTS NO FURTHER NEEDS AT THIS MOMENT. PT IS LAYING IN BED WITH BED IN LOWEST POSITION, RAILS UP, AND CALL LIGHT WITHIN REACH.
--- NOTE | 2019-12-25 00:17 | NUR ---
PT. ASSESSMENT COMPLETED. PRN TYLENOL GIVEN FOR LEFT LEG PAIN. WOUND WAS CLEANED AND REDRESSED PER ORDERS. OLD DRESSING HAD MODERATE SEROSANGUINOUS DRAINAGE. PATIENT REPORTS NO NEEDS AT THIS TIME. BED IN LOWEST POSITION, BEDRAILS UP, CALL LIGHT WITHIN REACH.
--- NOTE | 2019-12-25 00:21 | NUR ---
LEVOPHED TITRATED DOWN TO 8MCG TO MAINTAIN MAP OF 65.
--- NOTE | 2019-12-25 00:38 | NUR ---
RESPONDED TO PT. CALL LIGHT. PT USED BEDPAN AND HAD A SMALL AMOUNT OF WATERY STOOL. PERICARE WAS DONE, CLEAN DEPENDS ON. ALEVYN DRESSING PLACED ON LEFT FLANK DUE TO SKIN BREAKDOWN. PT. REPORTS NO FURTHER NEEDS. PT LAYING IN BED WITH CALL LIGHT IN REACH.
--- NOTE | 2019-12-25 02:20 | NUR ---
PT. USED BEDPAN. PT HAD A LIQUID STOOL. PERICARE WAS DONE, NEW DEPENDS WAS PLACED, AND PATIENT WAS REPOSITIONED ON BED. LEVOPHED DRIP TITRATED DOWN TO 6MCG/MIN. PT REPORTS NO FURTHER NEEDS AT THIS TIME. PT LAYING IN BED AND CALL LIGHT IS WITHIN REACH.
--- NOTE | 2019-12-25 03:15 | NUR ---
RESPONED TO PT CALL LIGHT. PT NEEDED TO USE THE BEDPAN. PT DID NOT END UP HAVING A BOWEL MOVEMENT. PT STATED "MUST HAVE BEEN A FALSE ALARM". PT. REPOSITIONED AND IS LAYING IN BED. BED IS IN LOWEST POSITION AND CALL LIGHT IS WITHIN REACH. WILL CONTINUE TO MONITOR PATIENT.
--- NOTE | 2019-12-25 04:00 | NUR ---
PT. USED BEDPAN, HAD A SOFT SMALL STOOL. PERICARE WAS DONE AND DEPENDS WAS CLEAN. PT. WAS ASSESED. PT. STATED THAT HIS STOMACH WAS BOTHERING HIM AND THAT HE HAD LEFT LEG PAIN. PT WAS GIVEN PRN ACETAMINOPHEN ALONG WITH CRACKERS AND APPLESAUCE. PT. REPORTS NO FUTHER NEEDS AT THIS TIME. PT WAS LEFT WITH BED IN LOWEST POSITION AND CALL LIGHT WITHIN REACH.
--- NOTE | 2019-12-25 04:27 | NUR ---
LEVOPHED TITRATED DOWN TO 4MCG/MIN PER ORDERS.
--- NOTE | 2019-12-25 05:00 | NUR ---
LEVOPHED GTT TITRATED TO 6MCG/MIN TO MAINTAIN MAP PER ORDERS.
--- NOTE | 2019-12-25 05:45 | NUR ---
LEVOPHED GTT TITRATED UP TO 6MCG/MIN PER ORDERS TO MAINTAIN MAP.
--- NOTE | 2019-12-25 06:08 | NUR ---
Pt. used bedpan and had a small clear liquid stool. Pericare was done and clean depends left on. Pt. had labs drawn from central line. Lumen was then heparin locked. Central Line dressing was changed per protocol.Pt laying in bed, call light within reach, bed in lowest position. Will continue to monitor.
--- NOTE | 2019-12-25 07:30 | NUR ---
PATIENT SHIFT REPORT RECIEVED FROM CHILDREN'S PROGRAM COORDINATOR RN. PATIENT RESTING IN BED AND CALLS AP[PROPRIATELY. LEVOPHED GTT REMAINS ON AT THIS TIME. WILL CONTINUE TO CLOSELY MONITOR.
--- NOTE | 2019-12-25 08:11 | NUR ---
PT. VITALS AND ASSESSMENT COMPLETED. PATIENT REPORTED ACHING PAIN IN LEFT LEG RATED 6/10. THIS STUDENT TOLD THE PT. HE COULD TAKE TYLENOL IN AN HOUR AND ASSESSED LEG. PT WAS PLEASANT AND LEFT RESTING IN BED WITH CALL LIGHT WITHIN REACH.
--- NOTE | 2019-12-25 09:00 | NUR ---
PATIENT SHIFT ASSESSMENT COMPLETED. PATIENT BREATH SOUNDS CLEAR AND DIMINISHED IN BASES. PATIENT SPO2 98% ON RA. BOWEL TONES ACTIVE. NO BM THIS AM. AWAITING C.DIFF CULTURES. PATIENT IS NOTED TO HAVE SIGNIFICANT SWELLING THROUGHOUT BODY. PATIENTS LEFT LEG WORSE THAN RIGHT. SWELLING IS WORSE IN HIS LEGS, BUT PITTING EDEMA NOTED THROUGHOUT AND ALL THE WAY UP HIS BACK. PATIENT COMPLAINS OF SOME PAIN IN HIS LEFT LEG. DRESSING IN PLACE. NO OTHER NEEDS AT THIS TIME. WILL CONTINUE TO CLOSELY MONITOR.
--- NOTE | 2019-12-25 09:17 | NUR ---
REASSESSED PT. CAP REFILL AND PERIPHERAL PULSES. LEFT PEDAL PULSE WAS NOT ASSESSED DUE TO WOUNDS, BUT TOES WARM AND PINK. CAP REFILL WNL. FLUSHED PERIPHERAL IVS AND HEP LOCKED CENTRAL LINE. PT. LEFT WITH HOB ELEVATED AND EATING BREAKFAST WITH CALL LIGHT WITHIN REACH.
--- NOTE | 2019-12-25 09:26 | NUR ---
PT. GOLDMAN WAS EMPTIED. URINE RAYNA AND CLEAR. SCROTUM EDEMATOUS PAINFUL TO TOUCH.
--- NOTE | 2019-12-25 10:14 | NUR ---
EMPTIED 60ML RAYNA URINE. PT. REPOSITIONED AND DENIED FURTHER NEEDS. LEFT RESTING IN BED WITH CALL LIGHT WITHIN REACH.
--- NOTE | 2019-12-25 10:51 | NUR ---
PATIENT ADMITTED FOR SEPTIC SHOCK DUE TO CELLULITIS ON R FOOT. HE HAS HISTORY OF CHF, A-FLUTTER/A-FIB. CURRENTLY ON A 2 GM SODIUM DIET. HE STATES HE WOULD LIKE A LIST OF FOODS HE CAN EAT ON A LOW-SODIUM DIET. HE DOESN'T EAT MUCH MEAT, SOMETIMES EATS TUNA. DOESN'T EAT MATIAS, SOMETIMES EATS BISCUITS AND GRAVY. HE DID TALK ABOUT FAST FOOD ONCE IN AWHILE. REALLY LIKES FRUIT. PROVIDED HIM A HANDOUT ON FOODS RECOMMENDED AND NOT RECOMMENDED WELL LOW-SODIUM SNACK LIST AND LOW-SODIUM TACO SEASONING RECIPE. SUGGESTED HE GET LOWER SODIUM CANNED SOUP, PLAIN RICE OR PASTA, YOGURT, FRUIT, OATMEAL, ETC. ARE ALL GOOD CHOICES. HE APPRECIATED THE EDUCATION AND SAID, "IF YOU TELL ME WHAT TO DO, I'LL DO IT."
--- NOTE | 2019-12-25 11:53 | NUR ---
PT. GIVEN BED BATH. TOLERATED WELL. REMOVED DRESSING ON LEFT LEG AND CLEANED, REDRESSED. OLD DRESSING WAS SATURATED WITH SERISANGUINOUS DRAINAGE. PT. LEFT RESTING IN BED WITH CALL LIGHT WITHIN REACH.
--- NOTE | 2019-12-25 12:07 | NUR ---
PT. DRESSING CHANGED ON LEFT LEG. LEG WAS CLEANED WITH SOAPY WATER, DRIED AND BACITRACIN WAS APPLIED. OLD BANDAGES WERE SATURATED IN SERISANGUINOUS DRAINAGE. PT. TOLERATED WELL. LEFT SITTING UP IN BED EATING LUNCH WITH CALL LIGHT WITHIN REACH.
--- NOTE | 2019-12-25 12:08 | NUR ---
PATIENT ASSESSMENT REMAINS UNCHANGED. PATIENT IS ON 4MCG/MIN. WILL MONTIOR PATIENTS BLOOD PRESSURE AND TRY TO WEAN OFF IF APPROPRIATE. BED BATH COMPLETED AND DRESSING CHANGED. PATIENT TOELRATED WELL. LUNCH AT THE BEDSIDE. WILL CONTINUE TO CLOSELY MONITOR.
--- NOTE | 2019-12-25 12:47 | NUR ---
PT. USED BED HUGGINS AND HAD A BM THAT WAS CLEAR LIQUID WITH A FEW BROWN SPOTS. PT. LEFT SITTING IN BED WITH CALL LIGHT WITHIN REACH.
--- NOTE | 2019-12-25 13:25 | NUR ---
PT. WAS CONCERNED THAT HIS BRIEFCASE SEWER, GEORGETTE, WAS SPENDING HIS MONEY AND REQUESTED TO CALL HIS BANK. PT. HARD OF HEARING SO THIS STUDENT HELPED SPEAK TO MAIL WEIGHER. UNAUTHORIZED CHARGES HAVE BEEN MADE WITH HIS DEBIT CARD SO ASSISTED WITH CANCELING HIS DEBIT CARD. PT. REPORTED THAT THE BRIEFCASE SEWER HAS STOLEN MONEY IN THE PAST AND NEVER FIXED HOT WATER HEATER WITH MONEY HE HAD GIVEN HER. BANK ADVISED FILING CHARGES AGAINST BRIEFCASE SEWER WITH POLICE AND COMING TO BANK TO REVIEW CHARGES. PT. STATED HE DID NOT WANT HER TO BE HIS BRIEFCASE SEWER WHEN HE RETURNED HOME. PT. LEFT RESTING BED WITH CALL LIGHT WITHIN REACH.
--- NOTE | 2019-12-25 13:40 | NUR ---
Spoke with Esa, he is feeling better and is clearer in his thought process. States he is concerned as he gave permission for friend to pay his bills and he is concerned his money is getting spent. Informed I can call [facility] and notify them and also will call his cg and tell her his concerns. Called and spoke with Jyoti and let her know Esa's concerns. She states she only paid the electricity bill and water bill as he had asked. Let her know I am just passing on his concerns and he made need assistance from a payee so I let [facility] know. Also let her know he agreed to go a [place]F [place]. She states she will cont. to work on having his house fumigated and cleaned. She understands how to call CC[facility] and speak with him on the phone in the room.
--- NOTE | 2019-12-25 14:15 | NUR ---
LEVOPHED GTT STOPPED AT THIS TIME. WILL MONITOR PATIENT BLOOD PRESSURE AND SEE HOW HE TOLERATES GTT BEING TURNED OFF. NO OTHER NEEDS AT THIS TIME. WILL CONTINUE TO CLOSELY MONITOR.
--- NOTE | 2019-12-25 16:26 | NUR ---
Progress notes, ER visit, H&P, medication list, labs faxed to [facility].
--- NOTE | 2019-12-25 17:30 | NUR ---
PT. FINISHED DINNER AND REPORTED RT. ARM FELT A LITTLE WEAK. PT. WAS ABLE TO LIFT HIS ARM AND DENIED PAIN. HE HAD USED ARM TO EAT. THIS STUDENT TOLD PT. TO REPORT IF IT CONTINUES OR WORSENS. PT. REPOSITIONED AND CATHETER EMPTIED. PT. LEFT RESTING IN BED WITH CALL LIGHT IN REACH.
--- NOTE | 2019-12-25 18:18 | NUR ---
PATIENTS BLOOD PRESSURE DECREASED WITH SYSTOLIC IN THE 80'S. RESTARTED ON LEVOPHED GTT. WILL CONTINUE TO TITRATE PER PARAMETERS.
--- NOTE | 2019-12-25 19:17 | NUR ---
PATIENT WOKE FROM [place] AND WAS CONFUSED. PATIENT DIDNT KNOW WHERE HE WAS. REORIENTED PATIENT. PATIENT HAS NOT SLEPT UNTIL AROUND 1745 UNTIL 1845. PER PATIENT HE DIDNT SLEEP WELL LAST NIGHT AND PER REPORT FROM THIS AM THE NURSES STATED HE DIDNT GET MUCH SLEEP. SEE NEW ORDERS FOR PRN SLEEP MEDICATION. WILL CONTINUE TO CLOSELY MONTIOR.
--- NOTE | 2019-12-25 19:30 | NUR ---
REPORT RECIEVED, CARE OF PATIENT ASSUMED AT THIS TIME. PATIENT LAYING IN BED AT LOWEST POSITION WITH LEVOPHED TITRATING INTO CENTRAL LINE AT 4MCG/MIN. PATIENT IS ALERT TO SELF AND GENERAL TIME BUT NOT LOCATION. PT. WAS REORIENTED. PATIENT REPORTS NO FURTHER NEEDS AT THIS TIME. PATIENT IN BED AWAKE WITH CALL LIGHT IN REACH. WILL CONTINUE TO MONITOR THE PATIENT.
--- NOTE | 2019-12-25 20:00 | NUR ---
PT ASSESSMENT COMPLETE. PT. HAS IV LEVOPHED TITRATING AT 4MCG/MIN. PT. FORGETFUL ON REASON FOR HOSPITALIZATION AND CURRENT LOCATION. PT WAS REORIENTED. PT. PATIENT UPDATED ON PLAN OF CARE AND NEW MEDICATION. PT. LAYING IN BED AND CALL LIGHT IS WITHIN REACH.
--- NOTE | 2019-12-25 21:16 | NUR ---
LEVOPHED DRIP TITRATED DOWN TO 2 MCG/MIN FOR MAPS CONSISTENTLY IN THE 70'S OVER THE LAST HOUR.
--- NOTE | 2019-12-25 22:00 | NUR ---
PT. STATED LEFT FOOT DRESSING WAS BOTHERING HIM. WOUND CARE WAS DONE PER ORDERS AND NEW DRESSING WAS PLACED. MILD SEROSANGUINOUS DRAINAGE PRESENT ON OLD DRESSING. PT. BED WAS REORGANIZED, GOLDMAN CARE WAS DONE, AND PT REPOSITIONED TO A SIDE LAYING POSITION. PATIENT HAS NO FURTHER COMPLAINTS AND HAS IV ANTIBIOTICS AND LEVOPHED INFUSING INTO HIS CENTRAL LINE AT THIS TIME. PATIENT LAYING IN BED AND CALL LIGHT IN REACH. WILL CONTINUE TO MONITOR THE PATIENT.
--- NOTE | 2019-12-25 22:45 | NUR ---
RESPONDED TO PT. IV PUMP ALARM. ADMINISTRATION OF CEFTRIAXONE AND LEVOFLOXACIN WAS COMPLETE. LUMEN FLUSHED AND HEPARIN LOCKED. PT. REPORTS NO NEEDS AT THIS TIME. PT. LAYING IN BED AND CALL LIGHT IS WITHIN REACH.
--- NOTE | 2019-12-25 23:19 | NUR ---
PT. WAS CHECKED ON BY RN HE WAS MOVING AROUND IN BED. PT. STATED THAT HE WANTED TO LAY DOWN ON HIS OTHER SIDE. PT WAS REPOSITIONED ONTO HIS OTHER SIDE. PT. REPORTS NO FURTHER NEEDS AT THIS TIME. BED IS IN LOWEST POSITION, BED RAILS UP, AND CALL LIGHT WITHIN REACH
--- NOTE | 2019-12-26 00:40 | NUR ---
PT. WAS CHECKED ON. PT. WAS MILDLY CONFUSED AND WAS REORIENTED TO THE UNIT AND RE-EDUCATED ON HIS GOLDMAN. PT. REPOSITIONED IN BED. PT. LAYING IN BED GOING TO SLEEP. BED IN LOWEST POSITION AND CALL LIGHT WITHIN REACH.
--- NOTE | 2019-12-26 00:55 | NUR ---
levophed drip titrated up to 4 mcg/min for MAPs in the low 60s.
--- NOTE | 2019-12-26 01:08 | NUR ---
PT. WAS CHECKED ON. PT. WAS CONFUSED AND STATED THAT HE WANTED TO GO PEE. PT. WAS REMINDED ON HOW HIS GOLDMAN CATHETER WORKED. PT. WAS REPOSITIONED IN BED. PT. REPORTS NO FURTHER NEEDS AT THIS TIME. PT LAYING IN BED, RAILS UP, AND CALL LIGHT WITHIN REACH. WILL CONTINUE TO MONITOR THE PT.
--- NOTE | 2019-12-26 02:00 | NUR ---
PT. WAS CHECKED ON HE WAS IN HIS ROOM AWAKE. PT. WAS REORIENTED TO HIS LOCATION AND REPOSITIONED. PT. HAD A DRINK OF HIS SODA AND WENT BACK BACK TO SLEEP. LEVOPHED DRIP STILL TITRATING AT 4MCG/MIN. PT. LAYING IN BED AND CALL LIGHT WITHIN REACH. WILL CONTINUE TO MONITOR PT.
--- NOTE | 2019-12-26 03:10 | NUR ---
PT. WAS AWAKE AND REPOSITIONED IN BED. ASSESSMENT WAS COMPLETED AFTERWARDS. PERIPHERAL IV'S ASSESSED FOR PATENCY. LEVOPHED DRIP WAS PUT ON STANDBY BY RN. PT. WAS REPOSITIONED AGAIN ONTO SIDE. PT. REPORTS NO FURTHER NEEDS. PT. LAYING IN BED, CALL LIGHT WITHIN REACH. WILL CONTNUE TO MONITOR.
--- NOTE | 2019-12-26 03:17 | NUR ---
LEVOPHED DRIP TURNED OFF AT THIS TIME. LAST BLOOD PRESSUR 128/75 (86).
--- NOTE | 2019-12-26 03:19 | NUR ---
IN ROOM TO ASSIST PT WITH REPOSITIONING. PT DEPENDENT SCROTAL EDEMA APPPEARS TO HAVE INCREASED. ELEVATED AT THIS TIME. PT ASSESSMENT COMPLETED. PT REMAINS CONFUSED BUT EASILY REORIENTED TO PLACE AND SITUATION. DRESSING ON RIGHT AC IV SATURATED, REDRESSED AND ASSESSED FOR PATENCY. WILL CONTINUE TO MONITOR PT FOR ORIENTATION AND BLOOD PRESSURES.
--- NOTE | 2019-12-26 04:15 | NUR ---
LEVOPHED DRIP TURNED BACK ON AT 2 MCG/MIN
--- NOTE | 2019-12-26 04:32 | NUR ---
PT. WAS CHECKED ON, PT. STATED THAT HE WAS HUNGRY. PT. WAS PROVIDED WITH A SNACK. PT. SITTING IN BED EATING, CALL LIGHT WITHIN REACH. WILL CONTINUE TO MONITOR.
--- NOTE | 2019-12-26 05:12 | NUR ---
PT. HAD A LUMEN ON CENTRAL LINE HEPARIN LOCKED. PT. WAS REPOSITIONED ON BED AFTERWARDS. IV ON RIGHT ARM WAS DC'D IT WAS DISLODGED/PARTIALLY OUT. PT. REPORTS NO FURTHER NEEDS AT THIS TIME. PT. LAYING IN BED WATCHING TV, CALL LIGHT WITHIN REACH.
--- NOTE | 2019-12-26 05:15 | NUR ---
LEVOPHED DRIP TITRATED UP TO 4 MCG/MIN FOR BLOOD PRESSURE OF 87/49 (58).
--- NOTE | 2019-12-26 05:50 | NUR ---
PT. HAD LABS DRAWN FROM CENTRAL LINE. LINE HEPARIN LOCKED ACCORDING TO POLICY. PT'S BED WAS ORGANIZED, PT. WAS REPOSITIONED. PT. REPORTS NO FURTHER NEEDS AT THIS TIME. BED IN LOWEST POSITION, CALL LIGHT WITHIN REACH. WILL CONTINUE TO MONITOR.
--- NOTE | 2019-12-26 07:30 | NUR ---
PATIENT SHIFT REPORT RECIEVED FROM COMPACT ASSEMBLER RN. PATIENT RESTING IN BED AT THIS TIME. PATIENT ON LEVOPHED GTT AT 4MCG/MIN AT THIS TIME. PER REPORT PATIENT HAS BEEN CONFUSED AND 1 TIME OF AGITATATION. WILL CONTINUE TO CLOSELY MONITOR.
--- NOTE | 2019-12-26 08:05 | NUR ---
PT. ASSESSMENT COMPLETED. PT WAS CONFUSED AND ASKED "WHEN IS THAT LADY COMING TO PICK ME UP?" REORIENTED PT. PT. DENIES PAIN. PT. LEFT SITTING UPRIGHT IN BED EATING BREAKFAST.
--- NOTE | 2019-12-26 09:39 | NUR ---
U/S TECH CALLED AT 0930 TO PERFORM U/S LEFT LOWER LEG TO EVAL FOR ANY ABSCESS. PICC CONSULT TO BE DONE, AND GROIN CENTRAL LINE TO BE REMOVED.
--- NOTE | 2019-12-26 10:30 | NUR ---
PATIENT IN GETTING A PICC PLACEMENT AT THIS TIME. WILL CONTINUE TO CLOSELY MONITOR.
--- NOTE | 2019-12-26 11:19 | NUR ---
PT attempted PT evaluation 11:10 AM. RN deferred PT due to pt. having a procedure beign done currently and then deffered PT until 12/27/2019 due to amount of procedures that will be done today and rest time required. Plan to attempt PT eval and treat 12/27/2019.
--- NOTE | 2019-12-26 12:30 | NUR ---
PATIENT LEG LEG CLEANED AND NEW DRESSINGS APPLIED. PATIENT TOLERATED WELL. LUNCH ORDERED AND AT THE BEDSIDE. CUT UP PATIENTS FOOD FOR HIM. NO OTHER NEEDS AT THIS TIME. WILL CONTINUE TO CLOSELY MONITOR.
--- NOTE | 2019-12-26 12:38 | NUR ---
PICC INSERTION NOTE: ASKED BY DR. WOODY TO EVALUATE PATIENT FOR POTENTIAL PICC PLACEMENT. AFTER REVIEWING THE CHART AND INTERVIEWING THE PATIENT, NO ABSOLUTE CONTRAINDICATIONS WERE IDENTIFIED. PATIENT IS CURRENTLY IN CCU AND ON VASOPRESSORS. PATIENT CURRENTLY HAS A FEMORAL GROIN CENTRAL LINE AND MD WOULD LIKE TO HAVE THIS REMOVED THE NEED FOR VASOPRESSORS CONTINUES. PATIENT ABLE TO SIGN CONSENT AND ASKS QUESTIONS PRIOR TO PROCEDURE STARTING. PATIENT'S RIGHT ARM WAS EVALUTED FIRST USING [employer] [facility]/S. PATIENT'S BASILIC, BRACHIAL, AND CEPHALIC VEINS WERE ALL EASILY IDENTIFIED, WITH THE BASILIC BEING THE BEST CHOICE IT WAS THE LARGEST OF THE THREE VEINS IDENTIFIED AND SUITABLE FOR A DOUBLE LUMEN PICC. AFTER PREPARING THE PATIENT AND HIS ARM BY USING [employer] RECOMMENDED GUIDELINES FOR STERILE PROCEDURE, THE BASILIC VEIN WAS ACCESSED EASILY ON THE FIRST ATTEMPT. DARK, BRISK, NON PULSATILE BLOOD RETURN WAS APPRECIATED. THE GUIDEWIRE AND INTRODUCER THREADED INTO THE VEIN EASILY. THE PICC LINE WAS THEN THREADED IN THROUGH THE INTRODUCER. RESISTANCE WAS FELT AND USING THE BlockTrailLOCK MAGNET GUIDE, THE ARM WAS REPOSITIONED AND THE PICC WAS ULTIMATELY ABLE TO BE ADVANCED. A TOTAL OF 3 CHEST XRAYS WERE TAKEN FOR TIP VERIFICATION. PICC LINE WAS REPOSITIONED AFTER 4 CM WAS PULLED BACK AFTER REVIEWING THE 2ND CHEST XRAY WITH DR. WOODY. A STERILE DRESSING WITH A BIO PATCH AND SECUREMENT DEVICE WAS APPLIED. PATIENT WAS GIVEN EDUCATION ABOUT HIS PICC LINE AND ENCOURAGED TO ASK QUESTIONS. PRESSURE DRESSING APPLIED OVER DRESSING WITH COBAN AND GAUZE TO HELP LEAKING. AWAITING FINAL CHEST XRAY READING FROM DR. REYES AT THIS TIME.
--- NOTE | 2019-12-26 13:23 | NUR ---
STOPPED LEVOPHED GTT AT THIS TIME. PATIENTS BLOOD PRESSURE 119/67. WILL CONTINUE TO CLOSELY MONITOR.
--- NOTE | 2019-12-26 15:08 | NUR ---
PATIENT TAKEN DOWN TO CT SCAN AND BACK. PT TOLERATED WELL. LINENS CHANGED WHILE PATIENT OFF HIS BED IN CT SCAN. PT ABLE TO LAY FLAT FOR SCAN AND REMAINS ON ROOM AIR. EDEMA REMAINS SIGNIFICANT THOUGHOUT BODY, ALL THE WAY UP TO ALMOST NIPPLE LINE FROM HIS LEGS. LEFT LEG OUTLINED WITH MARKER FROM [employer]. PT NOW RESTING.
--- NOTE | 2019-12-26 15:56 | NUR ---
PT. HAS SCROTAL EDEMA THIS STUDENT AND CHAD MCDONALD ELEVATED SCROTUM WITH ROLLED TOWEL. ADMINISTERED MEDS AND LEFT PT. RESTING IN BED WITH CALL LIGHT WITHIN REACH.
--- NOTE | 2019-12-26 17:45 | NUR ---
PATIENT RESTING IN BED. MD WOODY IN TO CHECK ON PATIENT. NEW ORDERS WILL BE PLACED.WILL FOLLOWUP WITH NEW ORDERS. PATIENT DINENR ORDERED. NO OTHER NEEDS AT THIS TIME. WILL CONTINUE TO CLOSELY MONITOR.
--- NOTE | 2019-12-26 18:55 | NUR ---
LABS DRAWN FROM PICC LINE. PATIENT TOELRATED WELL. PICC LINE REMAINS INTACT. NO LEAKING NOTED. PATIENT ATE HALF OF HIS DINNER. MAGCITRATE AT THE BEDSIDE. WILL CONTINUE TO ENCOURAGE HIM TO DRINK IT. NO OTHER NEEDS AT THIS TIME. CALL LIGHT IN REACH. WILL CONTINUE TO CLOSELY MONITOR.
--- NOTE | 2019-12-26 19:30 | NUR ---
REPORT RECIEVED FROM CCU RN, CARE OF PATIENT ASSUMED AT THIS TIME. PT REPORTS NEEDING TO GET UP TO BSC TO HAVE BOWEL MOVEMENT. PT STOOD AND TRANSFERED TO BSC WITH USE OF 4WW AND 2 PERSON ASSIST. PT HAD A DIFFICULT TIME GETTING BACK IN BED AFTER HAVING BOWEL MOVEMENT. PT BM WAS CLEAR MUCUS. REPOSITIONED PT IN BED, CALL LIGHT WITHIN REACH.
--- NOTE | 2019-12-26 20:00 | NUR ---
PT REPORT RECIEVED. CARE ASSUMED AT THIS TIME. PT. CURRENTLY HAS IV ANTIBIOTICS INFUSING. PT. LAYING IN BED AND CALL LIGHT IS WITHIN REACH. PT. UPDATED ON PLAN OF CARE.
--- NOTE | 2019-12-26 20:10 | NUR ---
PT. ASSESSMENT COMPLETE. PT. LAYING IN BED, IV ABX INFUSING. PT. UPDATED ON PLAN OF CARE AND MEDICATIONS. PT. REPORTS NO FURTHER NEEDS AT THIS TIME. PT. BED IN LOWEST POSITION, CALL LIGHT IN PLACE. WILL CONTINUE TO MONITOR.
--- NOTE | 2019-12-26 21:10 | NUR ---
MEDICATION ADMINISTRATION COMPLETE. PT. CURRENTLY INFUSING TWO ABX, AND ALBUMIN. PT. STATES NO FURTHER NEEDS AT THIS TIME. PT. LAYING IN BED, BED IN LOWEST POSITION, CALL LIGHT WITHIN REACH.
--- NOTE | 2019-12-26 21:49 | NUR ---
DR WOODY UPDATED ON PTS SOFT BLOOD PRESSURES AND HEART RATE TRENDING UP. PLAN OF CARE ESTABLISHED.
--- NOTE | 2019-12-26 22:40 | NUR ---
RESPONDED TO PT. IV ALARM. ALBUMIN AND VANCOMYCIN INFUSIONS COMPLETE. IV AND PICC LINE FLUSHED PER HOSPITAL PROTOCOL. PT. SLEEPING AT THIS TIME. BED IS IN LOWEST POSITION, BEDRAILS UP, CALL LIGHT WITHIN REACH.
--- NOTE | 2019-12-27 00:05 | NUR ---
IV ABX COMPLETED. PT. PLACED ON LEVOPHED DRIP DUE TO LOW BP. LEVOPHED CURRENTLY TITRATING AT 2MCG/MIN INTO PICC. PT. SLEEPING IN BED. BED IN LOWEST POSITION, RAILS UP, CALL LIGHT WITHIN REACH.
--- NOTE | 2019-12-27 00:37 | NUR ---
PT. ASSESSMENT COMPLETED. WOUND CARE ALSO COMPLETED. NOTICEABLE PETECHIAE ON PT'S LEFT FOOT. PT. STILL CONFUSED AT THIS TIME TO LOCATION. PT REPORTS NO FURTHER NEEDS AT THIS TIME. IV LEVOPHED STILL TITRATING AT 2MCG/MIN. PT. LAYING IN BED, BED AT LOWEST POSITION, CALL LIGHT WITHIN REACH. WILL CONTINUE TO MONITOR.
--- NOTE | 2019-12-27 01:26 | NUR ---
PT. IV ABX STARTED AND IS INFUSING INTO PICC. PT. REPORTS NO FURTHER NEEDS AT THIS TIME. PT. STILL ON LEVOPHED DRIP WHICH IS CURRENTLY TITRATING AT 2MCG/MIN. PT. REPORTS NO FURTHER NEEDS AT THIS TIME. PT. IS LAYING IN BED, BED IN LOWEST POSITION, CALL LIGHT WITHIN REACH.
--- NOTE | 2019-12-27 01:49 | NUR ---
PT. SYSTOLIC BLOOD PRESSURE WAS LOW. LEVOPHED DRIP HAS BEEN TITRATED UP TO 4MCG/MIN. PT. SLEEPING IN BED, RAILS UP, CALL LIGHT WITHIN REACH. WILL CONTINUE TO MONITOR.
--- NOTE | 2019-12-27 03:22 | NUR ---
PT CALLING OUT. ASSISTED PT WITH REPOSITIONING IN BED, ELEVATED LEGS AND SCROTUM. PT USED IS. DENIES PAIN. LEVOPHED AND ABX INFUSING. CALL LIGHT WITHIN REACH. NO FURTHER NEEDS AT THIS TIME.
--- NOTE | 2019-12-27 05:33 | NUR ---
PT. ANTIBIOTICS FINISHED INFUSING. LEVOPHED DRIP TITRATED DOWN TO 2MCG/MIN. PT ASSESSMENT COMPLETED. PT. STILL CONFUSED AND OCCASIONALLY ANSWERING QUESTIONS INCORRECTLY. PT. REPORTS NO FURTHER NEEDS AT THIS TIME. PT. BED IN LOWEST POSITION, BEDRAILS UP, CALL LIGHT WITHIN REACH. WILL CONTINUE TO MONITOR
--- NOTE | 2019-12-27 07:30 | NUR ---
PATIENT SHIFT REPORT RECIEVED [facility] [employer] [employer] RN. PER REPORT PATIENT HAD A BETTER NIGHT AND WAS ABLE TO GET SOME MORE SLEEP THROUGHOUT THE NIGHT. PER REPORT PATIENT DEVELOPED PETICHIA ON HIS LEFT LOWER EXTREMITY. WILL UPDATE MD WOODY. NO OTHER NEEDS AT THIS TIME. WILL CONTINUE TO CLOSELY MONITOR.
--- NOTE | 2019-12-27 08:47 | NUR ---
PT. ASSESSMENT COMPLETED. PT. STILL CONFUSED TO LOCATION AND TIME, BUT PLEASANT. PT. MOANED WHEN THIS STUDENT PALPATED HIS ABDOMEN. PT. STATED ABDOMEN HURT. HE HAD A CLEAR MUCUS BOWEL MOVEMENT. PT. LEFT RESTING IN BED WITH CALL LIGHT WITHIN REACH.
--- NOTE | 2019-12-27 09:00 | NUR ---
PATIENT SHIFT ASSESSMENT COMPLETED. PATIENT BREATH SOUNDS CLEAR AND DIMINISHED IN BASES. PATIENT REMAINS ON RA WITH SPO2 94-99%. PATIENT DENEIS SOB. BOWEL TONES ACTIVE. PATIENT HAD LOOSE CLEAR BM. PATIENTS ABD IS DISTENDED. PATIENT DENIES ANY ABD PAIN. PATIENTS LEFT LEG RAISED ON PILLOW. DRESSING INTACT, BUT DRAINAGE NOTED. CUT OFF DRESSING FOR MD TO REVIEW SITE. MD WOODY IN TO SEE PATIENT. WILL CONTINUE TO CLOSELY MONITOR.
--- NOTE | 2019-12-27 10:00 | NUR ---
levophed gtt stopped d/t blood pressures in the 120-130's sytolic. will montior blood pressures and restart if needed. no other needs at this time. patient medications given. all questions answered. patient updated on plan of care and possible transfer to another hospital for continued care at a higher level. patient is agreeable to plan of care.
--- NOTE | 2019-12-27 10:45 | NUR ---
PATIENT RESTING I NBED. PATIENTS BLOOD PRESSURE DROPPED BACK INTO THE 90'S SYSTOLIC OFF OF THE LEVOPHED. RESTARTED GTT PER MD WOODY. WILL LEAVE GTT ON AT THIS TIME. PATIENT IS RESTING IN BED. LUCNH ORDERED. PATIENT AWAITING TRANSFER TO [facility]. WILL CONTINUE TO CLOSELY MONITOR.
--- NOTE | 2019-12-27 11:27 | NUR ---
PT. FINISHED HIS BREAKFAST AND TOOK HIS MORNING MEDICATIONS. TOLERATED WELL. HIS LEFT LEG DRESSING WAS LEFT OFF AND LEG WAS OPEN TO AIR AFTER MD. ASSESSED AND WAITING FOR WOUND CARE NURSE TO REDRESS. PT. LEFT RESTING IN BED WITH CALL LIGHT WITHIN REACH.
--- NOTE | 2019-12-27 12:22 | NUR ---
PATIENT HAS REQUESTED STAFF NOT GIVE GEORGETTE ANY INFORMATION REGARDING HIS STAY. GEORGETTE CALLED AND REQUESTED AND UPDATE. TOLD HER PER OUR HIPPA REGULATIONS I CAN NOT GIVE HER ANY INFORMATION AT THIS TIME. THIS IS PER THE PATIENTS WISHES. PATIENT AGAIN TOLD STAFF "PLEASE DO NOT GIVE HER ANY INFORMATION, I DO NOT WANT HER TO KNOW MY STUFF, SHE HAS BEEN STEALING FROM ME AND I DO NOT TRUST HER".
--- NOTE | 2019-12-27 13:08 | NUR ---
PATIENT REPORT GIVEN TO EMS STAFF KARLENE. PATIENT WILL BE TRANSFERED TO [facility] [facility] AND IS AGREEABLE TO PLAN OF CARE. SENT PATIENTS MEDICATIONS AND HIS LIFEVEST WITH HIM. PATIENT REMAINS ON LEVOPHED AT 4MCG/MIN AT THIS TIME. SPOKE WITH PATIENTS BROTHER DONNELL BENJAMIN PRIOR TO PATIENT DISCHARGING. PATIENT WISHES HIM TO BE THE NEXT OF KIN. PER DONNELL HE IS AGREEABLE TO THIS. UPDATED DONNELL ON HIS BROTHERS CONDITION AND PLAN OF CARE. ROSIE SPOKE WITH HIM PRIOR TO DISCHARGE WELL. NO OTHER NEEDS AT THIS TIME. WILL CALL AND GIVE REPORT TO [facility] [place] RN.
--- NOTE | 2019-12-27 13:30 | NUR ---
REPORT CALLED TO [facility] CHAD PERES. ALL QUESTIONS ANSWERED. UPDATED STAFF THAT PATIENT DOES NOT WANT GEORGETTE HIS CAREGIVER TO KNOW ANY INFORMATION REGUARDING HIS STAY OR CONDITION. ONLY SPEAK WITH HIS BTOHER DONNELL. PHONE NUMBER FOR DONNELL IS [phone]. NO OTHER QUESTIONS AT THIS TIME.
== END 2019-12-27 13:05 | disposition short-term general hospital (02) | DRG 871 ==
LOC: ED 18:43 → CCU 22:29
PROVIDERS: ADMIT Internal Medicine
PROC: 06HM33Z Insertion of Infusion Device into Right Femoral Vein, Percutaneous Approach (ICD-10-PCS; principal; 2019-12-23)
PROC: 0H9NXZZ Drainage of Left Foot Skin, External Approach (ICD-10-PCS; 2019-12-23)
PROC: 3E033XZ Introduction of Vasopressor into Peripheral Vein, Percutaneous Approach (ICD-10-PCS; 2019-12-23)
PROC: 30233N1 Transfusion of Nonautologous Red Blood Cells into Peripheral Vein, Percutaneous Approach (ICD-10-PCS; 2019-12-24)
PROC: 02HV33Z Insertion of Infusion Device into Superior Vena Cava, Percutaneous Approach (ICD-10-PCS; 2019-12-26)
DX: A41.9 Sepsis, unspecified organism (principal); R65.21 Severe sepsis with septic shock; J18.9 Pneumonia, unspecified organism; L03.116 Cellulitis of left lower limb; K82.1 Hydrops of gallbladder; N17.9 Acute kidney failure, unspecified; I50.22 Chronic systolic (congestive) heart failure; E87.1 Hypo-osmolality and hyponatremia; I48.92 Unspecified atrial flutter; K81.9 Cholecystitis, unspecified; E78.5 Hyperlipidemia, unspecified; E88.09 Other disorders of plasma-protein metabolism, not elsewhere classified; I11.0 Hypertensive heart disease with heart failure; S90.822A Blister (nonthermal), left foot, initial encounter; E87.6 Hypokalemia; D64.9 Anemia, unspecified; Z88.8 Allergy status to other drugs, medicaments and biological substances; Z87.891 Personal history of nicotine dependence; Z79.01 Long term (current) use of anticoagulants; Z79.82 Long term (current) use of aspirin; Z79.899 Other long term (current) drug therapy
CPT/HCPCS: 36430; 36556; 51702; 70450; 71045; 71250; 74176; 76882; 80048; 80053; 80074; 80076; 80202; 81001; 82570; 82977; 83605; 83615; 83735; 83880; 84156; 84300; 84484; 84540; 85025; 85027; 86060; 86850; 86900; 86901; 86920; 87045; 87046; 87077; 87205; 87449; 87493; 87899; 93005; 93010; 93971; 96368; 99285-25; J0692; J0696; J1940; J1956; J3370; J3475; J3480; J7030; J7050; J7060; J7121; P9016; P9047; U0002